=== PATIENT | female | born 1940 | race Caucasian/White ===

== ENCOUNTER 2016-07-02 18:45 | Emergency (ER) | payer MEDICARE, MEDICAID ==
[~2016-07-02] VITALS: Ht 149.9 cm; Wt 61.0 kg
[2016-07-02 19:24] VITALS: BP 165/72; PULSE 82; RESP 18; TEMP 97.5; O2SAT 97
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
[2016-07-02] MEDS ORDERED: SYNT88TA PO (19:46)
[2016-07-02] MEDS ORDERED: LEVE250 PO (19:46)
[2016-07-02 21:55] LABS: AUTOMATED NEUTROPHIL # 9.4 TH/MM3 (1.8-7.7); BASOPHIL # 0.1 TH/MM3 (0-0.2); BASOPHIL % 0.9 % (0.0-2.0); EOSINOPHIL # 0.3 TH/MM3 (0-0.4); EOSINOPHIL % 2.1 % (0.0-4.0); HEMATOCRIT 35.3 % (35.0-46.0); HEMO FLAGS DIFF FINAL; LYMPH % 16.4 % (9.0-44.0); LYMPHOCYTE # 2.1 TH/MM3 (1.0-4.8); MEAN CELL VOLUME 78.1 FL (80.0-100.0); MEAN CORPUSCULAR HEMOGLOBIN 25.6 PG (27.0-34.0); MEAN CORPUSCULAR HGB CONC 32.7 % (32.0-36.0); NEUT % 74.6 % (16.0-70.0); PLATELET COUNT 219 TH/MM3 (150-450); RED BLOOD COUNT 4.52 MIL/MM3 (4.00-5.30); RED CELL DISTRIBUTION WIDTH 17.9 % (11.6-17.2); WHITE BLOOD COUNT 12.6 TH/MM3 (4.0-11.0)
[2016-07-02 22:18] LABS: ANION GAP 27 MEQ/L (5-15)
[2016-07-02 22:21] LABS: ALKALINE PHOSPHATASE 126 U/L (45-117); ALT (GPT) 25 U/L (10-53); AST (GOT) 18 U/L (15-37); BICARBONATE LESS THAN 5.0 MEQ/L (21.0-32.0); BLOOD UREA NITROGEN LESS THAN 1 MG/DL (7-18); CHLORIDE 109 MEQ/L (98-107); GLOMERULAR FILTRATION RATE 70 ML/MIN (>89); POTASSIUM 3.4 MEQ/L (3.5-5.1); SODIUM (NA) 141 MEQ/L (136-145); TOTAL BILIRUBIN ADULT 0.4 MG/DL (0.2-1.0)
[2016-07-02] MEDS ORDERED: LOSA50TA PO (22:28)
[2016-07-02] MEDS ORDERED: ISOS10TA3 PO (22:28)
[2016-07-02] MEDS ORDERED: DIAZ10 PO (22:28)
[2016-07-02] MEDS ORDERED: ZOLO25TA PO (22:28)
[2016-07-02] MEDS ORDERED: PREV30CA11 PO (22:28)
[2016-07-02] MEDS ORDERED: LIPI20TA PO ×2 (22:28→23:09)
[2016-07-02] MEDS ORDERED: LEVEMIR SQ (22:28)
[2016-07-02] MEDS ORDERED: DIGO0.12 PO (22:28)
[2016-07-02] MEDS ORDERED: PLAV75TA29 PO (22:28)
[2016-07-02] MEDS ORDERED: ASPI81CH37 CHEW (22:53)
[2016-07-02 23:29] LABS: AMPHETAMINE, URINE NEG (NEG); BARBITURATES, URINE NEG (NEG); COCAINE, URINE NEG (NEG)
[2016-07-02] MEDS ORDERED: SERTRALINE HCL 50 MG TAB PO ONE (23:30)
[2016-07-02] MEDS ORDERED: ATORVASTATIN 20 MG TAB PO ONE (23:30)
[2016-07-02] MEDS ORDERED: levETIRAcetam 250 MG TAB PO ONE (23:30)
[2016-07-02 23:47] LABS: BACTERIA, URINE FEW /hpf; BLOOD, URINE NEG (NEG); GLUCOSE,URINE 300 mg/dL (NEG); HYALINE CAST, URINE 2 /lpf (RARE); KETONE, URINE 40 mg/dL (NEG); MUCUS URINE FEW /lpf (OCC); NITRITE,URINE NEG (NEG); SQUAMOUS EPITHELIAL CELL URINE 8 /hpf (0-5); URINE COLOR YELLOW (YELLW/STRAW)
[2016-07-02 23:49] LABS: COMMENT (UR) CULTURE INDICATED; CULTURE IF INDICATED CULTURE INDICATED
[2016-07-03 02:26] VITALS: BP 160/78; PULSE 72; RESP 18; O2SAT 96
[2016-07-03 08:39] VITALS: BP 138/64; PULSE 76; RESP 18; O2SAT 98
--- NOTE | 2016-07-03 13:19 | EKG ---
Date Performed: 07/02/2016 Time Performed: 19:58:32 PTAGE: 75 years EKG: Sinus rhythm LOW QRS VOLTAGE IN PRECORDIAL LEADS NONSPECIFIC ST & T-WAVE ABNORMALITY BORDERLINE ECG NO PREVIOUS TRACING DOCTOR: Robin Francisco Interpretating Date/Time 07/03/2016 13:16:48
[2016-07-03 14:15] VITALS: BP 149/65; PULSE 72; RESP 18; O2SAT 99
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
== END 2016-07-03 22:02 | disposition home or self-care (01) ==
LOC: NEPC 18:45 → NEPD 07-03 22:02
DX: T76.91XA Unspecified adult maltreatment, suspected, initial encounter (principal); F43.21 Adjustment disorder with depressed mood; Z79.899 Other long term (current) drug therapy
CPT/HCPCS: 80053; 80307; 81001; 85025; 87086; 93005

== ENCOUNTER 2016-09-03 18:27 | Inpatient (IN) | payer MEDICARE, MEDICAID, OTHER ==
[~2016-09-03] VITALS: Ht 149.9 cm; Wt 55.2 kg
[~2016-09-03 18:27] MED LIST: ASPI81CH37 CHEW; DIAZ10 PO; DIGO0.12 PO; ISOS10TA3 PO; LEVE250 PO; LEVEMIR SQ; LIPI20TA PO; LOSA50TA PO; PLAV75TA29 PO; PREV30CA11 PO; SYNT88TA PO; ZOLO25TA PO
[2016-09-03 18:30] VITALS: BP 134/70; PULSE 110; RESP 16; TEMP 98.3
[2016-09-03 22:37] VITALS: BP 141/79; PULSE 72; RESP 12; O2SAT 100
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
[2016-09-04 00:09] LABS: AUTOMATED NEUTROPHIL # 6.8 TH/MM3 (1.8-7.7); BASOPHIL % 0.4 % (0.0-2.0); EOSINOPHIL # 0.2 TH/MM3 (0-0.4); EOSINOPHIL % 2.3 % (0.0-4.0); HEMATOCRIT 35.7 % (35.0-46.0); HEMO FLAGS DIFF FINAL; LYMPH % 20.7 % (9.0-44.0); MEAN CORPUSCULAR HEMOGLOBIN 25.9 PG (27.0-34.0); MEAN CORPUSCULAR HGB CONC 32.8 % (32.0-36.0); MONO % 5.8 % (0.0-8.0); NEUT % 70.8 % (16.0-70.0); PLATELET COUNT 277 TH/MM3 (150-450); RED BLOOD COUNT 4.51 MIL/MM3 (4.00-5.30); RED CELL DISTRIBUTION WIDTH 17.8 % (11.6-17.2); WHITE BLOOD COUNT 9.6 TH/MM3 (4.0-11.0)
[2016-09-04 00:24] LABS: ALT (GPT) 31 U/L (10-53); ANION GAP 11 MEQ/L (5-15); AST (GOT) 32 U/L (15-37); BICARBONATE 23.8 MEQ/L (21.0-32.0); BLOOD UREA NITROGEN 9 MG/DL (7-18); CHLORIDE 108 MEQ/L (98-107); GLOMERULAR FILTRATION RATE 90 ML/MIN (>89); POTASSIUM 3.5 MEQ/L (3.5-5.1); SODIUM (NA) 143 MEQ/L (136-145)
[2016-09-04 00:26] LABS: ACETAMINOPHEN LESS THAN 2.0 MCG/ML (10.0-30.0); ALKALINE PHOSPHATASE 104 U/L (45-117); TOTAL BILIRUBIN ADULT 0.5 MG/DL (0.2-1.0)
[2016-09-04 01:00] VITALS: BP 134/81; PULSE 77; RESP 16; O2SAT 100
[2016-09-04 03:43] LABS: BACTERIA, URINE RARE /hpf; BLOOD, URINE NEG (NEG); COMMENT (UR) CULT NOT INDICATED; CULTURE IF INDICATED CULT NOT INDICATED; GLUCOSE,URINE 70 mg/dL (NEG); KETONE, URINE 40 mg/dL (NEG); MUCUS URINE FEW /lpf (OCC); NITRITE,URINE NEG (NEG); PH, URINE 6.5 (5.0-8.5); SQUAMOUS EPITHELIAL CELL URINE <1 /hpf (0-5); URINE COLOR YELLOW (YELLW/STRAW)
[2016-09-04 03:48] LABS: AMPHETAMINE, URINE NEG (NEG); BARBITURATES, URINE NEG (NEG); COCAINE, URINE NEG (NEG)
[2016-09-04 05:29] VITALS: BP 137/83; PULSE 72; RESP 16; O2SAT 100
[2016-09-04] MEDS ORDERED: DIPHENOXYLATE/ATROPINE 2.5 MG/0.025 MG TAB PO ONE (06:15)
[2016-09-04 11:00] VITALS: BP 148/67; PULSE 65; RESP 19; TEMP 97.2; O2SAT 96
[2016-09-04] MEDS ORDERED: ACETAMINOPHEN 325 MG TAB PO PRN (11:15)
[2016-09-04] MEDS ORDERED: MAGNESIUM HYDROXIDE SUSP 30 ML CUP PO PRN (11:15)
[2016-09-04] MEDS ORDERED: ALUMINUM/MAGNESIUM/SIMETH 30 ML CUP PO PRN (11:15)
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
[2016-09-04 12:33] LABS: C. DIFF EPI 027 PRESUMPTIVE NEGATIVE (NEGATIVE)
[2016-09-04 13:58] LABS: C. DIFF TOXIN PCR POSITIVE (NEGATIVE)
[2016-09-04 18:00] VITALS: BP 158/66; PULSE 74; TEMP 97.2; O2SAT 96
[2016-09-04] MEDS: levETIRAcetam 500 MG TAB PO SCH (23:31)
[2016-09-05 00:25] VITALS: BP 143/78; PULSE 111; RESP 20
[2016-09-05] MEDS ORDERED: OLANZapine IM 10 MG VIAL IM SCH (00:30)
[2016-09-05] MEDS: levETIRAcetam 500 MG TAB PO SCH ×2 (09:00→21:17)
[2016-09-05 10:40] LABS: ANION GAP 9 MEQ/L (5-15); BICARBONATE 22.4 MEQ/L (21.0-32.0); BLOOD UREA NITROGEN 8 MG/DL (7-18); CHLORIDE 110 MEQ/L (98-107); GLOMERULAR FILTRATION RATE 90 ML/MIN (>89); HDL CHOLESTEROL 43.7 MG/DL (40.0-60.0); LDL CHOLESTEROL 61 MG/DL (0-99); POTASSIUM 3.9 MEQ/L (3.5-5.1); SODIUM (NA) 141 MEQ/L (136-145)
[2016-09-05] MEDS: ASPIRIN 81 MG CHEW TAB CHEW SCH (10:45)
[2016-09-05] MEDS: LOSARTAN 50 MG TAB PO SCH (10:45)
[2016-09-05] MEDS: INSULIN DETEMIR 100 UNITS/ML VIAL SQ SCH ×2 (10:45→21:22)
[2016-09-05] MEDS: SERTRALINE HCL 50 MG TAB PO SCH (10:45)
[2016-09-05] MEDS: CLOPIDOGREL 75 MG TAB PO SCH (10:45)
[2016-09-05] MEDS: ISOSORBIDE MONONITRATE 30 MG TAB PO SCH ×2 (11:00→21:17)
[2016-09-05 13:52] LABS: HEMOGLOBIN A1a 1.6 %; HEMOGLOBIN A1b 2.3 %; HEMOGLOBIN Ao 80.6 %; HEMOGLOBIN LA1C 2.8 %; HEMOGLOBIN P3 4.6 %
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
[2016-09-05] MEDS ORDERED: DEXTROSE 50% IN WATER 50 ML VIAL(D50) IV PUSH PRN (15:45)
[2016-09-05] MEDS ORDERED: GLUCAGON 1 MG/ML VIAL OTHER PRN (15:45)
[2016-09-05] MEDS: INSULIN ASPART SUPPLEMENTAL SCALE SQ SCH ×2 (16:00→21:20)
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
[2016-09-05] MEDS ORDERED: cloNIDine HCL 0.1 MG TAB PO PRN (16:45)
[2016-09-05] MEDS: metroNIDAZOLE 500 MG TAB PO SCH (17:00)
[2016-09-05] MEDS: PANTOPRAZOLE SOD 40 MG DELAYED RELEASE TAB PO SCH (21:16)
[2016-09-05] MEDS: QUEtiapine FUMARATE 25 MG TAB PO SCH (21:16)
[2016-09-05] MEDS: ATORVASTATIN 20 MG TAB PO SCH (21:16)
--- NOTE | 2016-09-05 23:04 | RADRPT ---
EXAM DATE/TIME: 09/05/2016 22:28 [place] COMPARISON: No previous studies available for comparison. INDICATIONS : Shortness of breath. MEDICAL HISTORY : None. SURGICAL HISTORY : Pacemaker. ENCOUNTER: Initial ACUITY: 1 day PAIN SCORE: 0/10 LOCATION: Bilateral chest FINDINGS: There are nodular densities overlying the left lung. These are nonspecific. Differential includes r ib lesions or possibly true pulmonary nodules. Outpatient CT of the chest may be helpful for further evaluation of these findings. There is no pulmonary infiltrate or pulmonary vascular congestion. M edian sternotomy wires are noted status post cardiac surgery. A left subclavian single lead pacemake r has its tip in the right ventricle. No pneumothorax is noted. Degenerative changes and scoliosis of the thoracic spine are noted. CONCLUSION: 1. Nodular densities overlying the left lung which either represent rib lesions or possibly true pul monary nodules. Outpatient CT of the chest may be helpful for further evaluation of these nodules, i f clinically indicated. 2. No acute focal pulmonary infiltrate or pulmonary vascular congestion. 3. Degenerative changes and scoliosis of the thoracic spine. Margarito Howe MD on September 05, 2016 at 22:52 Board Certified Radiologist. This report was verified electronically.
[2016-09-06] MEDS: metroNIDAZOLE 500 MG TAB PO SCH ×3 (01:23→17:00)
[2016-09-06 05:36] VITALS: BP 109/56; PULSE 67; RESP 16; TEMP 98; O2SAT 95
[2016-09-06] MEDS: INSULIN ASPART SUPPLEMENTAL SCALE SQ SCH ×4 (06:14→21:45)
[2016-09-06] MEDS: LEVOTHYROXINE SODIUM 88 MCG TAB PO SCH (06:15)
[2016-09-06] MEDS: ASPIRIN 81 MG CHEW TAB CHEW SCH (09:55)
[2016-09-06] MEDS: CLOPIDOGREL 75 MG TAB PO SCH (09:55)
[2016-09-06] MEDS: SERTRALINE HCL 50 MG TAB PO SCH (09:55)
[2016-09-06] MEDS: ISOSORBIDE MONONITRATE 30 MG TAB PO SCH ×2 (09:55→21:42)
[2016-09-06] MEDS: LOSARTAN 50 MG TAB PO SCH (09:55)
[2016-09-06] MEDS: levETIRAcetam 500 MG TAB PO SCH ×2 (09:55→21:42)
[2016-09-06] MEDS: INSULIN DETEMIR 100 UNITS/ML VIAL SQ SCH (09:56)
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
--- NOTE | 2016-09-06 16:06 | HHI.PR ---
Subjective Remarks Follow up on patient with CVA, CAD and DM. She was seen and examined today. Patient denies any acute medical complaints. No pain or discomfort. Denies any fever, chills, nausea/vomiting, shortness of breath, chest pain or abdominal pain. Objective Vitals Vital Signs Date Time Temp Pulse Resp B/P Pulse Ox O2 Delivery O2 Flow Rate FiO2 09/06/16 05:36 98.0 67 16 109/56 95 I/O 09/05/16 09/05/16 09/05/16 09/06/16 09/06/16 09/06/16 06:59 14:59 22:59 06:59 14:59 22:59 Intake Total 1080 ml 0 ml 960 ml Balance 1080 ml 0 ml 960 ml Intake Oral 1080 ml 0 ml 960 ml # Voids 1 5 1 # Bowel Movements 0 0 Result Diagram: 09/03/16 2349 09/05/16 0803 Imaging Last Impressions Chest X-Ray 09/05/16 0000 Signed Impressions: Service Date/Time: Monday, September 05, 2016 22:28 - CONCLUSION: 1. Nodular densities overlying the left lung which either represent rib lesions or possibly true pulmonary nodules. Outpatient CT of the chest may be helpful for further evaluation of these nodules, if clinically indicated. 2. No acute focal pulmonary infiltrate or pulmonary vascular congestion. 3. Degenerative changes and scoliosis of the thoracic spine. Margarito Howe MD Objective Remarks GENERAL: Well-developed, well-nourished, INAD. Awake and alert. Sitting up in day room. SKIN: Focused skin assessment warm/dry. HEENT: Atraumatic. Normocephalic. EOMI. MMM. CARDIOVASCULAR: Regular rate and rhythm. No murmur appreciated. RESPIRATORY: Poor respiratory effort. Clear to auscultation. GASTROINTESTINAL: Abdomen soft, non-tender, nondistended. MUSCULOSKELETAL: No obvious deformities. No clubbing. No cyanosis. No edema. NEUROLOGICAL: Awake and alert. Able to move all extremities. Motor grossly within normal limits. Normal speech. Medications and IVs Current Medications Medications (Trade) Dose Ordered Sig/Alpa Route Start Time Stop Time Status Last Admin (Tylenol) 650 mg Q4H PRN PO 09/04/16 11:15 (Milk Of Magnesia Liq) 30 ml DAILY PRN PO 09/04/16 11:15 (Mag-Al Plus Susp Liq) 30 ml Q6H PRN PO 09/04/16 11:15 (Keppra) 1,000 mg BID PO 09/04/16 21:30 09/06/16 09:55 (SEROquel) 25 mg HS PO 09/05/16 21:00 09/05/16 21:16 (Aspirin Chew) 81 mg DAILY CHEW 09/05/16 10:45 09/06/16 09:55 (Lipitor) 20 mg HS PO 09/05/16 21:00 09/05/16 21:16 (Plavix) 75 mg DAILY PO 09/05/16 10:45 09/06/16 09:55 (Imdur) 30 mg BID PO 09/05/16 11:00 09/06/16 09:55 (Synthroid) 88 mcg DAILY@06 PO 09/06/16 06:00 09/06/16 06:15 (Cozaar) 50 mg DAILY PO 09/05/16 10:45 09/06/16 09:55 (Zoloft) 25 mg DAILY PO 09/05/16 10:45 09/06/16 09:55 (Protonix) 40 mg HS PO 09/05/16 21:00 09/05/16 21:16 (D50w (Vial) Inj) 25 ml UNSCH PRN IV PUSH 09/05/16 15:45 (Glucagon Inj) 1 mg UNSCH PRN OTHER 09/05/16 15:45 (Flagyl) 500 mg Q8H PO 09/05/16 17:00 09/06/16 09:55 (Catapres) 0.1 mg Q6H PRN PO 09/05/16 16:45 (Levemir Inj) 14 units DAILY SQ 09/07/16 09:00 A/P Assessment and Plan 76yo female with a past medical history of CVA, CAD and DM who is presenting to the hospital under a Gonzalez Act for aggressive behavior. Hospitalist services consulted for medical management. Psychosis The pt was brought to the hospital under a Gonzalez Act. May have delirium. UA negative. C diff positive. - care per psychiatry. - CXR shows nodular densities overlying the left lung which could possibly represent rib lesion or possible true pulmonary nodules. Patient will need a follow-up with her primary care physician for outpatient CT of the chest for further evaluation. - continue to treat C diff. C diff PCR positive but toxin study negative. Pt without diarrhea at this time. May be underlying reason for aggressive behavior. Daughter says she was recently treated for a severe stomach infection but is not sure of the details. She has had some loose stools at home. - repeat C diff cancelled by lab. - continue Flagyl. PITO Apparently the pt is on CPAP but has not been using it since May because it was broken. - continue to use CPAP from home DM On insulin as an outpt. - HgbA1c 7.8 - resume insulin but decrease Levemir to 14u daily. - continue insulin sliding scale. - BS 96 this am. Continue accuchecks. HTN - continue home meds. - clonidine as needed. PPx: SCDs Discussed with patient, nursing staff and Dr. Jg Tamayo,Tiffany PAN Sep 06, 2016 16:06
[2016-09-06 18:00] VITALS: BP 144/86; PULSE 107; RESP 16; TEMP 97.9; O2SAT 98
[2016-09-06] MEDS: QUEtiapine FUMARATE 25 MG TAB PO SCH (21:42)
[2016-09-06] MEDS: ATORVASTATIN 20 MG TAB PO SCH (21:42)
[2016-09-06] MEDS: PANTOPRAZOLE SOD 40 MG DELAYED RELEASE TAB PO SCH (21:42)
[2016-09-07] MEDS: metroNIDAZOLE 500 MG TAB PO SCH ×3 (00:20→17:00)
[2016-09-07 06:00] VITALS: BP 97/50; PULSE 71; RESP 16; O2SAT 100
[2016-09-07] MEDS: INSULIN ASPART SUPPLEMENTAL SCALE SQ SCH ×4 (06:15→21:32)
[2016-09-07] MEDS: LEVOTHYROXINE SODIUM 88 MCG TAB PO SCH (06:20)
[2016-09-07] MEDS: ASPIRIN 81 MG CHEW TAB CHEW SCH (09:00)
[2016-09-07] MEDS: CLOPIDOGREL 75 MG TAB PO SCH (09:00)
[2016-09-07] MEDS: INSULIN DETEMIR 100 UNITS/ML VIAL SQ SCH (09:00)
[2016-09-07] MEDS: ISOSORBIDE MONONITRATE 30 MG TAB PO SCH ×2 (09:00→21:30)
[2016-09-07] MEDS: levETIRAcetam 500 MG TAB PO SCH ×2 (09:00→21:30)
[2016-09-07] MEDS: SERTRALINE HCL 50 MG TAB PO SCH (09:00)
[2016-09-07] MEDS: LOSARTAN 50 MG TAB PO SCH (09:00)
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
[2016-09-07 17:44] VITALS: BP 123/63; PULSE 88; RESP 18; TEMP 97.5; O2SAT 97
[2016-09-07] MEDS: QUEtiapine FUMARATE 25 MG TAB PO SCH (21:30)
[2016-09-07] MEDS: PANTOPRAZOLE SOD 40 MG DELAYED RELEASE TAB PO SCH (21:30)
[2016-09-07] MEDS: ATORVASTATIN 20 MG TAB PO SCH (21:30)
[2016-09-08] MEDS: metroNIDAZOLE 500 MG TAB PO SCH ×2 (00:04→09:08)
[2016-09-08 06:27] VITALS: BP 141/80; PULSE 95; RESP 17; TEMP 96.8; O2SAT 95
[2016-09-08] MEDS: LEVOTHYROXINE SODIUM 88 MCG TAB PO SCH (06:28)
[2016-09-08] MEDS: INSULIN ASPART SUPPLEMENTAL SCALE SQ SCH ×2 (06:30→11:00)
[2016-09-08] MEDS: INSULIN DETEMIR 100 UNITS/ML VIAL SQ SCH (09:00)
[2016-09-08] MEDS: CLOPIDOGREL 75 MG TAB PO SCH (09:09)
[2016-09-08] MEDS: LOSARTAN 50 MG TAB PO SCH (09:09)
[2016-09-08] MEDS: levETIRAcetam 500 MG TAB PO SCH (09:09)
[2016-09-08] MEDS: ISOSORBIDE MONONITRATE 30 MG TAB PO SCH (09:09)
[2016-09-08] MEDS: SERTRALINE HCL 50 MG TAB PO SCH (09:09)
[2016-09-08] MEDS: ASPIRIN 81 MG CHEW TAB CHEW SCH (09:09)
[2016-09-08] MEDS ORDERED: QUET1TAB7 PO (11:00)
[2016-09-08] MEDS ORDERED: KEPP10002 PO (11:00)
[2016-09-08] MEDS ORDERED: ATOR20TA15 PO (11:00)
[2016-09-08] MEDS ORDERED: SYNT88TA PO (11:00)
[2016-09-08] MEDS ORDERED: PANT40TA3 PO (11:00)
[2016-09-08] MEDS ORDERED: LEVEMIR SQ (11:00)
[2016-09-08] MEDS ORDERED: COZA50TA PO (11:00)
[2016-09-08] MEDS ORDERED: ISOS30TA3 PO (11:00)
[2016-09-08] MEDS ORDERED: METR-1 PO (11:00)
[2016-09-08] MEDS ORDERED: ASPI81CH25 CHEW (11:00)
[2016-09-08] MEDS ORDERED: PLAV75TA29 PO (11:00)
[2016-09-08] MEDS ORDERED: ZOLO25TA PO (11:00)
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
--- NOTE | 2016-09-08 13:01 | HHI.PR ---
Subjective Remarks Follow up on patient with CVA, CAD and DM. She is seen and examined today. Reports she is doing well. Denies any abdominal cramping, diarrhea. Denies pain and discomfort. Denies SOB/ dyspnea. Denies chest pain, palpitations, headaches, dizziness. Denies fevers, chills, n/v. Denies hematuria, dysuria. Objective Vitals Vital Signs Date Time Temp Pulse Resp B/P Pulse Ox O2 Delivery O2 Flow Rate FiO2 09/08/16 06:27 96.8 95 17 141/80 95 09/07/16 17:44 97.5 88 18 123/63 97 I/O 09/07/16 09/07/16 09/07/16 09/08/16 09/08/16 09/08/16 07:00 15:00 23:00 07:00 15:00 23:00 Intake Total 720 ml 1680 ml 0 ml 240 ml Balance 720 ml 1680 ml 0 ml 240 ml Intake Oral 720 ml 1680 ml 0 ml 240 ml # Voids 1 5 1 Result Diagram: 09/03/16 2349 09/05/16 0803 Imaging Last Impressions Chest X-Ray 09/05/16 0000 Signed Impressions: Service Date/Time: Monday, September 05, 2016 22:28 - CONCLUSION: 1. Nodular densities overlying the left lung which either represent rib lesions or possibly true pulmonary nodules. Outpatient CT of the chest may be helpful for further evaluation of these nodules, if clinically indicated. 2. No acute focal pulmonary infiltrate or pulmonary vascular congestion. 3. Degenerative changes and scoliosis of the thoracic spine. Margarito Howe MD Objective Remarks GENERAL: This is a well-nourished, well-developed patient, in no apparent distress. SKIN: Warm and dry HEENT: Normocephalic. Pupils equal round and reactive. Nose without bleeding. Airway patent. NECK: Trachea midline. No JVD. Supple. CARDIOVASCULAR: Regular rate and rhythm without murmurs, gallops, or rubs. RESPIRATORY: Clear to auscultation. Breath sounds equal bilaterally. No wheezes , rales, or rhonchi. GASTROINTESTINAL: Abdomen soft, non-tender, nondistended. Bowel Sounds normoactive x4. MUSCULOSKELETAL: Extremities without clubbing, cyanosis, or edema. NEUROLOGICAL: Awake and alert. Oriented to place, person. No focal neuro deficit. Moves all extremities. Normal speech. A/P Problem List: (1) Adjustment disorder ICD Code: F43.20 Status: Acute Assessment and Plan 76yo female with a past medical history of CVA, CAD and DM who is presenting to the hospital under a Gonzalez Act for aggressive behavior. Hospitalist services consulted for medical management. Psychosis The pt was brought to the hospital under a Gonzalez Act. - Aged by psychiatry team - CXR shows nodular densities overlying the left lung which could possibly represent rib lesion or possible true pulmonary nodules. - Patient will need a follow-up with her primary care physician for outpatient CT of the chest for further evaluation. C diff - PCR positive but toxin study negative - Continue Flagyl use - Denies any diarrhea on exam PITO - continue to use CPAP from home DM - On insulin as an outpt. - HgbA1c 7.8 - resume insulin but decrease Levemir to 14u daily. - continue insulin sliding scale. HTN CAD HLD - continue home meds, atorvastatin 20 mg daily at bedtime, Plavix, isosorbide 30 mg twice a day, aspirin 81 mg daily, losartan 50 mg daily - clonidine as needed - Monitor BP trend Hypothyroidism - Continue levothyroxine 88 g daily DVT prop ambulatory with walker use Discussed with patient, nursing staff and Dr. Jg Pemberton from Hospitalist standpoint. We will sign off. Reconsult as needed. 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
[2016-09-08] MEDS ORDERED: METR500T10 PO (15:58)
== END 2016-09-08 16:15 | disposition home or self-care (01) | DRG 882 ==
LOC: NEDAMB 18:27 → NEDA 09-04 10:40 → H250 09-04 12:05
PROVIDERS: ADMIT Psychiatry & Neurology Psychiatry; ATTEND Psychiatry & Neurology Psychiatry
DX: F43.20 Adjustment disorder, unspecified (principal); A04.7 Enterocolitis due to Clostridium difficile; R56.9 Unspecified convulsions; E11.9 Type 2 diabetes mellitus without complications; Z79.4 Long term (current) use of insulin; I10 Essential (primary) hypertension; Z79.82 Long term (current) use of aspirin; H91.90 Unspecified hearing loss, unspecified ear; Z86.73 Personal history of transient ischemic attack (TIA), and cerebral infarction without residual deficits; I25.10 Atherosclerotic heart disease of native coronary artery without angina pectoris; Z95.0 Presence of cardiac pacemaker; G47.33 Obstructive sleep apnea (adult) (pediatric); E78.5 Hyperlipidemia, unspecified; E03.9 Hypothyroidism, unspecified; Z96.652 Presence of left artificial knee joint
CPT/HCPCS: 71010; 80048; 80053; 80061; 80162; 80307; 81001; 82306; 82607; 82948; 83036; 85025; 87329; 87493; 87506; 99285; J1815

== ENCOUNTER 2016-09-10 14:25 | Emergency (ER) | payer MEDICARE, MEDICAID, OTHER ==
[~2016-09-10] VITALS: Ht 157.5 cm; Wt 60.0 kg
[~2016-09-10 14:25] MED LIST changes: +ASPI81CH25 CHEW; -ASPI81CH37 CHEW; +ATOR20TA15 PO; +COZA50TA PO; -ISOS10TA3 PO; +ISOS30TA3 PO; +KEPP10002 PO; -LIPI20TA PO; -LOSA50TA PO; +METR500T10 PO; +PANT40TA3 PO; -PREV30CA11 PO; +QUET1TAB7 PO
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
[2016-09-10 15:50] VITALS: BP 152/78; PULSE 107; RESP 16; TEMP 97.8; O2SAT 100
[2016-09-10 16:54] VITALS: BP 155/71; PULSE 98; RESP 16; TEMP 97.8; O2SAT 98
[2016-09-10 19:24] LABS: AMPHETAMINE, URINE NEG (NEG); BARBITURATES, URINE NEG (NEG); COCAINE, URINE NEG (NEG)
[2016-09-10] MEDS ORDERED: GLUCAGON 1 MG/ML VIAL OTHER PRN (20:15)
[2016-09-10] MEDS ORDERED: QUEtiapine FUMARATE 25 MG TAB PO ONE (20:15)
[2016-09-10] MEDS ORDERED: DEXTROSE 50% IN WATER 50 ML VIAL(D50) IV PRN (20:15)
[2016-09-10] MEDS ORDERED: levETIRAcetam 500 MG TAB PO ONE (20:15)
[2016-09-10] MEDS: INSULIN NovoLIN REGULAR SUPPLEMENTAL SCALE SQ SCH (22:10)
[2016-09-10 22:17] VITALS: BP 161/74; PULSE 103; RESP 16; TEMP 96.6; O2SAT 98
[2016-09-11] MEDS: INSULIN NovoLIN REGULAR SUPPLEMENTAL SCALE SQ SCH (07:00)
[2016-09-11 07:08] VITALS: BP 139/73; PULSE 94; RESP 18; O2SAT 100
== END 2016-09-11 07:42 ==
LOC: NEPD 14:25 → NEPJ 09-11 07:42
DX: Z00.8 Encounter for other general examination (principal); G40.909 Epilepsy, unspecified, not intractable, without status epilepticus; F03.90 Unspecified dementia, unspecified severity, without behavioral disturbance, psychotic disturbance, mood disturbance, and anxiety; F41.9 Anxiety disorder, unspecified; E78.00 Pure hypercholesterolemia, unspecified; I10 Essential (primary) hypertension; E11.9 Type 2 diabetes mellitus without complications; E07.9 Disorder of thyroid, unspecified; Z79.02 Long term (current) use of antithrombotics/antiplatelets
CPT/HCPCS: 80307; 99283

== ENCOUNTER 2016-10-21 15:16 | Inpatient (IN) | payer MEDICARE, OTHER, MEDICAID ==
[~2016-10-21] VITALS: Ht 149.9 cm; Wt 52.2 kg
[~2016-10-21 15:16] MED LIST changes: -LEVE250 PO
[2016-10-21 15:55] VITALS: BP 126/57; PULSE 99; RESP 18; TEMP 98.7; O2SAT 97
[2016-10-21] MEDS ORDERED: DILA100C PO (16:06)
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
[2016-10-21 17:05] LABS: BACTERIA, URINE RARE /hpf; BLOOD, URINE NEG (NEG); COMMENT (UR) CULTURE INDICATED; CULTURE IF INDICATED CULTURE INDICATED; GLUCOSE,URINE 1000 mg/dL (NEG); HYALINE CAST, URINE 2 /lpf (RARE); KETONE, URINE NEG (NEG); MUCUS URINE FEW /lpf (OCC); NITRITE,URINE NEG (NEG); SQUAMOUS EPITHELIAL CELL URINE 6 /hpf (0-5); URINE COLOR YELLOW (YELLW/STRAW)
[2016-10-21 17:07] LABS: BASOPHIL % 0.3 % (0.0-2.0); EOSINOPHIL # 0.2 TH/MM3 (0-0.4); EOSINOPHIL % 3.5 % (0.0-4.0); HEMATOCRIT 36.6 % (35.0-46.0); HEMO FLAGS DIFF FINAL; LYMPHOCYTE # 1.4 TH/MM3 (1.0-4.8); MEAN CELL VOLUME 82.4 FL (80.0-100.0); MEAN CORPUSCULAR HEMOGLOBIN 26.8 PG (27.0-34.0); MEAN CORPUSCULAR HGB CONC 32.5 % (32.0-36.0); NEUT % 66.2 % (16.0-70.0); PLATELET COUNT 224 TH/MM3 (150-450); RED BLOOD COUNT 4.44 MIL/MM3 (4.00-5.30); RED CELL DISTRIBUTION WIDTH 17.3 % (11.6-17.2); WHITE BLOOD COUNT 6.1 TH/MM3 (4.0-11.0)
[2016-10-21 17:10] LABS: AMPHETAMINE, URINE NEG (NEG); BARBITURATES, URINE NEG (NEG); COCAINE, URINE NEG (NEG)
[2016-10-21 17:22] LABS: ALT (GPT) 23 U/L (10-53); ANION GAP 10 MEQ/L (5-15); AST (GOT) 16 U/L (15-37); BICARBONATE 21.2 MEQ/L (21.0-32.0); BLOOD UREA NITROGEN 11 MG/DL (7-18); CHLORIDE 109 MEQ/L (98-107); GLOMERULAR FILTRATION RATE 79 ML/MIN (>89); POTASSIUM 4.1 MEQ/L (3.5-5.1); SODIUM (NA) 140 MEQ/L (136-145)
[2016-10-21] MEDS ORDERED: NITROFURANTOIN MONOHYD MACROCR 100 MG CAP PO ONE (17:30)
[2016-10-21 17:35] LABS: ALKALINE PHOSPHATASE 91 U/L (45-117); DIGOXIN 0.6 NG/ML (0.8-2.0); TOTAL BILIRUBIN ADULT 0.3 MG/DL (0.2-1.0)
[2016-10-21 18:03] VITALS: BP 128/68; PULSE 86; RESP 18; O2SAT 98
[2016-10-21] MEDS ORDERED: levETIRAcetam 500 MG TAB PO ONE (20:15)
[2016-10-21] MEDS ORDERED: INSULIN DETEMIR 100 UNITS/ML VIAL SQ SCH (21:00)
[2016-10-22] MEDS ORDERED: GLUCAGON 1 MG/ML VIAL OTHER PRN (00:15)
[2016-10-22] MEDS ORDERED: ALUMINUM/MAGNESIUM/SIMETH 30 ML CUP PO PRN ×2 (00:15→13:45)
[2016-10-22] MEDS ORDERED: DEXTROSE 50% IN WATER 50 ML VIAL(D50) IV PRN (00:15)
[2016-10-22] MEDS ORDERED: LORazepam 0.5 MG TAB PO PRN (00:15)
[2016-10-22] MEDS ORDERED: MAGNESIUM HYDROXIDE SUSP 30 ML CUP PO PRN ×2 (00:15→13:45)
[2016-10-22] MEDS ORDERED: diphenhydrAMINE HCL 50 MG CAP PO PRN (00:15)
[2016-10-22] MEDS ORDERED: LORazepam 2 MG/ML VIAL IM PRN (00:15)
[2016-10-22] MEDS ORDERED: ACETAMINOPHEN 325 MG TAB PO PRN ×2 (00:15→13:45)
[2016-10-22] MEDS ORDERED: diphenhydrAMINE HCL 50 MG/ML VIAL IM PRN (00:15)
[2016-10-22 03:32] VITALS: BP 170/78; PULSE 87; RESP 19; TEMP 96.8; O2SAT 97
[2016-10-22 06:03] VITALS: BP 151/67; PULSE 86; RESP 17; TEMP 97.6; O2SAT 95
[2016-10-22] MEDS: INSULIN ASPART SUPPLEMENTAL SCALE SQ SCH ×5 (06:25→21:14)
[2016-10-22] MEDS: LEVOTHYROXINE SODIUM 88 MCG TAB PO SCH (06:25)
[2016-10-22] MEDS: PHENYTOIN SODIUM 100 MG CAP PO SCH ×3 (09:00→18:00)
[2016-10-22] MEDS ORDERED: REMOVE OLD PATCH T-DERMAL SCH (09:00)
[2016-10-22] MEDS: SERTRALINE HCL 50 MG TAB PO SCH (09:00)
[2016-10-22] MEDS: INSULIN DETEMIR 100 UNITS/ML VIAL SQ SCH ×2 (09:00→21:15)
[2016-10-22] MEDS ORDERED: NICOTINE 21 MG/24 HR PATCH T-DERMAL SCH (09:00)
[2016-10-22] MEDS: ISOSORBIDE MONONITRATE 30 MG TAB PO SCH ×2 (09:48→21:25)
[2016-10-22] MEDS: metroNIDAZOLE 500 MG TAB PO SCH ×3 (09:49→18:00)
[2016-10-22] MEDS: NITROFURANTOIN MONOHYD MACROCR 100 MG CAP PO SCH ×2 (09:49→18:00)
[2016-10-22] MEDS: DIGOXIN 0.125 MG TAB PO SCH (09:49)
[2016-10-22] MEDS: CLOPIDOGREL 75 MG TAB PO SCH (09:49)
[2016-10-22] MEDS: levETIRAcetam 500 MG TAB PO SCH ×2 (09:49→21:24)
[2016-10-22] MEDS: ASPIRIN 81 MG CHEW TAB CHEW SCH (09:50)
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
--- NOTE | 2016-10-22 15:29 | EKG ---
Date Performed: 10/21/2016 Time Performed: 16:13:34 PTAGE: 76 years EKG: Sinus rhythm NONSPECIFIC T-WAVE ABNORMALITY Compared to previous tracing, there is slight improvement in the T wa ve changes ABNORMAL ECG PREVIOUS TRACING : 07/02/2016 19.58 DOCTOR: Aurelio Mcadams Interpretating Date/Time 10/22/2016 15:27:25
[2016-10-22 16:21] VITALS: BP 113/55; PULSE 70; RESP 18; TEMP 97.7; O2SAT 97
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
[2016-10-22] MEDS: QUEtiapine FUMARATE 25 MG TAB PO SCH (21:24)
[2016-10-22] MEDS: PANTOPRAZOLE SOD 40 MG DELAYED RELEASE TAB PO SCH (21:24)
[2016-10-22] MEDS: ATORVASTATIN 20 MG TAB PO SCH (21:25)
[2016-10-23] MEDS: LEVOTHYROXINE SODIUM 88 MCG TAB PO SCH (05:48)
[2016-10-23 06:00] VITALS: BP 94/53; PULSE 65; RESP 16; TEMP 97.8; O2SAT 100
[2016-10-23] MEDS: INSULIN ASPART SUPPLEMENTAL SCALE SQ SCH ×4 (06:23→20:41)
[2016-10-23] MEDS: INSULIN DETEMIR 100 UNITS/ML VIAL SQ SCH (08:40)
[2016-10-23] MEDS ORDERED: GLUCAGON 1 MG/ML VIAL OTHER PRN (09:00)
[2016-10-23] MEDS: LACTOBACILLUS ACIDOPHILUS TAB PO SCH ×2 (09:00→20:38)
[2016-10-23] MEDS ORDERED: DEXTROSE 50% IN WATER 50 ML VIAL(D50) IV PRN (09:00)
[2016-10-23 09:06] VITALS: BP 104/53; PULSE 66
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
[2016-10-23] MEDS: PHENYTOIN SODIUM 100 MG CAP PO SCH ×3 (09:38→18:11)
[2016-10-23] MEDS: DIGOXIN 0.125 MG TAB PO SCH (09:39)
[2016-10-23] MEDS: NITROFURANTOIN MONOHYD MACROCR 100 MG CAP PO SCH ×2 (09:39→18:11)
[2016-10-23] MEDS: SERTRALINE HCL 50 MG TAB PO SCH (09:39)
[2016-10-23] MEDS: ISOSORBIDE MONONITRATE 30 MG TAB PO SCH ×2 (09:39→20:38)
[2016-10-23] MEDS: ASPIRIN 81 MG CHEW TAB CHEW SCH (09:39)
[2016-10-23] MEDS: CLOPIDOGREL 75 MG TAB PO SCH (09:39)
[2016-10-23] MEDS: levETIRAcetam 500 MG TAB PO SCH ×2 (09:39→20:38)
[2016-10-23 09:44] LABS: ANION GAP 7 MEQ/L (5-15); BICARBONATE 24.1 MEQ/L (21.0-32.0); BLOOD UREA NITROGEN 12 MG/DL (7-18); CHLORIDE 109 MEQ/L (98-107); GLOMERULAR FILTRATION RATE 82 ML/MIN (>89); POTASSIUM 3.8 MEQ/L (3.5-5.1); SODIUM (NA) 140 MEQ/L (136-145)
[2016-10-23 09:55] LABS: FREE T4 1.24 NG/DL (0.76-1.46); HDL CHOLESTEROL 52.2 MG/DL (40.0-60.0); LDL CHOLESTEROL 69 MG/DL (0-99)
[2016-10-23] MEDS ORDERED: INSULIN ASPART SUPPLEMENTAL SCALE SQ SCH (11:00)
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
[2016-10-23] MEDS: QUEtiapine FUMARATE 25 MG TAB PO SCH (20:38)
[2016-10-23] MEDS: ATORVASTATIN 20 MG TAB PO SCH (20:38)
[2016-10-23] MEDS: PANTOPRAZOLE SOD 40 MG DELAYED RELEASE TAB PO SCH (20:38)
[2016-10-24 06:00] VITALS: BP 114/51; PULSE 66; RESP 15; TEMP 98.4; O2SAT 99
[2016-10-24] MEDS: SYNTHROID 88 MCG PO SCH (06:00)
[2016-10-24] MEDS ORDERED: SYNTHROID 88 MCG PO SCH (06:00)
[2016-10-24] MEDS: INSULIN ASPART SUPPLEMENTAL SCALE SQ SCH ×4 (06:44→20:59)
[2016-10-24] MEDS: LACTOBACILLUS ACIDOPHILUS TAB PO SCH ×2 (08:46→21:02)
[2016-10-24] MEDS: ISOSORBIDE MONONITRATE 30 MG TAB PO SCH ×2 (08:46→21:02)
[2016-10-24] MEDS: SERTRALINE HCL 50 MG TAB PO SCH (08:46)
[2016-10-24] MEDS: levETIRAcetam 500 MG TAB PO SCH ×2 (08:46→21:02)
[2016-10-24] MEDS: DIGOXIN 0.125 MG TAB PO SCH (08:46)
[2016-10-24] MEDS: NITROFURANTOIN MONOHYD MACROCR 100 MG CAP PO SCH ×2 (08:47→18:00)
[2016-10-24] MEDS: PHENYTOIN SODIUM 100 MG CAP PO SCH ×4 (08:47→18:00)
[2016-10-24] MEDS: CLOPIDOGREL 75 MG TAB PO SCH (08:47)
[2016-10-24] MEDS: ASPIRIN 81 MG CHEW TAB CHEW SCH (08:47)
[2016-10-24 09:55] LABS: HEMOGLOBIN A1a 1.4 %; HEMOGLOBIN Ao 82.7 %; HEMOGLOBIN LA1C 1.8 %; HEMOGLOBIN P3 3.8 %
--- NOTE | 2016-10-24 16:55 | HHI.PYPN ---
Subjective Remarks Pt seen and discussed with staff. She has been refusing afternoon dose of dilantin and has been cursing at RN during medication pass. She has been intrusive with other patients and has had to be redirected from attempting to provide nursing care. She has been irritable and cursing on unit, but has calmed as day has proceeded. No SI/HI. No medication side effects. Objective Alert: Yes [place]: Person, Place Mood: Other (irritable) Affect: Restricted Memory Intact: Comment (fair) Hallucinations: Other (none) Delusions: Yes Delusion Type: Paranoid (decreased) Suicidal: Ideation (denies) Homicidal: Ideation (denies) Insight/Judgment poor Labs Date/Time Procedure Status Source Growth 10/21/16 16:51 Urine Culture - Final Complete Urine Clean Catch Enterococcus Faecalis Vitals/IOs Vital Signs Date Time Temp Pulse Resp B/P Pulse Ox O2 Delivery O2 Flow Rate FiO2 10/24/16 06:00 98.4 66 15 114/51 99 10/21/16 18:03 Room Air Intake and Output 10/23/16 10/23/16 10/24/16 08:00 16:00 00:00 Intake Total 960 ml Balance 960 ml Assessment & Plan Problem List: (1) Major depressive disorder, recurrent episode, moderate with mixed features ICD Code: F33.1 (2) Mild cognitive impairment ICD Code: G31.84 Assessment & Plan Continue current tx plan.Estimated LOS: days Justification for Cont. Inpt. impairments in safety Request HC Surrog/Guard Advoc?: Jazmine Rivas MD Oct 24, 2016 16:55
[2016-10-24 18:51] VITALS: BP 113/56; PULSE 91; RESP 18; TEMP 98.4
[2016-10-24] MEDS: QUEtiapine FUMARATE 25 MG TAB PO SCH (21:02)
[2016-10-24] MEDS: PANTOPRAZOLE SOD 40 MG DELAYED RELEASE TAB PO SCH (21:02)
[2016-10-24] MEDS: ATORVASTATIN 20 MG TAB PO SCH (21:02)
[2016-10-25 05:43] VITALS: BP 110/53; PULSE 75; RESP 16; TEMP 98.1
[2016-10-25] MEDS: INSULIN ASPART SUPPLEMENTAL SCALE SQ SCH ×4 (05:57→20:16)
[2016-10-25] MEDS: SYNTHROID 88 MCG PO SCH (06:00)
[2016-10-25] MEDS: ISOSORBIDE MONONITRATE 30 MG TAB PO SCH ×2 (08:43→20:12)
[2016-10-25] MEDS: LACTOBACILLUS ACIDOPHILUS TAB PO SCH ×2 (08:43→20:12)
[2016-10-25] MEDS: ASPIRIN 81 MG CHEW TAB CHEW SCH (08:43)
[2016-10-25] MEDS: NITROFURANTOIN MONOHYD MACROCR 100 MG CAP PO SCH (08:43)
[2016-10-25] MEDS: levETIRAcetam 500 MG TAB PO SCH ×2 (08:43→20:13)
[2016-10-25] MEDS: CLOPIDOGREL 75 MG TAB PO SCH (08:43)
[2016-10-25] MEDS: DIGOXIN 0.125 MG TAB PO SCH (08:43)
[2016-10-25] MEDS: PHENYTOIN SODIUM 100 MG CAP PO SCH ×3 (08:43→18:00)
--- NOTE | 2016-10-25 12:24 | HHI.PYPN ---
Subjective Remarks Patient discussed with treatment team, patient seen on unit, chart review, patient compliant medications. Patient much calmer focused less mood lability or tearfulness. States she had a conversation with her daughter with the weekend. Appears some of much more appropriate response to her daughter today. Patient denies suicidality homicidality at this time. At this time and feel patient has capacity to sign voluntary. I will lift Gonzalez act allow the patient to sign voluntary Review of Systems Except as stated in HPI: all other systems reviewed are Neg Objective Alert: Yes [place]: Person, Place Mood: Other (irritable) Affect: Restricted Memory Intact: Comment (fair) Hallucinations: Other (none) Delusions: Yes Delusion Type: Paranoid (decreased) Suicidal: Ideation (denies) Homicidal: Ideation (denies) Insight/Judgment Poor Labs Date/Time Procedure Status Source Growth 10/21/16 16:51 Urine Culture - Final Complete Urine Clean Catch Enterococcus Faecalis Vitals/IOs Vital Signs Date Time Temp Pulse Resp B/P Pulse Ox O2 Delivery O2 Flow Rate FiO2 10/25/16 05:43 98.1 75 16 110/53 10/24/16 06:00 99 10/21/16 18:03 Room Air Intake and Output 10/24/16 10/24/16 10/25/16 08:00 16:00 00:00 Intake Total 1560 ml Balance 1560 ml Assessment & Plan Problem List: (1) Major depressive disorder, recurrent episode, moderate with mixed features ICD Code: F33.1 (2) Mild cognitive impairment ICD Code: G31.84 Assessment & Plan Estimated LOS: days patient mood is improving, should more focused and appropriate. We'll attempt to meet with patient's daughter tomorrow to consider discharge soon Justification for Cont. Inpt. At this time patient will decompensate if placed on the lower level of care Discharge Planning To be determined Request HC Surrog/Guard Advoc?: No Joaquim Cruz MD Oct 25, 2016 12:24
--- NOTE | 2016-10-25 15:28 | PD.TTN ---
Present for Treatment Team Treatment Team Staff: Provider (Dr Cruz), Nurse (Starr), Psych Therapist ( Ronel ), Occupational Therapist (Susanne) Patient Problems 1. Discharge planning 2. Medication compliance 3. Knowledge deficit 4. Lack of coping skills Progress Toward Goals Provider Input: pt wants update from weekend Pt has been calm and compliant and is very oriented asked for family meeting Nurse Input: pt is doing well DCF was called Psych Therapist Input: Pt is presenting aler and oriented times 4 family meeting set up for tomorrow afternoon pt is denying any issues however has been BA several times Occupational Therapist Input: she is attending some groups Ronel Pretty [employer] Oct 25, 2016 15:28
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
[2016-10-25 18:02] VITALS: BP 133/60; PULSE 78; RESP 18; TEMP 97.1; O2SAT 97
[2016-10-25] MEDS: QUEtiapine FUMARATE 25 MG TAB PO SCH (20:13)
[2016-10-25] MEDS: ATORVASTATIN 20 MG TAB PO SCH (20:13)
[2016-10-25] MEDS: INSULIN DETEMIR 100 UNITS/ML VIAL SQ SCH (20:16)
[2016-10-25] MEDS: PANTOPRAZOLE SOD 40 MG DELAYED RELEASE TAB PO SCH (20:39)
[2016-10-25] MEDS: CIPROFLOXACIN 250 MG TAB PO SCH (20:53)
[2016-10-26 05:34] VITALS: BP 113/54; PULSE 65; RESP 14; TEMP 97.6; O2SAT 100
[2016-10-26] MEDS: SYNTHROID 88 MCG PO SCH (05:58)
[2016-10-26] MEDS: INSULIN ASPART SUPPLEMENTAL SCALE SQ SCH ×4 (05:58→21:00)
[2016-10-26] MEDS: CLOPIDOGREL 75 MG TAB PO SCH (08:37)
[2016-10-26] MEDS: PHENYTOIN SODIUM 100 MG CAP PO SCH ×3 (08:37→17:03)
[2016-10-26] MEDS: ASPIRIN 81 MG CHEW TAB CHEW SCH (08:37)
[2016-10-26] MEDS: DIGOXIN 0.125 MG TAB PO SCH (08:38)
[2016-10-26] MEDS: INSULIN DETEMIR 100 UNITS/ML VIAL SQ SCH ×2 (08:38→21:00)
[2016-10-26] MEDS: levETIRAcetam 500 MG TAB PO SCH ×2 (08:38→21:00)
[2016-10-26] MEDS: LACTOBACILLUS ACIDOPHILUS TAB PO SCH ×2 (08:38→21:00)
[2016-10-26] MEDS: CIPROFLOXACIN 250 MG TAB PO SCH ×2 (08:38→21:00)
[2016-10-26] MEDS: ISOSORBIDE MONONITRATE 30 MG TAB PO SCH ×2 (08:38→21:00)
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
[2016-10-26] MEDS: QUEtiapine FUMARATE 25 MG TAB PO SCH (17:09)
[2016-10-26 18:19] VITALS: BP 123/60; PULSE 84; RESP 18; TEMP 97.7; O2SAT 100
[2016-10-26] MEDS: PANTOPRAZOLE SOD 40 MG DELAYED RELEASE TAB PO SCH (21:00)
[2016-10-26] MEDS: ATORVASTATIN 20 MG TAB PO SCH (21:00)
[2016-10-27 05:45] VITALS: BP 127/57; PULSE 73; RESP 17; TEMP 97.9
[2016-10-27] MEDS: SYNTHROID 88 MCG PO SCH (06:00)
[2016-10-27 06:28] VITALS: BP 127/57; PULSE 73; RESP 16; TEMP 97.9; O2SAT 98
[2016-10-27] MEDS: INSULIN ASPART SUPPLEMENTAL SCALE SQ SCH (07:00)
[2016-10-27] MEDS: QUEtiapine FUMARATE 25 MG TAB PO SCH (08:18)
[2016-10-27] MEDS: CLOPIDOGREL 75 MG TAB PO SCH (08:18)
[2016-10-27] MEDS: LACTOBACILLUS ACIDOPHILUS TAB PO SCH (08:18)
[2016-10-27] MEDS: CIPROFLOXACIN 250 MG TAB PO SCH (08:19)
[2016-10-27] MEDS: levETIRAcetam 500 MG TAB PO SCH (08:19)
[2016-10-27] MEDS: ASPIRIN 81 MG CHEW TAB CHEW SCH (08:20)
[2016-10-27] MEDS: ISOSORBIDE MONONITRATE 30 MG TAB PO SCH (08:20)
[2016-10-27] MEDS: PHENYTOIN SODIUM 100 MG CAP PO SCH (08:20)
[2016-10-27] MEDS: DIGOXIN 0.125 MG TAB PO SCH (08:32)
[2016-10-27] MEDS: INSULIN DETEMIR 100 UNITS/ML VIAL SQ SCH (09:00)
[2016-10-27] MEDS ORDERED: LEVEMIR SQ (09:15)
[2016-10-27] MEDS ORDERED: ISOS30TA3 PO (09:15)
[2016-10-27] MEDS ORDERED: LEVE500 PO (09:15)
[2016-10-27] MEDS ORDERED: QUET1TAB7 PO (09:15)
[2016-10-27] MEDS ORDERED: DILA100C PO (09:15)
[2016-10-27] MEDS ORDERED: ASPI81CH25 CHEW (09:15)
[2016-10-27] MEDS ORDERED: PANT40TA3 PO (09:15)
[2016-10-27] MEDS ORDERED: PLAV75TA29 PO (09:15)
[2016-10-27] MEDS ORDERED: ATOR20TA15 PO (09:15)
[2016-10-27] MEDS ORDERED: ZOLO25TA PO (09:15)
[2016-10-27] MEDS ORDERED: CIPR250T52 PO (09:15)
[2016-10-27] MEDS ORDERED: DIGO0.12 PO (09:15)
[2016-10-27] MEDS ORDERED: LACT PO (09:15)
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
== END 2016-10-27 13:00 | disposition home or self-care (01) | DRG 885 ==
LOC: NEPD 15:16 → NEDA 10-22 00:16 → H250 10-22 01:12
PROVIDERS: ADMIT Psychiatry & Neurology Psychiatry; ATTEND Psychiatry & Neurology Psychiatry
DX: F33.1 Major depressive disorder, recurrent, moderate (principal); E11.65 Type 2 diabetes mellitus with hyperglycemia; Z79.4 Long term (current) use of insulin; I48.91 Unspecified atrial fibrillation; N39.0 Urinary tract infection, site not specified; B95.2 Enterococcus as the cause of diseases classified elsewhere; G31.84 Mild cognitive impairment of uncertain or unknown etiology; I10 Essential (primary) hypertension; E03.9 Hypothyroidism, unspecified; E78.5 Hyperlipidemia, unspecified; G40.909 Epilepsy, unspecified, not intractable, without status epilepticus; Z86.73 Personal history of transient ischemic attack (TIA), and cerebral infarction without residual deficits; H91.90 Unspecified hearing loss, unspecified ear; Z95.810 Presence of automatic (implantable) cardiac defibrillator; Z79.82 Long term (current) use of aspirin; Z79.02 Long term (current) use of antithrombotics/antiplatelets
CPT/HCPCS: 80048; 80053; 80061; 80162; 80185; 80307; 81001; 82948; 83036; 84439; 84443; 85025; 87077; 87086; 87186; 93005; 96372; J1815

== ENCOUNTER 2016-12-27 13:24 | Inpatient (IN) | payer MEDICARE, OTHER ==
[~2016-12-27] VITALS: Ht 149.9 cm; Wt 50.5 kg
[~2016-12-27 13:24] MED LIST changes: +CIPR250T52 PO; -COZA50TA PO; +DILA100C PO; +LACT PO; +LEVE500 PO
[2016-12-27] MEDS ORDERED: SODIUM CHLORIDE 0.9% FLUSH 10 ML FLUSH IV FLUSH PRN (13:30)
[2016-12-27 13:31] VITALS: BP 136/63; PULSE 95; RESP 17; TEMP 98.1; O2SAT 98
[2016-12-27 13:51] LABS: AUTOMATED NEUTROPHIL # 5.9 TH/MM3 (1.8-7.7); BASOPHIL % 0.6 % (0.0-2.0); EOSINOPHIL # 0.1 TH/MM3 (0-0.4); EOSINOPHIL % 1.5 % (0.0-4.0); HEMO FLAGS DIFF FINAL; LYMPH % 20.6 % (9.0-44.0); LYMPHOCYTE # 1.7 TH/MM3 (1.0-4.8); MEAN CELL VOLUME 84.6 FL (80.0-100.0); MEAN CORPUSCULAR HEMOGLOBIN 27.8 PG (27.0-34.0); MEAN CORPUSCULAR HGB CONC 32.9 % (32.0-36.0); MONO % 5.1 % (0.0-8.0); NEUT % 72.2 % (16.0-70.0); PLATELET COUNT 200 TH/MM3 (150-450); RED BLOOD COUNT 4.72 MIL/MM3 (4.00-5.30); RED CELL DISTRIBUTION WIDTH 16.5 % (11.6-17.2); WHITE BLOOD COUNT 8.1 TH/MM3 (4.0-11.0)
--- NOTE | 2016-12-27 13:52 | PD ---
Physical Exam Date Seen by Provider: Dec 27, 2016 Time Seen by Provider: 13:48 Narrative 76-year-old female brought in under the Gonzalez act from the [facility] clinic, as she reportedly has a seizure disorder treated with Keppra. Patient did not have an active seizure. She is sent here as [facility] feels she is not medically appropriate for their facility. Patient was Gonzalez acted due to increased anger issues and dementia. She states no medical problems currently. Patient has no complaints of pain. Patient is allergic to penicillin. Data Data Last Documented VS Vital Signs Date Time Temp Pulse Resp B/P (MAP) Pulse Ox O2 Delivery O2 Flow Rate FiO2 12/27/16 13:31 98.1 95 17 136/63 (87) 98 Orders Orders Complete Blood Count With Diff (12/27/16 13:30) Comprehensive Metabolic Panel (12/27/16 13:30) Prothrombin Time / Inr (Pt) (12/27/16 13:30) Act Partial Throm Time (Ptt) (12/27/16 13:30) Urinalysis - C+S If Indicated (12/27/16 13:30) Iv Access Insert/Monitor (12/27/16 13:30) Ecg Monitoring (12/27/16 13:30) Oximetry (12/27/16 13:30) Sodium Chloride 0.9% Flush (Ns Flush) (12/27/16 13:30) Electrocardiogram (12/27/16 13:30) Chest, Single Ap (12/27/16 13:30) Psych Screen (12/27/16 13:47) Labs Laboratory Tests Test 12/27/16 13:35 12/27/16 14:33 White Blood Count 8.1 TH/MM3 Red Blood Count 4.72 MIL/MM3 Hemoglobin 13.1 GM/DL Hematocrit 40.0 % Mean Corpuscular Volume 84.6 FL Mean Corpuscular Hemoglobin 27.8 PG Mean Corpuscular Hemoglobin Concent 32.9 % Red Cell Distribution Width 16.5 % Platelet Count 200 TH/MM3 Mean Platelet Volume 9.2 FL Neutrophils (%) (Auto) 72.2 % Lymphocytes (%) (Auto) 20.6 % Monocytes (%) (Auto) 5.1 % Eosinophils (%) (Auto) 1.5 % Basophils (%) (Auto) 0.6 % Neutrophils # (Auto) 5.9 TH/MM3 Lymphocytes # (Auto) 1.7 TH/MM3 Monocytes # (Auto) 0.4 TH/MM3 Eosinophils # (Auto) 0.1 TH/MM3 Basophils # (Auto) 0.0 TH/MM3 CBC Comment DIFF FINAL Differential Comment Prothrombin Time 10.6 SEC Prothromb Time International Ratio 1.0 RATIO Activated Partial Thromboplast Time 23.4 SEC Blood Urea Nitrogen 10 MG/DL Creatinine 0.70 MG/DL Random Glucose 261 MG/DL Total Protein 6.6 GM/DL Albumin 3.7 GM/DL Calcium Level 9.1 MG/DL Alkaline Phosphatase 89 U/L Aspartate Amino Transf (AST/SGOT) 17 U/L Alanine Aminotransferase (ALT/SGPT) 20 U/L Total Bilirubin 0.5 MG/DL Sodium Level 139 MEQ/L Potassium Level 3.8 MEQ/L Chloride Level 108 MEQ/L Carbon Dioxide Level 22.3 MEQ/L Anion Gap 9 MEQ/L Estimat Glomerular Filtration Rate 82 ML/MIN Urine Color YELLOW Urine Turbidity CLEAR Urine pH 6.0 Urine Specific [place] 1.027 Urine Protein TRACE mg/dL Urine Glucose (UA) 1000 mg/dL Urine Ketones TRACE mg/dL Urine Occult Blood NEG Urine Nitrite NEG Urine Bilirubin NEG Urine Urobilinogen LESS THAN 2.0 MG/DL Urine Leukocyte Esterase TRACE Urine RBC 1 /hpf Urine WBC 7 /hpf Urine Squamous Epithelial Cells 1 /hpf Urine Mucus FEW /lpf Microscopic Urinalysis Comment CULT NOT INDICATED MDM Medical Record Reviewed: Yes Supervised Visit with DEE DEE: Yes Differential Diagnosis Gonzalez act. Dementia. Mood disorder. Narrative Course Patient appears medically stable at time of exam. Labs ordered including CBC, CMP, x-ray, urinalysis, EKG. CBC is unremarkable. CMP and urinalysis are unremarkable. X-ray is normal. EKG is unremarkable. Patient is medically clear for psychiatric evaluation. Psych evaluation is ordered. Condition: Stable Mauri Tate Dec 27, 2016 13:52
[2016-12-27 14:06] LABS: ALT (GPT) 20 U/L (10-53); ANION GAP 9 MEQ/L (5-15); AST (GOT) 17 U/L (15-37); BICARBONATE 22.3 MEQ/L (21.0-32.0); BLOOD UREA NITROGEN 10 MG/DL (7-18); CHLORIDE 108 MEQ/L (98-107); GLOMERULAR FILTRATION RATE 82 ML/MIN (>89); POTASSIUM 3.8 MEQ/L (3.5-5.1); SODIUM (NA) 139 MEQ/L (136-145)
[2016-12-27 14:09] LABS: ALKALINE PHOSPHATASE 89 U/L (45-117); TOTAL BILIRUBIN ADULT 0.5 MG/DL (0.2-1.0)
[2016-12-27 14:20] LABS: APTT (PATIENT) 23.4 SEC (24.3-30.1); PROTHROMBIN TIME - PATIENT 10.6 SEC (9.8-11.6)
--- NOTE | 2016-12-27 14:38 | RADRPT ---
EXAM DATE/TIME: 12/27/2016 14:10 [facility] COMPARISON: CHEST SINGLE AP, September 05, 2016, 22:28. INDICATIONS : Cough. MEDICAL HISTORY : Dementia. SURGICAL HISTORY : Pacemaker. ENCOUNTER: Initial ACUITY: 1 day PAIN SCORE: Non-responsive. LOCATION: Bilateral chest FINDINGS: A single view of the chest demonstrates the lungs to be symmetrically aerated without evidence of mas s, infiltrate or effusion. Status post CABG. Left-sided defibrillator unchanged. The cardiomediastin al contours are unremarkable. Osseous structures are intact. CONCLUSION: No acute disease. Ramana Ballard MD on December 27, 2016 at 14:36 Board Certified Radiologist. This report was verified electronically.
[2016-12-27 14:46] LABS: BLOOD, URINE NEG (NEG); COMMENT (UR) CULT NOT INDICATED; CULTURE IF INDICATED CULT NOT INDICATED; GLUCOSE,URINE 1000 mg/dL (NEG); KETONE, URINE TRACE mg/dL (NEG); MUCUS URINE FEW /lpf (OCC); NITRITE,URINE NEG (NEG); SQUAMOUS EPITHELIAL CELL URINE 1 /hpf (0-5); URINE COLOR YELLOW (YELLW/STRAW)
--- NOTE | 2016-12-27 14:54 | PD ---
HPI Chief Complaint: Psychiatric Symptoms Time Seen by Provider: 14:51 Travel History International Travel<30 days: No Contact w/Intl Traveler<30days: No Traveled to known affect area: No History of Present Illness HPI 76-year-old female brought in under the Gonzalez act from the [facility] clinic, as she reportedly has a seizure disorder treated with Keppra. Patient did not have an active seizure. She is sent here as [facility] feels she is not medically appropriate for their facility. Patient was Gonzalez acted due to increased anger issues and dementia. She states no medical problems currently. Patient has no complaints of pain. Patient is allergic to penicillin. PFSH Past Medical History Arthritis: No Autoimmune Disease: No Bipolar Disorder: Yes Anxiety: Yes Depression: Yes Heart Rhythm Problems: Yes Cancer: No Cardiovascular Problems: Yes High Cholesterol: Yes Chest Pain: Yes (HX OF HEART ATTACK) Congestive Heart Failure: Yes Cerebrovascular Accident: Yes (2017 ) Dementia: Yes Diabetes: Yes Patient Takes Glucophage: No Diminished Hearing: Yes (NISQUALLY) Endocrine: Yes GERD: Yes Genitourinary: Yes Headaches: No Hypertension: Yes Immune Disorder: No Kidney Stones: Yes Musculoskeletal: Yes Psychiatric: Yes (Adjustment disorder with behavioral disturbances) Reproductive: No Respiratory: No Migraines: No Seizures: Yes (EPILEPSY) Thyroid Disease: Yes (THYROID REMOVED) Tetanus Vaccination: < 5 Years Influenza Vaccination: Yes ?: Not Menopausal: Yes : 5 Para: 4 Miscarriage: 1 Past Surgical History Abdominal Surgery: Yes (UNABLE TO OBTAIN, R LOWER ABDOMEN SCAR) Body Medical Devices: DEFIBRILLATOR Cardiac Surgery: Yes (DEFIBRILLATOR, TRIPLE BYPASS) Cholecystectomy: Yes Hysterectomy: Yes Joint Replacement: Yes (LEFT KNEE) Other Surgery: Yes (TRIPLE BYPASS, DEFIBRILLATOR) Social History Alcohol Use: No Tobacco Use: No Substance Use: No Allergies-Medications (Allergen,Severity, Reaction): Coded Allergies: penicillin G (Unverified Allergy, Severe, Seizures, 12/27/16) Reported Meds & Prescriptions Reported Meds & Active Scripts Active Acidophilus/l-Sporogenes (Lactobacillus Acidophilus) 1 Tab Tab 1 Tab PO Q12HR Digoxin 0.125 Mg Tab 0.125 Mg PO DAILY Metronidazole 500 Mg Tab 500 Mg PO TID 33 Days Quetiapine (Quetiapine Fumarate) 25 Mg Tab 25 Mg PO HS Pantoprazole (Pantoprazole Sodium) 40 Mg Tab 40 Mg PO HS Synthroid (Levothyroxine Sodium) 88 Mcg Tab 88 Mcg PO DAILY@06 Keppra (Levetiracetam) 1,000 Mg Tab 1,000 Mg PO BID Isosorbide Mononitrate ER (Isosorbide Mononitrate) 30 Mg Marisela 30 Mg PO BID Plavix (Clopidogrel Bisulfate) 75 Mg Tab 75 Mg PO DAILY Atorvastatin (Atorvastatin Calcium) 20 Mg Tab 20 Mg PO HS Aspirin Low Strength (Aspirin) 81 Mg Chew 81 Mg CHEW DAILY Reported Valium (Diazepam) 10 Mg Tab 10 Mg PO BID PRN Levemir Inj (Insulin Detemir) 1,000 unit/ 10 ML Vial 14 Units SQ BID Do not mix with any other Insulin. Zoloft (Sertraline HCl) 25 Mg Tab 25 Mg PO DAILY Review of Systems Except as stated in HPI: all other systems reviewed are Neg General / Constitutional: No: Fever Eyes: No: Visual changes HENT: No: Headaches Cardiovascular: No: Chest Pain or Discomfort Respiratory: No: Shortness of Breath Gastrointestinal: No: Abdominal Pain Genitourinary: No: Dysuria Musculoskeletal: No: Pain Skin: No Rash Neurologic: No: Weakness Psychiatric: No: Depression Endocrine: No: Polydipsia Hematologic/Lymphatic: No: Easy Bruising Physical Exam Narrative GENERAL: Patient appears no acute distress. SKIN: Warm and dry. Normal color. Normal turgor. HEAD: Atraumatic. Normocephalic. EYES: Pupils equal and round. No scleral icterus. No injection or drainage. ENT: No nasal bleeding or discharge. Mucous membranes pink and moist. NECK: Trachea midline. Pharynx is clear. Airway is patent. CARDIOVASCULAR: Regular rate and rhythm. RESPIRATORY: No accessory muscle use. Clear to auscultation. Breath sounds equal bilaterally. GASTROINTESTINAL: Abdomen soft, non-tender, nondistended. Hepatic and splenic margins not palpable. Supple nontender. MUSCULOSKELETAL: Extremities without clubbing, cyanosis, or edema. No obvious deformities. NEUROLOGICAL: Awake and alert. No obvious cranial nerve deficits. Motor grossly within normal limits. Five out of 5 muscle strength in the arms and legs. Normal speech. PSYCHIATRIC: Appropriate mood and affect; insight and judgment normal. Data Data Last Documented VS Vital Signs Date Time Temp Pulse Resp B/P (MAP) Pulse Ox O2 Delivery O2 Flow Rate FiO2 12/27/16 13:31 98.1 95 17 136/63 (87) 98 Orders Orders Complete Blood Count With Diff (12/27/16 13:30) Comprehensive Metabolic Panel (12/27/16 13:30) Prothrombin Time / Inr (Pt) (12/27/16 13:30) Act Partial Throm Time (Ptt) (12/27/16 13:30) Urinalysis - C+S If Indicated (12/27/16 13:30) Iv Access Insert/Monitor (12/27/16 13:30) Ecg Monitoring (12/27/16 13:30) Oximetry (12/27/16 13:30) Sodium Chloride 0.9% Flush (Ns Flush) (12/27/16 13:30) Electrocardiogram (12/27/16 13:30) Chest, Single Ap (12/27/16 13:30) Psych Screen (12/27/16 13:47) Labs Laboratory Tests Test 12/27/16 13:35 12/27/16 14:33 White Blood Count 8.1 TH/MM3 Red Blood Count 4.72 MIL/MM3 Hemoglobin 13.1 GM/DL Hematocrit 40.0 % Mean Corpuscular Volume 84.6 FL Mean Corpuscular Hemoglobin 27.8 PG Mean Corpuscular Hemoglobin Concent 32.9 % Red Cell Distribution Width 16.5 % Platelet Count 200 TH/MM3 Mean Platelet Volume 9.2 FL Neutrophils (%) (Auto) 72.2 % Lymphocytes (%) (Auto) 20.6 % Monocytes (%) (Auto) 5.1 % Eosinophils (%) (Auto) 1.5 % Basophils (%) (Auto) 0.6 % Neutrophils # (Auto) 5.9 TH/MM3 Lymphocytes # (Auto) 1.7 TH/MM3 Monocytes # (Auto) 0.4 TH/MM3 Eosinophils # (Auto) 0.1 TH/MM3 Basophils # (Auto) 0.0 TH/MM3 CBC Comment DIFF FINAL Differential Comment Prothrombin Time 10.6 SEC Prothromb Time International Ratio 1.0 RATIO Activated Partial Thromboplast Time 23.4 SEC Blood Urea Nitrogen 10 MG/DL Creatinine 0.70 MG/DL Random Glucose 261 MG/DL Total Protein 6.6 GM/DL Albumin 3.7 GM/DL Calcium Level 9.1 MG/DL Alkaline Phosphatase 89 U/L Aspartate Amino Transf (AST/SGOT) 17 U/L Alanine Aminotransferase (ALT/SGPT) 20 U/L Total Bilirubin 0.5 MG/DL Sodium Level 139 MEQ/L Potassium Level 3.8 MEQ/L Chloride Level 108 MEQ/L Carbon Dioxide Level 22.3 MEQ/L Anion Gap 9 MEQ/L Estimat Glomerular Filtration Rate 82 ML/MIN Urine Color YELLOW Urine Turbidity CLEAR Urine pH 6.0 Urine Specific [place] 1.027 Urine Protein TRACE mg/dL Urine Glucose (UA) 1000 mg/dL Urine Ketones TRACE mg/dL Urine Occult Blood NEG Urine Nitrite NEG Urine Bilirubin NEG Urine Urobilinogen LESS THAN 2.0 MG/DL Urine Leukocyte Esterase TRACE Urine RBC 1 /hpf Urine WBC 7 /hpf Urine Squamous Epithelial Cells 1 /hpf Urine Mucus FEW /lpf Microscopic Urinalysis Comment CULT NOT INDICATED MDM Medical Decision Making Medical Screen Exam Complete: Yes Emergency Medical Condition: Yes Medical Record Reviewed: Yes Differential Diagnosis Gonzalez act. Anger issues. Mood disorder. Dementia. Narrative Course Patient appears medically stable at time of exam. Labs ordered including CBC, CMP, x-ray, urinalysis, EKG. CBC is unremarkable. CMP and urinalysis are unremarkable. X-ray is normal. EKG is unremarkable. Patient is medically clear for psychiatric evaluation. Psych evaluation is ordered. Diagnosis Primary Impression: Medical clearance for psychiatric admission Additional Impression: Aggressive behavior Condition: Stable Mauri Tate Dec 27, 2016 14:54
[2016-12-27 19:45] VITALS: O2SAT 97
[2016-12-27 21:00] VITALS: BP 130/72; PULSE 90; RESP 18; O2SAT 97
[2016-12-28 00:07] VITALS: BP 136/74; PULSE 88; RESP 18; O2SAT 96
[2016-12-28] MEDS ORDERED: ALUMINUM/MAGNESIUM/SIMETH 30 ML CUP PO PRN (03:00)
[2016-12-28] MEDS ORDERED: GLUCAGON 1 MG/ML VIAL OTHER PRN (03:00)
[2016-12-28] MEDS ORDERED: DEXTROSE 50% IN WATER 50 ML VIAL(D50) IV PUSH PRN (03:00)
[2016-12-28] MEDS ORDERED: MAGNESIUM HYDROXIDE SUSP 30 ML CUP PO PRN (03:00)
[2016-12-28] MEDS ORDERED: diphenhydrAMINE HCL 50 MG/ML VIAL IM PRN (03:00)
[2016-12-28] MEDS ORDERED: ACETAMINOPHEN 325 MG TAB PO PRN (03:00)
[2016-12-28 04:25] VITALS: BP 152/70; PULSE 72; RESP 18; TEMP 97.4; O2SAT 100
[2016-12-28] MEDS: LEVOTHYROXINE SODIUM 88 MCG TAB PO SCH (06:00)
[2016-12-28] MEDS: ISOSORBIDE MONONITRATE 30 MG TAB PO SCH ×2 (06:00→17:43)
[2016-12-28] MEDS: INSULIN ASPART SUPPLEMENTAL SCALE SQ SCH ×4 (08:00→21:11)
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
[2016-12-28] MEDS: levETIRAcetam 500 MG TAB PO SCH ×2 (08:16→21:10)
[2016-12-28] MEDS: DIGOXIN 0.125 MG TAB PO SCH (08:16)
[2016-12-28] MEDS: LACTOBACILLUS ACIDOPHILUS TAB PO SCH ×2 (08:17→21:09)
[2016-12-28] MEDS: ASPIRIN 81 MG CHEW TAB CHEW SCH (08:18)
[2016-12-28] MEDS: CLOPIDOGREL 75 MG TAB PO SCH (08:18)
[2016-12-28] MEDS: INSULIN DETEMIR 100 UNITS/ML VIAL SQ SCH ×2 (09:00→21:10)
[2016-12-28] MEDS: NICOTINE 21 MG/24 HR PATCH T-DERMAL SCH (09:00)
[2016-12-28] MEDS ORDERED: SERTRALINE HCL 50 MG TAB PO SCH (09:00)
[2016-12-28] MEDS: metroNIDAZOLE 500 MG TAB PO SCH ×3 (09:00→17:43)
[2016-12-28] MEDS: REMOVE OLD PATCH T-DERMAL SCH (09:00)
[2016-12-28] MEDS: QUEtiapine FUMARATE 25 MG TAB PO SCH ×2 (09:00→21:12)
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
[2016-12-28 18:00] VITALS: BP 144/68; PULSE 71; RESP 18; TEMP 97.3; O2SAT 100
[2016-12-28] MEDS: PANTOPRAZOLE SOD 40 MG DELAYED RELEASE TAB PO SCH (21:09)
[2016-12-28] MEDS: ATORVASTATIN 20 MG TAB PO SCH (21:12)
--- NOTE | 2016-12-28 21:46 | EKG ---
Date Performed: 12/27/2016 Time Performed: 16:45:01 PTAGE: 76 years EKG: Sinus rhythm NONSPECIFIC T-WAVE ABNORMALITY ABNORMAL ECG PREVIOUS TRACING : 10/21/2016 16.13 Compared to prior tracing no significant change DOCTOR: Aurelio Mcadams Interpretating Date/Time 12/28/2016 21:45:34
[2016-12-29 05:49] VITALS: BP 92/54; PULSE 71; RESP 16; TEMP 97.4; O2SAT 95
[2016-12-29] MEDS: LEVOTHYROXINE SODIUM 88 MCG TAB PO SCH (06:05)
[2016-12-29] MEDS: ISOSORBIDE MONONITRATE 30 MG TAB PO SCH ×2 (06:06→08:22)
[2016-12-29 06:51] VITALS: BP 112/56; PULSE 67; O2SAT 100
[2016-12-29] MEDS: INSULIN ASPART SUPPLEMENTAL SCALE SQ SCH ×4 (07:00→21:55)
--- NOTE | 2016-12-29 08:19 | HHI.PYPN ---
Subjective Remarks Patient seen and examined. Chart reviewed. Case discussed with nursing staff. On my examination today, the patient is considerably calmer and in better behavioral control than when I saw her yesterday. I am able to engage the patient in formal mental status testing as detailed below. She remains fairly confused. She does show some mild irritability, but this is transient. Discharge focused but has poor insight and judgement. Denies side effects from medications. No physical complaints. MOCA v7.1 original version: Visuospatial/Executive: 05/16 Namin/3 Attention 04/19 Language: 04/16 Abstraction: 02 Delayed recall: 03/18 Orientation: 08/17 Total: Chief Complaint: Behavioral disturbance Review of Systems ROS Limitations: Poor Historian Except as stated in HPI: all other systems reviewed are Neg Mental Status Examination Appearance: Appropriate Consciousness: Alert Orientation: Person, Place, Date/Time Motor Activity: Other (no abnormal motor movements noted) Speech: Unremarkable, Other (loud, angry) Language: Adequate Attention and Concentration: Easily Distracted Memory: Impaired Mood: Appropriate Affect: Irritable (mild, transient. Generally appropriate.) Thought Process & Associations: Other (Some paucity of thought) Hallucination Type: None Delusion Type: None Suicidal Ideation: No Homicidal Ideation: No Insight: Poor Judgment: Poor Results Labs Labs reviewed. TSH within normal limits. BMP reveals mildly decreased GFR. Hemoglobin A1c pending. Lipid panel reviewed. Awaiting EEG results. Vitals/IOs Vital Signs Date Time Temp Pulse Resp B/P (MAP) Pulse Ox O2 Delivery O2 Flow Rate FiO2 12/29/16 06:51 67 112/56 (74) 100 12/29/16 05:49 97.4 16 12/27/16 19:45 Room Air Intake and Output 12/29/16 12/29/16 12/30/16 08:00 16:00 00:00 Intake Total 240 ml Balance 240 ml Assessment & Plan Problem List: (1) Dementia ICD Codes: F03.90 - Unspecified dementia without behavioral disturbance Status: Acute Assessment & Plan Mental status testing supports diagnosis of dementia, currently with behavioral disturbance. Continue Seroquel as ordered with further adjustments as needed to manage behaviors should they recur or worsen. Hospitalist service delivery consultant input noted and appreciated. Encourage fluids and recheck BMP on Tuesday to trend GFR. Continue to monitor on the geropsychiatric unit. Continue other medications and care as ordered. Justification for Cont. Inpt. High risk for decompensation in less restrictive environment. Impairment in social function. Discharge Planning Placement. Case discussed with counselor. Request HC Surrog/Guard Advoc?: Yes Problem Qualifiers (1) Dementia: Qualified Codes: G30.8 - Other Alzheimer's disease; F02.81 - Dementia in other diseases classified elsewhere with behavioral disturbance Braulio Rooney MD Dec 29, 2016 08:19
[2016-12-29] MEDS: INSULIN DETEMIR 100 UNITS/ML VIAL SQ SCH ×2 (08:21→21:54)
[2016-12-29] MEDS: levETIRAcetam 500 MG TAB PO SCH ×2 (08:22→20:38)
[2016-12-29] MEDS: metroNIDAZOLE 500 MG TAB PO SCH ×2 (08:22→13:05)
[2016-12-29] MEDS: DIGOXIN 0.125 MG TAB PO SCH (08:22)
[2016-12-29] MEDS: CLOPIDOGREL 75 MG TAB PO SCH (08:23)
[2016-12-29] MEDS: ASPIRIN 81 MG CHEW TAB CHEW SCH (08:23)
[2016-12-29] MEDS: QUEtiapine FUMARATE 25 MG TAB PO SCH ×2 (08:24→20:40)
[2016-12-29] MEDS: NICOTINE 21 MG/24 HR PATCH T-DERMAL SCH (08:26)
[2016-12-29] MEDS: LACTOBACILLUS ACIDOPHILUS TAB PO SCH ×2 (08:26→20:39)
[2016-12-29] MEDS: REMOVE OLD PATCH T-DERMAL SCH (08:27)
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
[2016-12-29 12:53] LABS: ANION GAP 7 MEQ/L (5-15); BICARBONATE 26.3 MEQ/L (21.0-32.0); BLOOD UREA NITROGEN 15 MG/DL (7-18); CHLORIDE 105 MEQ/L (98-107); GLOMERULAR FILTRATION RATE 63 ML/MIN (>89); SODIUM (NA) 138 MEQ/L (136-145)
[2016-12-29 12:55] LABS: HDL CHOLESTEROL 55.5 MG/DL (40.0-60.0); LDL CHOLESTEROL 52 MG/DL (0-99)
[2016-12-29 16:18] LABS: HEMOGLOBIN A1a 1.2 %; HEMOGLOBIN A1b 0.9 %; HEMOGLOBIN Ao 80.2 %; HEMOGLOBIN F 1.3 %; HEMOGLOBIN LA1C 2.6 %; HEMOGLOBIN P3 4.2 %
[2016-12-29 18:43] VITALS: BP 89/54; PULSE 69; RESP 16; TEMP 98.6; O2SAT 98
[2016-12-29] MEDS: PANTOPRAZOLE SOD 40 MG DELAYED RELEASE TAB PO SCH (20:39)
[2016-12-29] MEDS: ATORVASTATIN 20 MG TAB PO SCH (20:39)
[2016-12-30] MEDS: ISOSORBIDE MONONITRATE 30 MG TAB PO SCH ×3 (06:21→20:39)
[2016-12-30] MEDS: LEVOTHYROXINE SODIUM 88 MCG TAB PO SCH (06:26)
[2016-12-30 06:44] VITALS: BP 101/53; PULSE 69; RESP 16; TEMP 97.9; O2SAT 99
--- NOTE | 2016-12-30 07:53 | MG ---
cc: SHERRI JUSTICE MD Lab No: Date: 12/28/2016 Age: Sex: F Race: DATE OF [address] Rooney PAST MEDICAL HISTORY 1. Increased anger issues and dementia. 2. Thyroidectomy. 3. Actb-bj-nayrtao. 4. Stroke. 5. Seizures. 6. Pacemaker. 7. Triple bypass. 8. Hypercholesteremia. 9. Heart attack. 10. Irregular heart rate. MEDICATIONS 1. Aspirin. 2. Plavix. 3. Lanoxin. 4. Keppra 5. Imdur. DESCRIPTION The background activity is 9-10 Hz alpha, located posteriorly bilateral and symmetrical superimposed by excess beta activity. Hyperventilation was not performed. Photic stimulation did not elicit a driving response. There were no electrographic seizures or epileptiform discharges noted. The EEG recording is contaminated with excessive movement artifact. INTERPRETATION This is a normal awake EEG. Excess beta activity is a nonspecific finding that may indicate medication adverse effect such as benzos or barbiturates. Absence of electrographic seizures or epileptiform discharges does not exclude a diagnosis of epilepsy, clinical correlation is recommended. Sherri Justice MD RGO/KK /6:28 PM /7:30 AM MTDD
[2016-12-30] MEDS ORDERED: PILL SPLITTER OTHER PRN (08:00)
[2016-12-30] MEDS: INSULIN ASPART SUPPLEMENTAL SCALE SQ SCH ×4 (08:00→20:40)
[2016-12-30] MEDS: QUEtiapine FUMARATE 25 MG TAB PO SCH ×2 (08:37→20:39)
[2016-12-30] MEDS: ASPIRIN 81 MG CHEW TAB CHEW SCH (08:38)
[2016-12-30] MEDS: levETIRAcetam 500 MG TAB PO SCH ×2 (08:39→20:39)
[2016-12-30] MEDS: DIGOXIN 0.125 MG TAB PO SCH (08:39)
[2016-12-30] MEDS: CLOPIDOGREL 75 MG TAB PO SCH (08:39)
[2016-12-30] MEDS: INSULIN DETEMIR 100 UNITS/ML VIAL SQ SCH (08:39)
[2016-12-30] MEDS ORDERED: LACTOBACILLUS ACIDOPHILUS TAB PO SCH (09:00)
--- NOTE | 2016-12-30 10:58 | HHI.PYPN ---
Subjective Chief Complaint: Behavioral disturbance Remarks Patient seen and examined with nurse. Chart reviewed. Case discussed with nursing staff. No behavioral issues noted overnight. On my examination today, the patient reports "I feel better today. Whatever meds are working." We discussed the results of her mental status testing. We discuss her stressors over the last year with her own medical issues and those of her . Patient reports that she slept well last night for the first time in a long time. We perhaps note a little bit of the patient's baseline irascible personality, as reported by her daughter, when patient notes "I don't put up with bullshit. My mother always told me if someone says something nasty to you , say something back." Remains a little confused and repeats material she has shared earlier in the interview and during previous encounters. Denies side effects from medications. No physical complaints. Review of Systems ROS Limitations: Poor Historian Except as stated in HPI: all other systems reviewed are Neg Mental Status Examination Appearance: Appropriate Consciousness: Alert Orientation: Person, Place (at least) Motor Activity: Other (no abnormal motor movements noted) Speech: Unremarkable Language: Adequate Attention and Concentration: Easily Distracted (mild) Memory: Impaired Mood: Appropriate Affect: Appropriate Thought Process & Associations: Other (Some paucity of thought) Hallucination Type: None Delusion Type: None Suicidal Ideation: No (None voiced) Homicidal Ideation: No (None voiced) Insight: Poor Judgment: Poor Results Labs Test 12/29/16 11:14 Blood Urea Nitrogen 15 MG/DL Creatinine 0.87 MG/DL Random Glucose 161 MG/DL Calcium Level 8.5 MG/DL Sodium Level 138 MEQ/L Potassium Level 4.0 MEQ/L Chloride Level 105 MEQ/L Carbon Dioxide Level 26.3 MEQ/L Anion Gap 7 MEQ/L Estimat Glomerular Filtration Rate 63 ML/MIN Hemoglobin A1c 9.2 % Triglycerides Level 68 MG/DL Cholesterol Level 121 MG/DL LDL Cholesterol 52 MG/DL HDL Cholesterol 55.5 MG/DL Cholesterol/HDL Ratio 2.18 RATIO Labs reviewed. EEG read as normal. Vitals/IOs Vital Signs Date Time Temp Pulse Resp B/P (MAP) Pulse Ox O2 Delivery O2 Flow Rate FiO2 12/30/16 06:44 97.9 69 16 101/53 (69) 99 12/27/16 19:45 Room Air Intake and Output 1012/30/16 12/31/16 08:00 16:00 00:00 Intake Total 0 ml Balance 0 ml Assessment & Plan Problem List: (1) Dementia ICD Codes: F03.90 - Unspecified dementia without behavioral disturbance Status: Acute Assessment & Plan Continue Seroquel as ordered. Continue to monitor on the inpatient unit. Hospitalist input noted and appreciated. Follow-up BMP ordered for tomorrow. D /c 1:1. Continue other medications and care as ordered. Justification for Cont. Inpt. Risk for decompensation in less restrictive environment. Discharge Planning Placement. I have left a voicemail for the counselor to discuss her progress in this discharge plan. Request HC Surrog/Guard Advoc?: Yes Problem Qualifiers (1) Dementia: Qualified Codes: G30.8 - Other Alzheimer's disease; F02.81 - Dementia in other diseases classified elsewhere with behavioral disturbance Braulio Rooney MD Dec 30, 2016 10:58
--- NOTE | 2016-12-30 15:34 | HHI.PR ---
Subjective Remarks Follow-up visit HTN, DM 2, seizure disorder. Patient seen and examined today sitting in a chair. Reports she is doing well. Discussed with patient medication adjustment specifically insulin. States that her blood glucose at home has been very well controlled where in she is at 100 220 in the morning. Noted that she has been below 70s for the past 2 days. Denies pain and discomfort. Denies SOB/ dyspnea. Denies chest pain, palpitations, headaches, dizziness. Denies fevers, chills, n/v/d. Denies dysuria. Objective Vitals Vital Signs Date Time Temp Pulse Resp B/P (MAP) Pulse Ox O2 Delivery O2 Flow Rate FiO2 12/30/16 06:44 97.9 69 16 101/53 (69) 99 12/29/16 18:43 98.6 69 16 89/54 (66) 98 I/O 12/29/16 12/29/16 12/29/16 12/30/16 12/30/16 12/30/16 07:00 15:00 23:00 07:00 15:00 23:00 Intake Total 960 ml 960 ml 0 ml Balance 960 ml 960 ml 0 ml Intake Oral 960 ml 960 ml 0 ml # Voids 1 2 1 1 Result Diagram: 12/27/16 1335 12/29/16 1114 Imaging Last Impressions Chest X-Ray 12/27/16 1330 Signed Impressions: Service Date/Time: Tuesday, December 27, 2016 14:10 - CONCLUSION: No acute disease. Ramana Ballard MD Objective Remarks GENERAL: This is a well-nourished, well-developed patient, in no apparent distress. SKIN: Warm and dry. HEAD: Atraumatic. Normocephalic. No temporal or scalp tenderness. EYES: Pupils equal round and reactive. Extraocular motions intact. No scleral icterus. No injection or drainage. ENT: Nose without bleeding. Throat without erythema. Uvula midline. Airway patent. NECK: Trachea midline. CARDIOVASCULAR: Regular rate and rhythm without murmurs, gallops, or rubs. RESPIRATORY: Clear to auscultation. Breath sounds equal bilaterally. No wheezes , rales, or rhonchi. GASTROINTESTINAL: Abdomen soft, non-tender, nondistended. Bowel sounds active 4. MUSCULOSKELETAL: Extremities without clubbing, cyanosis, or edema. NEUROLOGICAL: Awake and alert. Oriented to person, place. Motor and sensory grossly within normal limits. Normal speech. A/P Problem List: (1) Adjustment disorder ICD Code: F43.20 - Adjustment disorder, unspecified Status: Acute (2) HTN (hypertension) ICD Code: I10 - Essential (primary) hypertension Status: Chronic (3) Hypothyroidism ICD Code: E03.9 - Hypothyroidism, unspecified Status: Chronic (4) Seizure disorder ICD Code: G40.909 - Epilepsy, unspecified, not intractable, without status epilepticus Status: Chronic (5) DM type 2 (diabetes mellitus, type 2) ICD Code: E11.9 - Type 2 diabetes mellitus without complications Status: Chronic Assessment and Plan Patient is a 76-year-old female with primary medical history of HTN, SD, seizure disorder, bipolar disorder, anxiety who came into the hospital under Gonzalez act from [facility]. She is now admitted to inpatient psychiatry unit for further evaluation. Consulted for medical management. Adjustment disorder, psychosis Dementia - Managed by psychiatry team HTN, chronic CAD, history of CABG/AICD placement HLD, chronic - Continue home medications atorvastatin 20 mg daily at bedtime, Plavix, isosorbide 30 mg twice a day, aspirin 81 mg daily, digoxin - Monitor BP trend DM 2, with hyperglycemia - Hemoglobin A1c 9.2 - Noted-hypoglycemia in the morning - Continue Levemir 14 units daily, decrease Levemir 10 units daily at bedtime , insulin sliding scale - Monitor Accu-Cheks Seizure disorder, chronic - Continue Keppra - Seizure precaution - EEG within normal Hypothyroidism - Continue levothyroxin - TSH within normal Patient has history of C. difficile but has completed Flagyl antibiotic prior - DC restarting Flagyl if patient does not have any diarrhea - Decrease acidophilus daily, DC tomorrow DVT prop patient is ambulatory Discussed with patient, nursing, Dr. Cueto Problem Qualifiers (1) Adjustment disorder: Qualified Codes: F43.25 - Adjustment disorder with mixed disturbance of emotions and conduct Diana Melgar Dec 30, 2016 15:34
--- NOTE | 2016-12-30 15:36 | PD.TTN ---
Patient Problems 1. Discharge planning 2. Medication compliance 3. Knowledge deficit 4. Lack of coping skills Progress Toward Goals Provider Present: Dr. Fidelina Rooney Provider Input: 12/28/16 pt is in need of placement Psychiatric Counselors Present: Ronel Pretty LCSW Psych Therapist Input: 12/28/16 pt has limited income and cannot go to [facility] will work on NH placement Occupational Therapist Input: 12/28/16needs to assess just got here Ronel Pretty LCSW Dec 30, 2016 15:36
[2016-12-30 18:11] VITALS: BP 110/54; PULSE 75; RESP 18; TEMP 97.6; O2SAT 98
[2016-12-30] MEDS: PANTOPRAZOLE SOD 40 MG DELAYED RELEASE TAB PO SCH (20:39)
[2016-12-30] MEDS: ATORVASTATIN 20 MG TAB PO SCH (20:39)
[2016-12-30] MEDS: diphenhydrAMINE HCL 25 MG CAP PO PRN (20:39)
[2016-12-30] MEDS ORDERED: INSULIN DETEMIR 100 UNITS/ML VIAL SQ SCH ×2 (21:00)
[2016-12-31] MEDS: LEVOTHYROXINE SODIUM 88 MCG TAB PO SCH (05:28)
[2016-12-31 06:58] VITALS: BP 102/49; PULSE 58; RESP 17; TEMP 97.2; O2SAT 96
[2016-12-31] MEDS: INSULIN ASPART SUPPLEMENTAL SCALE SQ SCH ×4 (08:00→20:52)
[2016-12-31] MEDS: INSULIN DETEMIR 100 UNITS/ML VIAL SQ SCH ×2 (09:00→15:05)
[2016-12-31] MEDS: ISOSORBIDE MONONITRATE 30 MG TAB PO SCH ×2 (10:10→20:49)
[2016-12-31] MEDS: DIGOXIN 0.125 MG TAB PO SCH (10:11)
[2016-12-31] MEDS: ASPIRIN 81 MG CHEW TAB CHEW SCH (10:11)
[2016-12-31] MEDS: QUEtiapine FUMARATE 25 MG TAB PO SCH ×3 (10:13→20:49)
[2016-12-31] MEDS: CLOPIDOGREL 75 MG TAB PO SCH (10:14)
[2016-12-31] MEDS: levETIRAcetam 500 MG TAB PO SCH ×2 (10:14→20:49)
[2016-12-31 10:45] LABS: BICARBONATE 25.7 MEQ/L (21.0-32.0); POTASSIUM 4.1 MEQ/L (3.5-5.1)
--- NOTE | 2016-12-31 13:35 | HHI.PYPN ---
Subjective Chief Complaint: Behavioral disturbance Remarks Patient seen and examined in day room. Chart reviewed. Case discussed with nursing staff. Hospitalist has added insulin and per nursing staff, blood glucose was low this morning and so insulin was held. I have asked nurse to inform hospitalist of this in case insulin dose needs to be adjusted. On my examination today, the patient is somewhat irritable. She is discharge focused and says that she has to get home to her , who is ill. She has poor insight into the disruptiveness of the alleged behavioral disturbance that led to her admission here. She becomes increasingly agitated when I discuss the need for placement and uses some profanity but is able to calm herself after a time. She reports that she is sleeping and eating well. Remains somewhat confused. She denies side effects from medications. No physical complaints. Review of Systems ROS Limitations: Poor Historian Except as stated in HPI: all other systems reviewed are Neg Mental Status Examination Appearance: Appropriate Consciousness: Alert Orientation: Person, Place Motor Activity: Other (no motor abnormalities noted) Speech: Other (somewhat terse and angry) Language: Adequate Attention and Concentration: Easily Distracted (mild) Memory: Impaired Mood: Irritable Affect: Other (consistent with stated mood) Thought Process & Associations: Other (perseverative on discharge) Hallucination Type: None Delusion Type: None Suicidal Ideation: No Homicidal Ideation: No Insight: Poor Judgment: Poor Results Labs Test 12/31/16 07:57 Blood Urea Nitrogen 15 MG/DL Creatinine 0.70 MG/DL Random Glucose 51 MG/DL Calcium Level 9.5 MG/DL Sodium Level 140 MEQ/L Potassium Level 4.1 MEQ/L Chloride Level 107 MEQ/L Carbon Dioxide Level 25.7 MEQ/L Anion Gap 7 MEQ/L Estimat Glomerular Filtration Rate 82 ML/MIN Labs reviewed. GFR improved. Bedside glucoses reviewed. Glucose from this morning has not yet been recorded but nursing staff told me it was in the 40s. Vitals/IOs Vital Signs Date Time Temp Pulse Resp B/P (MAP) Pulse Ox O2 Delivery O2 Flow Rate FiO2 12/31/16 06:58 97.2 58 17 102/49 (66) 96 12/27/16 19:45 Room Air Intake and Output 12/31/16 12/31/16 01/01/17 08:00 16:00 00:00 Intake Total 720 ml Balance 720 ml Assessment & Plan Problem List: (1) Dementia ICD Codes: F03.90 - Unspecified dementia without behavioral disturbance Status: Acute Assessment & Plan Some ongoing irritability; I will titrate Seroquel to 12.5 mg morning and afternoon and 25 mg at bedtime. Hospitalist follow-up noted and appreciated. Nurse to reach out the hospitalist regarding glucose/insulin dosing. Continue to monitor on the inpatient unit. Continue other medications and care as ordered. Justification for Cont. Inpt. Med changes. High risk for decompensation in less restrictive environment. Discharge Planning Case discussed with counselor who reports that the patient will require a PASRR level II before she can be placed, and this will require through the weekend at least to complete Request HC Surrog/Guard Advoc?: Yes Problem Qualifiers (1) Dementia: Qualified Codes: G30.8 - Other Alzheimer's disease; F02.81 - Dementia in other diseases classified elsewhere with behavioral disturbance Braulio Rooney MD Dec 31, 2016 13:35
--- NOTE | 2016-12-31 15:09 | HHI.PR ---
Subjective Remarks Follow-up visit HTN, DM 2, seizure disorder. Patient seen and examined today. Patient is very upset. States that her daughter is trying to keep her in the unit. States that her is dying and she wants to see him before he does this. Discussed with patient results of blood glucose this morning. Discussed plan of holding her Levemir tonight. States that she usually takes Levemir in the morning and at night. Denies pain and discomfort. Denies SOB/ dyspnea. Denies chest pain, palpitations, headaches, dizziness. Denies fevers, chills, n/ v/d. Denies dysuria. As per RN, Levemir was not given this morning but patient was covered using the sliding scale. Objective Vitals Vital Signs Date Time Temp Pulse Resp B/P (MAP) Pulse Ox O2 Delivery O2 Flow Rate FiO2 12/31/16 06:58 97.2 58 17 102/49 (66) 96 12/30/16 18:11 97.6 75 18 110/54 (72) 98 I/O 12/30/16 12/30/16 12/30/16 12/31/16 12/31/16 12/31/16 07:00 15:00 23:00 07:00 15:00 23:00 Intake Total 0 ml 1060 ml 720 ml Balance 0 ml 1060 ml 720 ml Intake Oral 0 ml 1060 ml 720 ml # Voids 1 1 Result Diagram: 12/27/16 1335 12/31/16 0757 Imaging Last Impressions Chest X-Ray 12/27/16 1330 Signed Impressions: Service Date/Time: Tuesday, December 27, 2016 14:10 - CONCLUSION: No acute disease. Ramana Ballard MD Objective Remarks GENERAL: This is a well-nourished, well-developed patient, in no apparent distress. SKIN: Warm and dry. HEAD: Atraumatic. Normocephalic. No temporal or scalp tenderness. EYES: Pupils equal round and reactive. Extraocular motions intact. No scleral icterus. No injection or drainage. ENT: Nose without bleeding. Throat without erythema. Uvula midline. Airway patent. NECK: Trachea midline. CARDIOVASCULAR: Regular rate and rhythm without murmurs, gallops, or rubs. RESPIRATORY: Clear to auscultation. Breath sounds equal bilaterally. No wheezes , rales, or rhonchi. GASTROINTESTINAL: Abdomen soft, non-tender, nondistended. Bowel sounds active 4. MUSCULOSKELETAL: Extremities without clubbing, cyanosis, or edema. NEUROLOGICAL: Awake and alert. Oriented to person, place. Motor and sensory grossly within normal limits. Normal speech. A/P Problem List: (1) Adjustment disorder ICD Code: F43.20 - Adjustment disorder, unspecified Status: Acute (2) HTN (hypertension) ICD Code: I10 - Essential (primary) hypertension Status: Chronic (3) Hypothyroidism ICD Code: E03.9 - Hypothyroidism, unspecified Status: Chronic (4) Seizure disorder ICD Code: G40.909 - Epilepsy, unspecified, not intractable, without status epilepticus Status: Chronic (5) DM type 2 (diabetes mellitus, type 2) ICD Code: E11.9 - Type 2 diabetes mellitus without complications Status: Chronic Assessment and Plan Patient is a 76-year-old female with primary medical history of HTN, OR, seizure disorder, bipolar disorder, anxiety who came into the hospital under Gonzalez act from [facility]. She is now admitted to inpatient psychiatry unit for further evaluation. Consulted for medical management. Adjustment disorder, psychosis Dementia - Managed by psychiatry team HTN, chronic CAD, history of CABG/AICD placement HLD, chronic - Continue home medications atorvastatin 20 mg daily at bedtime, Plavix, isosorbide 30 mg twice a day, aspirin 81 mg daily, digoxin - Monitor BP trend DM 2, with hyperglycemia - Hemoglobin A1c 9.2 - Noted-hypoglycemia in the morning 49 - Continue Levemir 14 units daily, hold Levemir tonight. - RN held Levemir in the morning.Discussed with RN to give the Levemir now and we will hold off on the Levemir tonight. - Monitor Accu-Cheks Seizure disorder, chronic - Continue Keppra - Seizure precaution - EEG within normal Hypothyroidism - Continue levothyroxin - TSH within normal Patient has history of C. difficile but has completed Flagyl antibiotic prior - DC restarting Flagyl if patient does not have any diarrhea - Decrease acidophilus daily, DC tomorrow DVT prop patient is ambulatory Discussed with patient, nursing, Dr. Cueto Problem Qualifiers (1) Adjustment disorder: Qualified Codes: F43.25 - Adjustment disorder with mixed disturbance of emotions and conduct Diana Melgar Dec 31, 2016 15:09
[2016-12-31 20:19] VITALS: BP 122/55; PULSE 84; RESP 17; TEMP 97.3; O2SAT 98
[2016-12-31] MEDS: ATORVASTATIN 20 MG TAB PO SCH (20:49)
[2016-12-31] MEDS: PANTOPRAZOLE SOD 40 MG DELAYED RELEASE TAB PO SCH (20:49)
[2016-12-31] MEDS ORDERED: INSULIN DETEMIR 100 UNITS/ML VIAL SQ SCH (21:00)
[2017-01-01] MEDS: LEVOTHYROXINE SODIUM 88 MCG TAB PO SCH (06:32)
[2017-01-01 06:42] VITALS: BP 116/62; PULSE 93; RESP 15; TEMP 97.9; O2SAT 96
[2017-01-01] MEDS: INSULIN ASPART SUPPLEMENTAL SCALE SQ SCH ×4 (08:00→20:36)
[2017-01-01] MEDS: INSULIN DETEMIR 100 UNITS/ML VIAL SQ SCH (09:09)
[2017-01-01] MEDS: CLOPIDOGREL 75 MG TAB PO SCH (09:18)
[2017-01-01] MEDS: ASPIRIN 81 MG CHEW TAB CHEW SCH (09:18)
[2017-01-01] MEDS: levETIRAcetam 500 MG TAB PO SCH ×2 (09:18→20:35)
[2017-01-01] MEDS: QUEtiapine FUMARATE 25 MG TAB PO SCH ×3 (09:20→20:35)
[2017-01-01] MEDS: DIGOXIN 0.125 MG TAB PO SCH (09:21)
--- NOTE | 2017-01-01 12:20 | HHI.PYPN ---
Subjective Chief Complaint: Behavioral disturbance Remarks Pt seen and discussed with staff. Chart reviewed. Pt has been compliant with treatment and care. No aggressive behaviors. She has been participating in milieu activities. She remains confused and depressed. She states that she is sleeping better since admission. Insight into illness is poor. Mental Status Examination Appearance: Appropriate Consciousness: Alert Orientation: Person, Place Motor Activity: Other (no motor abnormalities noted) Speech: Other (somewhat terse and angry) Language: Adequate Attention and Concentration: Easily Distracted (mild) Memory: Impaired Mood: Sad Affect: Sad Thought Process & Associations: Linear Thought Content: Appropriate Hallucination Type: None Delusion Type: None Suicidal Ideation: No Suicidal Plan: No Suicidal Intention: No Homicidal Ideation: No Homicidal Plan: No Homicidal Intention: No Insight: Poor Judgment: Poor Results Vitals/IOs Vital Signs Date Time Temp Pulse Resp B/P (MAP) Pulse Ox O2 Delivery O2 Flow Rate FiO2 01/01/17 06:42 97.9 93 15 116/62 (80) 96 Intake and Output 01/01/17 01/01/17 01/02/17 08:00 16:00 00:00 Intake Total 360 ml Balance 360 ml Assessment & Plan Problem List: (1) Dementia ICD Codes: F03.90 - Unspecified dementia without behavioral disturbance Status: Acute Assessment & Plan continue current tx plan. Estimated LOS: days Justification for Cont. Inpt. risk of decompensation Request HC Surrog/Guard Advoc?: Yes Problem Qualifiers (1) Dementia: Qualified Codes: G30.8 - Other Alzheimer's disease; F02.81 - Dementia in other diseases classified elsewhere with behavioral disturbance Jazmine Barnes MD Jan 01, 2017 12:20
[2017-01-01 16:00] VITALS: BP 125/59; PULSE 73; RESP 18; TEMP 97.5; O2SAT 99
[2017-01-01] MEDS: PANTOPRAZOLE SOD 40 MG DELAYED RELEASE TAB PO SCH (20:35)
[2017-01-01] MEDS: ATORVASTATIN 20 MG TAB PO SCH (20:35)
[2017-01-01] MEDS: ISOSORBIDE MONONITRATE 30 MG TAB PO SCH (20:35)
[2017-01-01] MEDS: diphenhydrAMINE HCL 25 MG CAP PO PRN (20:36)
[2017-01-02 06:00] VITALS: BP 103/51; PULSE 62; RESP 16; TEMP 97.7; O2SAT 98
[2017-01-02] MEDS: ISOSORBIDE MONONITRATE 30 MG TAB PO SCH ×2 (06:11→18:48)
[2017-01-02] MEDS: LEVOTHYROXINE SODIUM 88 MCG TAB PO SCH (06:11)
[2017-01-02] MEDS: INSULIN ASPART SUPPLEMENTAL SCALE SQ SCH ×4 (07:47→20:56)
--- NOTE | 2017-01-02 09:23 | HHI.PR ---
Subjective Remarks Follow-up visit HTN, DM 2, seizure disorder. Patient seen and examined today. Patient is very upset. States that her daughter is trying to keep her in the unit. States that her is dying and she wants to see him before he does this. Discussed with patient results of blood glucose this morning. Discussed plan of holding her Levemir tonight. States that she usually takes Levemir in the morning and at night. Denies pain and discomfort. Denies SOB/ dyspnea. Denies chest pain, palpitations, headaches, dizziness. Denies fevers, chills, n/ v/d. Denies dysuria. As per RN, Levemir was not given this morning but patient was covered using the sliding scale. 01-02 LEVEMIR REDUCE TO ONCE DAILY NO NEW COMPLAINTS AWAITS HER TRIAL FOR COURT We'll sign off Objective Vitals Vital Signs Date Time Temp Pulse Resp B/P (MAP) Pulse Ox O2 Delivery O2 Flow Rate FiO2 01/02/17 06:00 97.7 62 16 103/51 (68) 98 01/01/17 16:00 97.5 73 18 125/59 (81) 99 I/O 01/01/17 01/01/17 01/01/17 01/02/17 01/02/17 01/02/17 07:00 15:00 23:00 07:00 15:00 23:00 Intake Total 0 ml 480 ml 1205 ml Balance 0 ml 480 ml 1205 ml Intake Oral 0 ml 480 ml 1205 ml # Voids 2 1 1 # Bowel Movements 0 Result Diagram: 12/31/16 0757 Other Results Laboratory Tests Test 12/31/16 07:57 Blood Urea Nitrogen 15 MG/DL Creatinine 0.70 MG/DL Random Glucose 51 MG/DL Calcium Level 9.5 MG/DL Sodium Level 140 MEQ/L Potassium Level 4.1 MEQ/L Chloride Level 107 MEQ/L Carbon Dioxide Level 25.7 MEQ/L Anion Gap 7 MEQ/L Estimat Glomerular Filtration Rate 82 ML/MIN Imaging Last Impressions Chest X-Ray 12/27/16 1330 Signed Impressions: Service Date/Time: Tuesday, December 27, 2016 14:10 - CONCLUSION: No acute disease. Ramana Ballard MD Objective Remarks GENERAL: Awake and alert no complaints SKIN: Warm and dry. HEAD: Atraumatic. Normocephalic. EYES: Pupils equal and round. No scleral icterus. No injection or drainage. Extraocular muscles intact ENT: No nasal bleeding or discharge. Mucous membranes pink and moist. Tongue is midline NECK: Trachea midline. No JVD. Supple CARDIOVASCULAR: Regular rate and rhythm. S1-S2 no S3 or S4 RESPIRATORY: No accessory muscle use. Clear to auscultation. Breath sounds equal bilaterally. GASTROINTESTINAL: Abdomen soft, non-tender, nondistended. Hepatic and splenic margins not palpable. MUSCULOSKELETAL: Extremities without clubbing, cyanosis, or edema. No obvious deformities. NEUROLOGICAL: Awake and alert. No obvious cranial nerve deficits. Motor grossly within normal limits. 4 out of 5 muscle strength in the arms and legs. Normal speech. PSYCHIATRIC: INAppropriate mood and affect; insight and judgment ABnormal. Medications and IVs Current Medications Sodium Chloride (NS Flush) 2 ml UNSCH PRN IV FLUSH FLUSH AFTER USING IV ACCESS ; Start 12/27/16 at 13:30 Aspirin (Aspirin Chew) 81 mg DAILY CHEW Last administered on 01/01/17 09:18; Start 12/28/16 at 09:00 Atorvastatin Calcium (Lipitor) 20 mg HS PO Last administered on 01/01/17 20: 35; Start 12/28/16 at 21:00 Clopidogrel Bisulfate (Plavix) 75 mg DAILY PO Last administered on 01/01/17 09:18; Start 12/28/16 at 09:00 Digoxin (Lanoxin) 0.125 mg DAILY PO Last administered on 01/01/17 09:21; Start 12/28/16 at 09:00 Insulin Detemir (Levemir Inj) 14 units BID SQ Last administered on 12/30/16 08:39; Start 12/28/16 at 09:00; Stop 12/30/16 at 14:52; Status DC Isosorbide Mononitrate (Imdur) 30 mg Q12H PO Last administered on 01/02/17 06 :11; Start 12/28/16 at 07:00 Lactobacillus Acidophilus (Lactinex) 1 tab Q12HR PO Last administered on 20:39; Start 12/28/16 at 09:00; Stop 12/30/16 at 07:48; Status DC Levetriacetam (Keppra) 1,000 mg BID PO Last administered on 01/01/17 20:35; Start 12/28/16 at 09:00 Levothyroxine Sodium (Synthroid) 88 mcg DAILY@0700 PO Last administered on 06:11; Start 12/28/16 at 07:00; Status Future hold Metronidazole (Flagyl) 500 mg TID PO Last administered on 12/29/16 13:05; Start 12/28/16 at 09:00; Stop 12/29/16 at 13:16; Status DC Pantoprazole Sodium (Protonix) 40 mg HS PO Last administered on 01/01/17 20: 35; Start 12/28/16 at 21:00 Quetiapine Fumarate (SEROquel) 25 mg HS PO Last administered on 01/01/17 20: 35; Start 12/28/16 at 21:00 Sertraline HCl (Zoloft) 25 mg DAILY PO ; Start 12/28/16 at 09:00; Stop at 09:00; Status DC Dextrose (D50w (Vial) Inj) 50 ml UNSCH PRN IV PUSH HYPOGLYCEMIA-SEE COMMENTS; Start 12/28/16 at 03:00 Glucagon (Glucagon Inj) 1 mg UNSCH PRN OTHER HYPOGLYCEMIA-SEE COMMENTS; Start 12/28/16 at 03:00 Insulin Aspart (NovoLOG SUPPLEMENTAL SCALE) 1 ACHS SLIDING SCALE SQ Last administered on 01/01/17 20:36; Start 12/28/16 at 08:00 Diphenhydramine HCl (Benadryl) 25 mg Q6H PRN PO For mild anxiety and/or EPS Last administered on 01/01/17 20:36; Start 12/28/16 at 03:00 Diphenhydramine HCl (Benadryl Inj) 25 mg Q6H PRN IM For mild anxiety and/or EPS ; Start 12/28/16 at 03:00 Acetaminophen (Tylenol) 650 mg Q4H PRN PO Pain 1-5 or Temp >101F; Start at 03:00 Magnesium Hydroxide (Milk Of Magnesia Liq) 30 ml DAILY PRN PO CONSTIPATION; Start 12/28/16 at 03:00 Al Hydrox/Mg Hydrox/Simethicone (Mag-Al Plus Susp Liq) 30 ml Q6H PRN PO DYSPEPSIA; Start 12/28/16 at 03:00 Nicotine (Habitrol 21 Mg Patch.24 Hr) 1 patch DAILY T-DERMAL ; Start 12/28/16 at 09:00; Stop 12/29/16 at 16:24; Status DC Miscellaneous Information 1 DAILY T-DERMAL ; Start 12/28/16 at 09:00; Stop at 16:24; Status DC Quetiapine Fumarate (SEROquel) 12.5 mg DAILY PO Last administered on 10:13; Start 12/28/16 at 09:00; Stop 12/31/16 at 14:06; Status DC Lactobacillus Acidophilus (Lactinex) 1 tab DAILY PO Last administered on 08:39; Start 12/30/16 at 09:00; Stop 12/31/16 at 07:35; Status DC Miscellaneous (Pill Splitter) 1 ea UNSCH PRN OTHER SEE LABEL COMMENTS; Start 12/30/16 at 08:00 Insulin Detemir (Levemir Inj) 14 units DAILY SQ Last administered on 09:09; Start 12/31/16 at 09:00 Insulin Detemir (Levemir Inj) 8 units HS SQ ; Start 12/30/16 at 21:00; Stop at 21:00; Status DC Insulin Detemir (Levemir Inj) 10 units HS SQ Last administered on 12/30/16 20 :43; Start 12/30/16 at 21:00; Stop 12/31/16 at 10:07; Status DC Insulin Detemir (Levemir Inj) 5 units HS SQ ; Start 12/31/16 at 21:00; Stop at 21:00; Status DC Quetiapine Fumarate (SEROquel) 12.5 mg BID@0900,1500 PO Last administered on 15:37; Start 12/31/16 at 15:00 A/P Problem List: (1) Adjustment disorder ICD Code: F43.20 - Adjustment disorder, unspecified Status: Acute (2) HTN (hypertension) ICD Code: I10 - Essential (primary) hypertension Status: Chronic (3) Hypothyroidism ICD Code: E03.9 - Hypothyroidism, unspecified Status: Chronic (4) Seizure disorder ICD Code: G40.909 - Epilepsy, unspecified, not intractable, without status epilepticus Status: Chronic (5) DM type 2 (diabetes mellitus, type 2) ICD Code: E11.9 - Type 2 diabetes mellitus without complications Status: Chronic Assessment and Plan Patient is a 76-year-old female with primary medical history of HTN, [place], seizure disorder, bipolar disorder, anxiety who came into the hospital under Gonzalez act from [facility]. She is now admitted to inpatient psychiatry unit for further evaluation. Consulted for medical management. Adjustment disorder, psychosis Dementia - Managed by psychiatry team HTN, chronic CAD, history of CABG/AICD placement HLD, chronic - Continue home medications atorvastatin 20 mg daily at bedtime, Plavix 75MG , isosorbide 30 mg twice a day, aspirin 81 mg daily, digoxin - Monitor BP trend DM 2, with hyperglycemia - Hemoglobin A1c 9.2 - Noted-hypoglycemia in the morning 49 - Continue Levemir 14 units daily, hold Levemir tonight. - RN held Levemir in the morning.Discussed with RN to give the Levemir now and we will hold off on the Levemir tonight. - Monitor Accu-Cheks Seizure disorder, chronic - Continue Keppra - Seizure precaution - EEG within normal Hypothyroidism - Continue levothyroxine - TSH within normal Patient has history of C. difficile but has completed Flagyl antibiotic prior - DC restarting Flagyl if patient does not have any diarrhea - Decrease acidophilus daily, DC tomorrow DVT prop patient is ambulatory Discharge Planning We'll sign off Reconsult if needed Problem Qualifiers (1) Adjustment disorder: Qualified Codes: F43.25 - Adjustment disorder with mixed disturbance of emotions and conduct Mitesh Echevarria DO Jan 02, 2017 09:23
[2017-01-02] MEDS: ASPIRIN 81 MG CHEW TAB CHEW SCH (09:40)
[2017-01-02] MEDS: INSULIN DETEMIR 100 UNITS/ML VIAL SQ SCH (09:40)
[2017-01-02] MEDS: DIGOXIN 0.125 MG TAB PO SCH (09:40)
[2017-01-02] MEDS: QUEtiapine FUMARATE 25 MG TAB PO SCH ×3 (09:44→20:55)
[2017-01-02] MEDS: levETIRAcetam 500 MG TAB PO SCH ×2 (09:44→20:54)
[2017-01-02] MEDS: CLOPIDOGREL 75 MG TAB PO SCH (09:44)
--- NOTE | 2017-01-02 12:43 | HHI.PYPN ---
Subjective Chief Complaint: Behavioral disturbance Remarks Pt seen and discussed with staff. No behavioral problems on unit. She has been out in milieu but has been withdrawn. She continues to express anger at family for hospitalization. No SI/HI Mental Status Examination Appearance: Appropriate Consciousness: Alert Orientation: Person, Place Motor Activity: Other (no motor abnormalities noted) Speech: Other (somewhat terse and angry) Language: Adequate Attention and Concentration: Easily Distracted (mild) Memory: Impaired Mood: Sad Affect: Sad Thought Process & Associations: Linear Thought Content: Appropriate Hallucination Type: None Delusion Type: None Suicidal Ideation: No Suicidal Plan: No Suicidal Intention: No Homicidal Ideation: No Homicidal Plan: No Homicidal Intention: No Insight: Poor Judgment: Poor Results Vitals/IOs Vital Signs Date Time Temp Pulse Resp B/P (MAP) Pulse Ox O2 Delivery O2 Flow Rate FiO2 01/02/17 06:00 97.7 62 16 103/51 (68) 98 Intake and Output 01/02/17 01/02/17 01/02/17 07:59 15:59 23:59 Intake Total 240 ml 240 ml Balance 240 ml 240 ml Assessment & Plan Problem List: (1) Dementia ICD Codes: F03.90 - Unspecified dementia without behavioral disturbance Status: Acute Assessment & Plan Continue current tx plan. Estimated LOS: days Justification for Cont. Inpt. risk of decompensation Request HC Surrog/Guard Advoc?: Yes Problem Qualifiers (1) Dementia: Qualified Codes: G30.8 - Other Alzheimer's disease; F02.81 - Dementia in other diseases classified elsewhere with behavioral disturbance Jazmine Barnes MD Jan 02, 2017 12:43
[2017-01-02 17:30] VITALS: BP 122/59; PULSE 67; RESP 16; TEMP 97.2
[2017-01-02] MEDS: ATORVASTATIN 20 MG TAB PO SCH (20:54)
[2017-01-02] MEDS: PANTOPRAZOLE SOD 40 MG DELAYED RELEASE TAB PO SCH (20:55)
[2017-01-02 21:00] VITALS: BP 156/67; PULSE 81; RESP 18; TEMP 97.8; O2SAT 100
[2017-01-03 06:01] VITALS: BP 119/56; PULSE 63; RESP 15; TEMP 98.2; O2SAT 96
[2017-01-03] MEDS: ISOSORBIDE MONONITRATE 30 MG TAB PO SCH ×2 (06:08→17:53)
[2017-01-03] MEDS: LEVOTHYROXINE SODIUM 88 MCG TAB PO SCH (06:08)
[2017-01-03] MEDS: INSULIN ASPART SUPPLEMENTAL SCALE SQ SCH ×4 (08:00→21:58)
[2017-01-03] MEDS: INSULIN DETEMIR 100 UNITS/ML VIAL SQ SCH (09:00)
[2017-01-03] MEDS: levETIRAcetam 500 MG TAB PO SCH ×2 (09:13→20:49)
[2017-01-03] MEDS: DIGOXIN 0.125 MG TAB PO SCH (09:13)
[2017-01-03] MEDS: QUEtiapine FUMARATE 25 MG TAB PO SCH ×3 (09:14→20:50)
[2017-01-03] MEDS: CLOPIDOGREL 75 MG TAB PO SCH (09:14)
[2017-01-03] MEDS: ASPIRIN 81 MG CHEW TAB CHEW SCH (09:14)
--- NOTE | 2017-01-03 10:48 | HHI.PYPN ---
Subjective Chief Complaint: Behavioral disturbance Remarks Patient seen and examined. Chart reviewed. Case discussed with nursing staff reports the patient has been somewhat somatic and dramatic but otherwise no real behavioral problem. On my examination today, the patient is calm. She remains a little discharge focused and remains perseverative on returning home to . She remains angry at her daughter and says, "I don't think she likes me. It's been like that for years." Feels like Seroquel is helping to lift her mood. Denies side effects from medications. Has just remembered that she uses CPAP at home and is requesting that this be resumed in the hospital. I have placed in order to have PAP device brought in from home. Review of Systems ROS Limitations: Poor Historian Except as stated in HPI: all other systems reviewed are Neg Mental Status Examination Appearance: Appropriate Consciousness: Alert Orientation: Person, Place Motor Activity: Other (no hand tremor, no dystonia, no dyskinesia noted) Speech: Unremarkable Language: Adequate Attention and Concentration: Easily Distracted (mild) Memory: Impaired Mood: Appropriate Affect: Appropriate Thought Process & Associations: Linear, Other (somewhat perseverative) Thought Content: Appropriate Hallucination Type: None Delusion Type: None Suicidal Ideation: No Suicidal Plan: No Suicidal Intention: No Homicidal Ideation: No Homicidal Plan: No Homicidal Intention: No Insight: Poor Judgment: Poor Results Labs Labs reviewed. No new labs. Vitals/IOs Vital Signs Date Time Temp Pulse Resp B/P (MAP) Pulse Ox O2 Delivery O2 Flow Rate FiO2 01/03/17 06:01 98.2 63 15 119/56 (77) 96 Intake and Output 01/03/17 01/03/17 01/04/17 08:00 16:00 00:00 Intake Total 240 ml Balance 240 ml Assessment & Plan Problem List: (1) Dementia ICD Codes: F03.90 - Unspecified dementia without behavioral disturbance Status: Acute Assessment & Plan Continue Seroquel 12.5/12.5/25 mg for management of behaviors in the setting of her dementia. Continue to monitor on the geropsychiatric unit. Continue other medications and care as ordered. Justification for Cont. Inpt. Risk for decompensation in less restrictive environment. Discharge Planning Placement. Case discussed with counselor who reports that we are still waiting on the [facility] level II to allow for SNF placement. Request HC Surrog/Guard Advoc?: Yes Problem Qualifiers (1) Dementia: Qualified Codes: G30.8 - Other Alzheimer's disease; F02.81 - Dementia in other diseases classified elsewhere with behavioral disturbance Braulio Rooney MD Jan 03, 2017 10:48
[2017-01-03 18:34] VITALS: BP 117/57; PULSE 91; RESP 17; TEMP 97.4
[2017-01-03] MEDS: ATORVASTATIN 20 MG TAB PO SCH (20:50)
[2017-01-03] MEDS: PANTOPRAZOLE SOD 40 MG DELAYED RELEASE TAB PO SCH (20:50)
[2017-01-04] MEDS: ISOSORBIDE MONONITRATE 30 MG TAB PO SCH ×2 (06:25→18:12)
[2017-01-04] MEDS: LEVOTHYROXINE SODIUM 88 MCG TAB PO SCH (06:25)
[2017-01-04 06:41] VITALS: BP 124/59; PULSE 62; RESP 16; TEMP 97.7; O2SAT 98
[2017-01-04] MEDS: INSULIN ASPART SUPPLEMENTAL SCALE SQ SCH ×4 (07:30→21:14)
[2017-01-04] MEDS: ASPIRIN 81 MG CHEW TAB CHEW SCH (08:37)
[2017-01-04] MEDS: levETIRAcetam 500 MG TAB PO SCH ×2 (08:38→21:12)
[2017-01-04] MEDS: CLOPIDOGREL 75 MG TAB PO SCH (08:38)
[2017-01-04] MEDS: DIGOXIN 0.125 MG TAB PO SCH (08:39)
[2017-01-04] MEDS: INSULIN DETEMIR 100 UNITS/ML VIAL SQ SCH (08:41)
--- NOTE | 2017-01-04 09:08 | HHI.PYPN ---
Subjective Chief Complaint: Behavioral disturbance Remarks Patient seen and examined. Chart reviewed. Case discussed in treatment team. Per nursing staff, patient is somewhat calmer. She did get her CPAP device overnight and slept well. On my examination today, she is less irritable. She continues to insist that she needs to be home with her but is more receptive to the idea of placement. Cognition unchanged. No side effects from medications. No physical complaints. Review of Systems ROS Limitations: Poor Historian Except as stated in HPI: all other systems reviewed are Neg Mental Status Examination Appearance: Appropriate Consciousness: Alert Orientation: Person, Place Motor Activity: Other (no motor abnormalities) Speech: Unremarkable Language: Adequate Attention and Concentration: Easily Distracted Memory: Impaired Mood: Appropriate Affect: Appropriate Thought Process & Associations: Linear, Other (some paucity of thought) Thought Content: Appropriate Hallucination Type: None Delusion Type: None Suicidal Ideation: No Suicidal Plan: No Suicidal Intention: No Homicidal Ideation: No Homicidal Plan: No Homicidal Intention: No Insight: Poor Judgment: Poor Results Labs Labs reviewed. Vitals/IOs Vital Signs Date Time Temp Pulse Resp B/P (MAP) Pulse Ox O2 Delivery O2 Flow Rate FiO2 01/04/17 06:41 97.7 62 16 124/59 (80) 98 Intake and Output 01/04/17 01/04/17 01/05/17 08:00 16:00 00:00 Intake Total 240 ml Balance 240 ml Assessment & Plan Problem List: (1) Dementia ICD Codes: F03.90 - Unspecified dementia without behavioral disturbance Status: Acute Assessment & Plan Continue current psychotropics as ordered. Continue to monitor on the inpatient unit. Continue other medications and care as ordered. Justification for Cont. Inpt. Risk for decompensation in less restrictive environment. Discharge Planning Counselor informs me that receiving facility is in place, we are just waiting for completion of PASRR II. Request HC Surrog/Guard Advoc?: Yes Problem Qualifiers (1) Dementia: Qualified Codes: G30.8 - Other Alzheimer's disease; F02.81 - Dementia in other diseases classified elsewhere with behavioral disturbance Braulio Rooney MD Jan 04, 2017 09:08
[2017-01-04] MEDS: QUEtiapine FUMARATE 25 MG TAB PO SCH ×3 (09:48→21:12)
--- NOTE | 2017-01-04 13:03 | PD.TTN ---
Patient Problems 1. Discharge planning 2. Medication compliance 3. Knowledge deficit 4. Lack of coping skills Progress Toward Goals Provider Present: Dr. Fidelina Rooney Provider Input: 12/28/16 pt is in need of placement 01/04/17 appears calmer today and is still in need for placement Nurse(s) Input: 01/04/17 Patient is very upset that she has been here for 11 days, she does not want to go to rehab . Able to verbally be de-escalated. Sleeping better, Daughter visited her last night and visit went well, but she is still labile Psychiatric Counselors Present: Ronel Pretty LCSW Psych Therapist Input: 12/28/16 pt has limited income and cannot go to [facility] will work on [facility] placement 01/04/17 discussed that she is going to rehab but she does not want to, no insight and very upset about this wanting to go home with Occupational Therapist Input: 12/28/16needs to assess just got here Ronel Pretty LCSW Jan 04, 2017 13:03
--- NOTE | 2017-01-04 13:04 | PD.TTN ---
Patient Problems 1. Discharge planning 2. Medication compliance 3. Knowledge deficit 4. Lack of coping skills Progress Toward Goals Provider Present: Dr. Fidelina Rooney Provider Input: 12/28/16 pt is in need of placement 01/04/17 appears calmer today and is still in need for placement Nurse(s) Input: 01/04/17 Patient is very upset that she has been here for 11 days, she does not want to go to rehab . Able to verbally be de-escalated. Sleeping better, Daughter visited her last night and visit went well, but she is still labile Psychiatric Counselors Present: Ronel Pretty LCSW Psych Therapist Input: 12/28/16 pt has limited income and cannot go to [facility] will work on NH placement 01/04/17 discussed that she is going to rehab but she does not want to, no insight and very upset about this wanting to go home with Occupational Therapist Input: 12/28/16needs to assess just got here Ronel Pretty LCSW Jan 04, 2017 13:03
[2017-01-04 18:00] VITALS: BP 146/66; PULSE 74; RESP 18; TEMP 97.5; O2SAT 100
[2017-01-04] MEDS: ATORVASTATIN 20 MG TAB PO SCH (21:12)
[2017-01-04] MEDS: PANTOPRAZOLE SOD 40 MG DELAYED RELEASE TAB PO SCH (21:12)
[2017-01-05] MEDS: ISOSORBIDE MONONITRATE 30 MG TAB PO SCH ×2 (06:16→17:41)
[2017-01-05] MEDS: LEVOTHYROXINE SODIUM 88 MCG TAB PO SCH (06:17)
[2017-01-05 06:35] VITALS: BP 103/55; PULSE 67; RESP 16; TEMP 97.7; O2SAT 98
[2017-01-05] MEDS: INSULIN ASPART SUPPLEMENTAL SCALE SQ SCH ×4 (07:25→20:48)
[2017-01-05] MEDS: INSULIN DETEMIR 100 UNITS/ML VIAL SQ SCH (08:17)
[2017-01-05] MEDS: ASPIRIN 81 MG CHEW TAB CHEW SCH (08:56)
[2017-01-05] MEDS: DIGOXIN 0.125 MG TAB PO SCH (08:57)
[2017-01-05] MEDS: levETIRAcetam 500 MG TAB PO SCH ×2 (08:58→20:47)
[2017-01-05] MEDS: CLOPIDOGREL 75 MG TAB PO SCH (08:58)
[2017-01-05] MEDS: QUEtiapine FUMARATE 25 MG TAB PO SCH ×3 (09:00→20:47)
--- NOTE | 2017-01-05 11:35 | HHI.PYPN ---
Subjective Chief Complaint: Behavioral disturbance Remarks Patient seen and examined. Chart reviewed. Case discussed with RN who reports patient has been no significant behavioral problem. On my exam, patient is sitting in the day area, calm. She offers no particular complaints. Remains at confused baseline. No side effects from medications. No physical complaints. Review of Systems ROS Limitations: Poor Historian Except as stated in HPI: all other systems reviewed are Neg Mental Status Examination Appearance: Appropriate Consciousness: Alert Orientation: Person, Place Motor Activity: Other (No abnormal motor movements noted) Speech: Unremarkable Language: Adequate Attention and Concentration: Easily Distracted Memory: Impaired Mood: Appropriate Affect: Appropriate Thought Process & Associations: Other (some paucity of thought) Thought Content: Appropriate Hallucination Type: None Delusion Type: None Suicidal Ideation: No Suicidal Plan: No Suicidal Intention: No Homicidal Ideation: No Homicidal Plan: No Homicidal Intention: No Insight: Poor Judgment: Poor Results Labs Labs reviewed. No new labs. Vitals/IOs Vital Signs Date Time Temp Pulse Resp B/P (MAP) Pulse Ox O2 Delivery O2 Flow Rate FiO2 01/05/17 06:35 97.7 67 16 103/55 (71) 98 Intake and Output 01/05/17 01/05/17 01/06/17 08:00 16:00 00:00 Intake Total 240 ml Balance 240 ml Assessment & Plan Problem List: (1) Dementia ICD Codes: F03.90 - Unspecified dementia without behavioral disturbance Status: Acute Assessment & Plan Continue current psychotropics as ordered. Continue to monitor on the inpatient unit. Continue other medications and care as ordered. Justification for Cont. Inpt. Risk for decompensation in less restrictive environment Discharge Planning Awaiting completion of PASRR II for placement. Case discussed with counselor. Request HC Surrog/Guard Advoc?: Yes Problem Qualifiers (1) Dementia: Qualified Codes: G30.8 - Other Alzheimer's disease; F02.81 - Dementia in other diseases classified elsewhere with behavioral disturbance Braulio Rooney MD Jan 05, 2017 11:35
[2017-01-05 17:51] VITALS: BP 91/61; PULSE 82; RESP 16; TEMP 97.4; O2SAT 93
[2017-01-05] MEDS: PANTOPRAZOLE SOD 40 MG DELAYED RELEASE TAB PO SCH (20:47)
[2017-01-05] MEDS: ATORVASTATIN 20 MG TAB PO SCH (20:47)
[2017-01-06 05:43] VITALS: BP 142/63; PULSE 16; RESP 16; TEMP 98; O2SAT 94
[2017-01-06] MEDS: ISOSORBIDE MONONITRATE 30 MG TAB PO SCH ×2 (06:20→18:14)
[2017-01-06] MEDS: LEVOTHYROXINE SODIUM 88 MCG TAB PO SCH (06:20)
[2017-01-06] MEDS: INSULIN ASPART SUPPLEMENTAL SCALE SQ SCH ×4 (07:30→23:09)
[2017-01-06] MEDS: ASPIRIN 81 MG CHEW TAB CHEW SCH (08:24)
[2017-01-06] MEDS: DIGOXIN 0.125 MG TAB PO SCH (08:24)
[2017-01-06] MEDS: levETIRAcetam 500 MG TAB PO SCH ×2 (08:24→22:30)
[2017-01-06] MEDS: CLOPIDOGREL 75 MG TAB PO SCH (08:24)
[2017-01-06] MEDS: INSULIN DETEMIR 100 UNITS/ML VIAL SQ SCH (08:25)
[2017-01-06] MEDS: QUEtiapine FUMARATE 25 MG TAB PO SCH ×3 (08:25→22:30)
--- NOTE | 2017-01-06 11:22 | HHI.PYPN ---
Subjective Chief Complaint: Behavioral disturbance Remarks Patient seen and examined. Chart reviewed. Case discussed with nursing staff. No behavioral issues overnight. On my examination today, the patient remains at her confused baseline. She continues to insist that it is her daughter who is "starting the problem, not me." Mood fair, no psychotic symptoms. No side effects from medications. No physical complaints. Review of Systems ROS Limitations: Poor Historian Except as stated in HPI: all other systems reviewed are Neg Mental Status Examination Appearance: Appropriate Consciousness: Alert Orientation: Person, Place Motor Activity: Other (no motor abnormalities) Speech: Unremarkable Language: Adequate Attention and Concentration: Easily Distracted Memory: Impaired Mood: Appropriate (fair) Affect: Appropriate Thought Process & Associations: Other (some paucity of thought) Thought Content: Appropriate Hallucination Type: None Delusion Type: None Suicidal Ideation: No Suicidal Plan: No Suicidal Intention: No Homicidal Ideation: No Homicidal Plan: No Homicidal Intention: No Insight: Poor Judgment: Poor Results Labs Labs reviewed Vitals/IOs Vital Signs Date Time Temp Pulse Resp B/P (MAP) Pulse Ox O2 Delivery O2 Flow Rate FiO2 01/06/17 05:43 98.0 16 16 142/63 (89) 94 Intake and Output 01/06/17 01/06/17 01/07/17 08:00 16:00 00:00 Intake Total 240 ml Balance 240 ml Assessment & Plan Problem List: (1) Dementia ICD Codes: F03.90 - Unspecified dementia without behavioral disturbance Status: Acute Assessment & Plan Continue Seroquel as ordered. Continue to monitor on the inpatient unit. Continue other medications and care as ordered. Patient's case was presented to the Gonzalez act court and she was retained on the unit by the passenger screener. Justification for Cont. Inpt. Risk for decompensation in less restrictive environment. Discharge Planning Still awaiting PASRR II. Case d/w counselor. Request HC Surrog/Guard Advoc?: Yes Problem Qualifiers (1) Dementia: Qualified Codes: G30.8 - Other Alzheimer's disease; F02.81 - Dementia in other diseases classified elsewhere with behavioral disturbance Braulio Rooney MD Jan 06, 2017 11:22
[2017-01-06 18:25] VITALS: BP 115/56; PULSE 68; RESP 16; TEMP 98.1; O2SAT 94
[2017-01-06] MEDS: ATORVASTATIN 20 MG TAB PO SCH (22:30)
[2017-01-06] MEDS: PANTOPRAZOLE SOD 40 MG DELAYED RELEASE TAB PO SCH (22:30)
[2017-01-07] MEDS: LEVOTHYROXINE SODIUM 88 MCG TAB PO SCH (06:14)
[2017-01-07] MEDS: ISOSORBIDE MONONITRATE 30 MG TAB PO SCH ×2 (06:14→18:45)
[2017-01-07 06:36] VITALS: BP 126/59; PULSE 68; RESP 16; TEMP 98.4; O2SAT 99
[2017-01-07] MEDS: INSULIN ASPART SUPPLEMENTAL SCALE SQ SCH ×4 (08:00→21:27)
[2017-01-07] MEDS: INSULIN DETEMIR 100 UNITS/ML VIAL SQ SCH (08:51)
[2017-01-07] MEDS: ASPIRIN 81 MG CHEW TAB CHEW SCH (08:59)
[2017-01-07] MEDS: levETIRAcetam 500 MG TAB PO SCH ×2 (09:00→21:27)
[2017-01-07] MEDS: DIGOXIN 0.125 MG TAB PO SCH (09:00)
[2017-01-07] MEDS: CLOPIDOGREL 75 MG TAB PO SCH (09:00)
[2017-01-07] MEDS: QUEtiapine FUMARATE 25 MG TAB PO SCH ×3 (10:37→21:27)
--- NOTE | 2017-01-07 13:08 | HHI.PYPN ---
Subjective Chief Complaint: Behavioral disturbance Remarks Patient seen and examined. Chart reviewed. Case discussed with nursing staff. No behavioral issues noted. On my examination today, the patient is calm on the unit. She remains insistent that she has to return home to care for her , blames her daughter for her current predicament. Remains at confused baseline. No side effects from meds. No physical complaints. Review of Systems ROS Limitations: Poor Historian Except as stated in HPI: all other systems reviewed are Neg Mental Status Examination Appearance: Appropriate Consciousness: Alert Orientation: Person, Place (at least) Motor Activity: Other (no motor abnormalities) Speech: Unremarkable Language: Adequate Attention and Concentration: Easily Distracted Memory: Impaired Mood: Appropriate Affect: Appropriate Thought Process & Associations: Linear, Other (some paucity of thought) Thought Content: Appropriate Hallucination Type: None Delusion Type: None Suicidal Ideation: No Suicidal Plan: No Suicidal Intention: No Homicidal Ideation: No Homicidal Plan: No Homicidal Intention: No Insight: Poor Judgment: Poor Results Labs Labs reviewed. Vitals/IOs Vital Signs Date Time Temp Pulse Resp B/P (MAP) Pulse Ox O2 Delivery O2 Flow Rate FiO2 01/07/17 06:36 98.4 68 16 126/59 (81) 99 Intake and Output 01/07/17 01/07/17 01/08/17 08:00 16:00 00:00 Intake Total 0 ml 360 ml Balance 0 ml 360 ml Assessment & Plan Problem List: (1) Dementia ICD Codes: F03.90 - Unspecified dementia without behavioral disturbance Status: Acute Assessment & Plan Continue Seroquel as ordered. Continue to monitor on the inpatient unit. I will check a digoxin level for therapeutic drug level monitoring. Continue other medications and care as ordered. Justification for Cont. Inpt. High risk for decompensation in less restrictive environment. Discharge Planning Case discussed with counselor. Request HC Surrog/Guard Advoc?: Yes Problem Qualifiers (1) Dementia: Qualified Codes: G30.8 - Other Alzheimer's disease; F02.81 - Dementia in other diseases classified elsewhere with behavioral disturbance Braulio Rooney MD Jan 07, 2017 13:08
[2017-01-07 18:29] VITALS: BP 167/86; PULSE 73; RESP 16; TEMP 97.5; O2SAT 100
[2017-01-07] MEDS: PANTOPRAZOLE SOD 40 MG DELAYED RELEASE TAB PO SCH (21:26)
[2017-01-07] MEDS: ATORVASTATIN 20 MG TAB PO SCH (21:27)
[2017-01-08 06:00] VITALS: BP 129/61; PULSE 62; RESP 16; TEMP 97.5; O2SAT 97
[2017-01-08] MEDS: ISOSORBIDE MONONITRATE 30 MG TAB PO SCH ×2 (06:33→18:15)
[2017-01-08] MEDS: LEVOTHYROXINE SODIUM 88 MCG TAB PO SCH (06:33)
[2017-01-08] MEDS: INSULIN ASPART SUPPLEMENTAL SCALE SQ SCH ×4 (08:00→20:24)
[2017-01-08] MEDS: QUEtiapine FUMARATE 25 MG TAB PO SCH ×3 (09:07→20:23)
[2017-01-08] MEDS: levETIRAcetam 500 MG TAB PO SCH ×2 (09:07→20:22)
[2017-01-08] MEDS: ASPIRIN 81 MG CHEW TAB CHEW SCH (09:07)
[2017-01-08] MEDS: CLOPIDOGREL 75 MG TAB PO SCH (09:08)
[2017-01-08] MEDS: DIGOXIN 0.125 MG TAB PO SCH (09:08)
[2017-01-08] MEDS: INSULIN DETEMIR 100 UNITS/ML VIAL SQ SCH (09:21)
--- NOTE | 2017-01-08 13:42 | HHI.PYPN ---
Subjective Chief Complaint: Behavioral disturbance Remarks Patient was seen and case discussed with nursing. Patient is alert and oriented 3. She minimizes her behavior before admission. She is behaving well on the unit and has not had any physical or verbal outbursts. She is very perseverative on being discharged home and not to a group home. Continues to speak daily with her . Mental Status Examination Appearance: Appropriate Consciousness: Alert Orientation: Person, Place (at least) Motor Activity: Other (no motor abnormalities) Speech: Unremarkable Language: Adequate Attention and Concentration: Easily Distracted Memory: Impaired Mood: Appropriate Affect: Other (perseverant) Thought Process & Associations: Linear, Other (some paucity of thought) Thought Content: Appropriate Hallucination Type: None Delusion Type: None Suicidal Ideation: No Suicidal Plan: No Suicidal Intention: No Homicidal Ideation: No Homicidal Plan: No Homicidal Intention: No Insight: Poor Judgment: Poor Results Vitals/IOs Vital Signs Date Time Temp Pulse Resp B/P (MAP) Pulse Ox O2 Delivery O2 Flow Rate FiO2 01/08/17 06:00 97.5 62 16 129/61 (83) 97 Intake and Output 01/08/17 01/08/17 01/09/17 08:00 16:00 00:00 Intake Total 600 ml 360 ml Balance 600 ml 360 ml Assessment & Plan Problem List: (1) Dementia ICD Codes: F03.90 - Unspecified dementia without behavioral disturbance Status: Acute Assessment & Plan Continue current treatment plan Justification for Cont. Inpt. Patient would decompensate in a less restrictive setting Request HC Surrog/Guard Advoc?: Yes Problem Qualifiers (1) Dementia: Qualified Codes: G30.8 - Other Alzheimer's disease; F02.81 - Dementia in other diseases classified elsewhere with behavioral disturbance Sin Childers DO Jan 08, 2017 13:42
[2017-01-08] MEDS: PANTOPRAZOLE SOD 40 MG DELAYED RELEASE TAB PO SCH (20:22)
[2017-01-08] MEDS: ATORVASTATIN 20 MG TAB PO SCH (20:23)
[2017-01-08 20:56] VITALS: BP 166/74; PULSE 76; RESP 18; TEMP 97.9; O2SAT 100
[2017-01-09 06:07] VITALS: BP 133/65; PULSE 69; RESP 16; TEMP 97.7; O2SAT 100
[2017-01-09] MEDS: LEVOTHYROXINE SODIUM 88 MCG TAB PO SCH (06:38)
[2017-01-09] MEDS: ISOSORBIDE MONONITRATE 30 MG TAB PO SCH ×2 (06:38→18:34)
[2017-01-09] MEDS: INSULIN ASPART SUPPLEMENTAL SCALE SQ SCH ×4 (08:00→21:19)
[2017-01-09] MEDS: ASPIRIN 81 MG CHEW TAB CHEW SCH (08:27)
[2017-01-09] MEDS: CLOPIDOGREL 75 MG TAB PO SCH (08:28)
[2017-01-09] MEDS: QUEtiapine FUMARATE 25 MG TAB PO SCH ×3 (08:28→21:18)
[2017-01-09] MEDS: levETIRAcetam 500 MG TAB PO SCH ×2 (08:28→21:18)
[2017-01-09] MEDS: DIGOXIN 0.125 MG TAB PO SCH (08:28)
[2017-01-09] MEDS: INSULIN DETEMIR 100 UNITS/ML VIAL SQ SCH (09:05)
--- NOTE | 2017-01-09 11:29 | HHI.PYPN ---
Subjective Chief Complaint: Behavioral disturbance Remarks Patient was seen and case discussed with nursing. Patient is pleasant and cooperative with exam. Alert and oriented 3. Continues to communicate with her at home. Behaving well on the unit. Tolerating medications well Mental Status Examination Appearance: Appropriate Consciousness: Alert Orientation: Person, Place (at least) Motor Activity: Other (no motor abnormalities) Speech: Unremarkable Language: Adequate Attention and Concentration: Easily Distracted Memory: Impaired Mood: Appropriate Affect: Other (perseverant) Thought Process & Associations: Linear, Other (some paucity of thought) Thought Content: Appropriate Hallucination Type: None Delusion Type: None Suicidal Ideation: No Suicidal Plan: No Suicidal Intention: No Homicidal Ideation: No Homicidal Plan: No Homicidal Intention: No Insight: Poor Judgment: Poor Results Labs Test 01/08/17 16:45 Digoxin Level 0.7 NG/ML Vitals/IOs Vital Signs Date Time Temp Pulse Resp B/P (MAP) Pulse Ox O2 Delivery O2 Flow Rate FiO2 01/09/17 06:07 97.7 69 16 133/65 (87) 100 Intake and Output 01/09/17 01/09/17 01/10/17 08:00 16:00 00:00 Intake Total 0 ml Balance 0 ml Assessment & Plan Problem List: (1) Dementia ICD Codes: F03.90 - Unspecified dementia without behavioral disturbance Status: Acute Assessment & Plan Continue current treatment plan Justification for Cont. Inpt. Patient would decompensate in a less restrictive setting Request HC Surrog/Guard Advoc?: Yes Problem Qualifiers (1) Dementia: Qualified Codes: G30.8 - Other Alzheimer's disease; F02.81 - Dementia in other diseases classified elsewhere with behavioral disturbance Sin Childers DO Jan 09, 2017 11:29
[2017-01-09 18:27] VITALS: BP 163/78; PULSE 70; RESP 17; TEMP 97.7; O2SAT 99
[2017-01-09] MEDS: ATORVASTATIN 20 MG TAB PO SCH (21:18)
[2017-01-09] MEDS: PANTOPRAZOLE SOD 40 MG DELAYED RELEASE TAB PO SCH (21:18)
[2017-01-10 05:37] VITALS: BP 162/77; PULSE 97; RESP 18; TEMP 97.5
[2017-01-10] MEDS: LEVOTHYROXINE SODIUM 88 MCG TAB PO SCH (06:29)
[2017-01-10] MEDS: ISOSORBIDE MONONITRATE 30 MG TAB PO SCH ×2 (06:29→18:25)
[2017-01-10] MEDS: INSULIN ASPART SUPPLEMENTAL SCALE SQ SCH ×4 (08:19→20:25)
[2017-01-10] MEDS: QUEtiapine FUMARATE 25 MG TAB PO SCH ×4 (09:00→20:32)
[2017-01-10] MEDS: DIGOXIN 0.125 MG TAB PO SCH (09:27)
[2017-01-10] MEDS: CLOPIDOGREL 75 MG TAB PO SCH (09:27)
[2017-01-10] MEDS: levETIRAcetam 500 MG TAB PO SCH ×2 (09:27→20:25)
[2017-01-10] MEDS: ASPIRIN 81 MG CHEW TAB CHEW SCH (09:27)
[2017-01-10] MEDS: INSULIN DETEMIR 100 UNITS/ML VIAL SQ SCH (09:28)
[2017-01-10] MEDS ORDERED: LEVEMIR SQ (09:48)
[2017-01-10] MEDS ORDERED: NOVOLOGSS SQ (09:48)
[2017-01-10] MEDS ORDERED: QUET1TAB7 PO ×2 (09:48)
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
--- NOTE | 2017-01-10 10:55 | HHI.PYPN ---
Subjective Chief Complaint: Behavioral disturbance Remarks Patient seen and examined. Chart reviewed. Case discussed with nursing staff. Patient was for discharge today to facility but state certifying agency is requesting additional documentation per counselor, and so the patient cannot be discharged for this reason. On my examination today, the patient denies SI or HI. She is presently calm. She denies AVH. She says that she is sleeping better with the benefit of medications. She denies side effects from these medications. No physical complaints. Review of Systems ROS Limitations: Poor Historian Except as stated in HPI: all other systems reviewed are Neg Mental Status Examination Appearance: Appropriate Consciousness: Alert Orientation: Person, Place (at least) Motor Activity: Other (no motoric abnormalities noted) Speech: Unremarkable Language: Adequate Attention and Concentration: Easily Distracted Memory: Impaired Mood: Appropriate Affect: Appropriate Thought Process & Associations: Linear, Other (some paucity of thought) Thought Content: Appropriate Hallucination Type: None Delusion Type: None Suicidal Ideation: No Homicidal Ideation: No Insight: Poor Judgment: Poor Results Labs Labs reviewed. I note that digoxin level drawn over the weekend was somewhat low. Vitals/IOs Vital Signs Date Time Temp Pulse Resp B/P (MAP) Pulse Ox O2 Delivery O2 Flow Rate FiO2 01/10/17 05:37 97.5 97 18 162/77 (105) 01/09/17 18:27 99 Intake and Output 01/10/17 01/10/17 01/11/17 08:00 16:00 00:00 Intake Total 360 ml Balance 360 ml Assessment & Plan Problem List: (1) Dementia ICD Codes: F03.90 - Unspecified dementia without behavioral disturbance Status: Acute Assessment & Plan Continue Seroquel as ordered. I will ask the hospitalist to return to evaluate the patient for mildly subtherapeutic digoxin level and also because blood pressure readings have been running somewhat high. Continue to monitor on the inpatient unit. Continue other medications and care as ordered. Justification for Cont. Inpt. Risk for decompensation in less restrictive environment Discharge Planning Placement Request HC Surrog/Guard Advoc?: Yes Problem Qualifiers (1) Dementia: Qualified Codes: G30.8 - Other Alzheimer's disease; F02.81 - Dementia in other diseases classified elsewhere with behavioral disturbance Braulio Rooney MD Jan 10, 2017 10:55
[2017-01-10 13:52] VITALS: BP 118/74; PULSE 74
--- NOTE | 2017-01-10 14:08 | HHI.PR ---
Subjective Remarks Reconsulted for elevated BP and low levels of serum digoxin levels. Patient reports she is feeling well. She wants to go home so she can go take care of her with Alzheimer disease. She denies any chest pain or shortness of breath. No heart palpitations. Objective Vitals Vital Signs Date Time Temp Pulse Resp B/P (MAP) Pulse Ox O2 Delivery O2 Flow Rate FiO2 01/10/17 13:52 74 118/74 (89) 01/10/17 05:37 97.5 97 18 162/77 (105) 01/09/17 18:27 97.7 70 17 163/78 (106) 99 I/O 01/09/17 01/09/17 01/09/17 01/10/17 01/10/17 01/10/17 07:00 15:00 23:00 07:00 15:00 23:00 Intake Total 480 ml 240 ml 480 ml 120 ml 240 ml Balance 480 ml 240 ml 480 ml 120 ml 240 ml Intake Oral 480 ml 240 ml 480 ml 120 ml 240 ml # Voids 3 1 0 # Bowel Movements 0 0 0 Objective Remarks GENERAL: No distress CARDIOVASCULAR: Regular rate and rhythm. RESPIRATORY: No accessory muscle use. Clear to auscultation. Breath sounds equal bilaterally. NEUROLOGICAL: Awake and alert. Normal speech. PSYCHIATRIC: calm. A/P Problem List: (1) Adjustment disorder ICD Code: F43.20 - Adjustment disorder, unspecified Status: Acute (2) HTN (hypertension) ICD Code: I10 - Essential (primary) hypertension Status: Chronic (3) Hypothyroidism ICD Code: E03.9 - Hypothyroidism, unspecified Status: Chronic (4) Seizure disorder ICD Code: G40.909 - Epilepsy, unspecified, not intractable, without status epilepticus Status: Chronic (5) DM type 2 (diabetes mellitus, type 2) ICD Code: E11.9 - Type 2 diabetes mellitus without complications Status: Chronic Assessment and Plan 76-year-old female with primary medical history of HTN, OK, seizure disorder, bipolar disorder, anxiety who came into the hospital under Gonzalez act from [facility]. She is now admitted to inpatient psychiatry unit for further evaluation. Hospitalist consulted for medical management. Adjustment disorder, psychosis Dementia - Managed by psychiatry team HTN: BP intermittently elevated but overall controlled. Target around <160/90. No change in her medication regimen currently to avoid Hypotension. She is asymptomatic. CAD, history of CABG/AICD placement HLD, chronic - Continue home medications atorvastatin 20 mg daily at bedtime, Plavix 75MG , isosorbide 30 mg twice a day, aspirin 81 mg daily, digoxin - Digoxin levels subtherapeutic but HR is controlled. No change indicated. DM 2, with hyperglycemia - Hemoglobin A1c 9.2 - Continue Levemir 14 units daily - Monitor Accu-Cheks Seizure disorder, chronic - Continue Keppra - Seizure precaution - EEG within normal Hypothyroidism - Continue levothyroxine - TSH within normal range Discharge Planning Medically stable. Cleared from a Hospitalist standpoint for discharge. Will sign off. Please call or reconsult as needed. Problem Qualifiers (1) Adjustment disorder: Qualified Codes: F43.25 - Adjustment disorder with mixed disturbance of emotions and conduct Brad Cervantes MD Jan 10, 2017 14:08
[2017-01-10 18:49] VITALS: BP 161/80; PULSE 108; RESP 18; TEMP 97.4; O2SAT 97
[2017-01-10] MEDS: PANTOPRAZOLE SOD 40 MG DELAYED RELEASE TAB PO SCH (20:25)
[2017-01-10] MEDS: ATORVASTATIN 20 MG TAB PO SCH (20:25)
[2017-01-11 05:55] VITALS: BP 159/73; PULSE 88; RESP 16; TEMP 98; O2SAT 95
[2017-01-11] MEDS: ISOSORBIDE MONONITRATE 30 MG TAB PO SCH ×2 (06:17→18:50)
[2017-01-11] MEDS: LEVOTHYROXINE SODIUM 88 MCG TAB PO SCH (06:17)
--- NOTE | 2017-01-11 07:48 | HHI.PYPN ---
Subjective Chief Complaint: Behavioral disturbance Remarks Patient seen and examined. Chart reviewed. Case discussed in treatment team. Per nursing staff, patient pleasant and cooperative with no problematic behaviors. Counselor reports that patient's placement is awaiting second assessment by the state. Occupational therapist notes the patient participates in some activities and is no behavioral problem. On my examination today, the patient is in fairly good spirits. She says that the Seroquel "calmed me right down." No mood or psychotic symptoms. Denies side effects from medications. No physical complaints. Review of Systems ROS Limitations: Poor Historian Except as stated in HPI: all other systems reviewed are Neg Mental Status Examination Appearance: Appropriate Consciousness: Alert Orientation: Person, Place Motor Activity: Other (no abnormal motor movements noted) Speech: Unremarkable Language: Adequate Attention and Concentration: Easily Distracted Memory: Impaired Mood: Appropriate Affect: Appropriate Thought Process & Associations: Linear Thought Content: Appropriate Hallucination Type: None Delusion Type: None Suicidal Ideation: No Homicidal Ideation: No Insight: Poor Judgment: Poor Results Labs labs reviewed Vitals/IOs Vital Signs Date Time Temp Pulse Resp B/P (MAP) Pulse Ox O2 Delivery O2 Flow Rate FiO2 01/11/17 05:55 98.0 88 16 159/73 (101) 95 Intake and Output 01/11/17 01/11/17 01/12/17 08:00 16:00 00:00 Intake Total 120 ml Balance 120 ml Assessment & Plan Problem List: (1) Dementia ICD Codes: F03.90 - Unspecified dementia without behavioral disturbance Status: Acute Assessment & Plan Continue Seroquel as ordered. Continue to monitor on the inpatient unit. Hospitalist input noted and appreciated. Continue other medications and care as ordered. Justification for Cont. Inpt. Risk for decompensation Discharge Planning Per counselor, [facility] review might be completed as early as today to allow for discharge to facility tomorrow, Tuesday. Request HC Surrog/Guard Advoc?: Yes Problem Qualifiers (1) Dementia: Qualified Codes: G30.8 - Other Alzheimer's disease; F02.81 - Dementia in other diseases classified elsewhere with behavioral disturbance Braulio Rooney MD Jan 11, 2017 07:48
[2017-01-11] MEDS: QUEtiapine FUMARATE 25 MG TAB PO SCH ×3 (07:52→21:04)
[2017-01-11] MEDS: CLOPIDOGREL 75 MG TAB PO SCH (07:52)
[2017-01-11] MEDS: INSULIN ASPART SUPPLEMENTAL SCALE SQ SCH ×4 (07:53→21:00)
[2017-01-11] MEDS: ASPIRIN 81 MG CHEW TAB CHEW SCH (07:53)
[2017-01-11] MEDS: levETIRAcetam 500 MG TAB PO SCH ×2 (07:53→21:03)
[2017-01-11] MEDS: DIGOXIN 0.125 MG TAB PO SCH (07:53)
[2017-01-11] MEDS: INSULIN DETEMIR 100 UNITS/ML VIAL SQ SCH (07:53)
--- NOTE | 2017-01-11 13:44 | PD.TTN ---
Patient Problems 1. Discharge planning 2. Medication compliance 3. Knowledge deficit 4. Lack of coping skills Progress Toward Goals Provider Present: Dr. Fidelina Rooney Provider Input: 12/28/16 pt is in need of placement 01/04/17 appears calmer today and is still in need for placement 01/11/2017: per doctor patient is stable adn medication compliant could be discharged when placement is available Nurse(s) Input: Per Gage RN, patient is eating meals and taking her medication, very confused and disorganized, require assistance and prompting. 01/04/17 Patient is very upset that she has been here for 11 days, she does not want to go to rehab . Able to verbally be de-escalated. Sleeping better, Daughter visited her last night and visit went well, but she is still labile Psychiatric Counselors Present: Ronel Pretty LCSW, Jane Aguirre, [facility] Psych Therapist Input: Patient has been accepted at [facility] pending Level II completion 12/28/16 pt has limited income and cannot go to [facility] will work on NH placement 01/04/17 discussed that she is going to rehab but she does not want to, no insight and very upset about this wanting to go home with Group Spec/RT/OT/ANDERSON Present: Mauri Solorzano OT, Alverto Ko, MONICA Group Spec/RT/OT/ANDERSON Input: Patient attends [facility] Occupational Therapist Input: 12/28/16needs to assess just got here Documentation Scribe: Jane Aguirre [facility] Jane Aguirre PRESTON Jan 11, 2017 13:44
[2017-01-11 17:18] VITALS: BP 140/71; PULSE 84; RESP 18; TEMP 97.6; O2SAT 99
[2017-01-11] MEDS: PANTOPRAZOLE SOD 40 MG DELAYED RELEASE TAB PO SCH (21:03)
[2017-01-11] MEDS: ATORVASTATIN 20 MG TAB PO SCH (21:04)
[2017-01-12 05:46] VITALS: BP 167/79; PULSE 99; RESP 18; TEMP 97.5; O2SAT 99
[2017-01-12] MEDS: LEVOTHYROXINE SODIUM 88 MCG TAB PO SCH (07:34)
[2017-01-12] MEDS: ISOSORBIDE MONONITRATE 30 MG TAB PO SCH ×2 (07:34→18:13)
[2017-01-12] MEDS: ASPIRIN 81 MG CHEW TAB CHEW SCH (07:35)
[2017-01-12] MEDS: CLOPIDOGREL 75 MG TAB PO SCH (07:35)
[2017-01-12] MEDS: INSULIN ASPART SUPPLEMENTAL SCALE SQ SCH ×4 (08:00→20:47)
[2017-01-12] MEDS: INSULIN DETEMIR 100 UNITS/ML VIAL SQ SCH (08:07)
[2017-01-12] MEDS: levETIRAcetam 500 MG TAB PO SCH ×2 (08:07→20:46)
[2017-01-12] MEDS: DIGOXIN 0.125 MG TAB PO SCH (08:10)
[2017-01-12] MEDS: QUEtiapine FUMARATE 25 MG TAB PO SCH ×3 (08:42→20:47)
--- NOTE | 2017-01-12 09:38 | HHI.PYPN ---
Subjective Chief Complaint: Behavioral disturbance Remarks Patient seen and examined. Chart reviewed. Case discussed with RN. No behavioral issues noted overnight. On my exam, patient reports Seroquel continues to help stabilize mood. She is in good spirits presently. She denies any SI/HI or AVH. Sleeping well. A little forgetful. Denies side effects from medications. No physical complaints. Review of Systems ROS Limitations: Poor Historian Mental Status Examination Appearance: Appropriate Consciousness: Alert Orientation: Person, Place Motor Activity: Other (no motor abnormalities noted) Speech: Unremarkable Language: Adequate Attention and Concentration: Adequate Memory: Impaired Mood: Appropriate Affect: Appropriate Thought Process & Associations: Linear Thought Content: Appropriate Hallucination Type: None Delusion Type: None Suicidal Ideation: No Homicidal Ideation: No Insight: Poor Judgment: Poor Results Labs Labs reviewed Vitals/IOs Vital Signs Date Time Temp Pulse Resp B/P (MAP) Pulse Ox O2 Delivery O2 Flow Rate FiO2 01/12/17 05:46 97.5 99 18 167/79 (108) 99 Intake and Output 01/12/17 01/12/17 01/13/17 08:00 16:00 00:00 Intake Total 240 ml Balance 240 ml Assessment & Plan Problem List: (1) Dementia ICD Codes: F03.90 - Unspecified dementia without behavioral disturbance Status: Acute Assessment & Plan We are still awaiting completion of PASRR II. Continue Seroquel as ordered. Continue to monitor on the inpatient unit. Continue other care as ordered. Justification for Cont. Inpt. Risk for decompensation in less restrictive environment. Discharge Planning To [facility] once PASRR II is completed, if not later today then tomorrow. Request HC Surrog/Guard Advoc?: Yes Problem Qualifiers (1) Dementia: Qualified Codes: G30.8 - Other Alzheimer's disease; F02.81 - Dementia in other diseases classified elsewhere with behavioral disturbance Braulio Rooney MD Jan 12, 2017 09:38
[2017-01-12 18:45] VITALS: BP 161/78; PULSE 87; RESP 18; TEMP 97.9; O2SAT 98
[2017-01-12] MEDS: ATORVASTATIN 20 MG TAB PO SCH (20:46)
[2017-01-12] MEDS: PANTOPRAZOLE SOD 40 MG DELAYED RELEASE TAB PO SCH (20:47)
[2017-01-13] MEDS: LEVOTHYROXINE SODIUM 88 MCG TAB PO SCH (06:16)
[2017-01-13] MEDS: ISOSORBIDE MONONITRATE 30 MG TAB PO SCH (06:37)
[2017-01-13 06:46] VITALS: BP 155/69; PULSE 71; RESP 16; TEMP 98.1; O2SAT 98
[2017-01-13] MEDS: INSULIN ASPART SUPPLEMENTAL SCALE SQ SCH (08:33)
[2017-01-13] MEDS: DIGOXIN 0.125 MG TAB PO SCH (08:57)
[2017-01-13] MEDS: INSULIN DETEMIR 100 UNITS/ML VIAL SQ SCH (08:58)
[2017-01-13] MEDS: levETIRAcetam 500 MG TAB PO SCH (08:58)
[2017-01-13] MEDS: ASPIRIN 81 MG CHEW TAB CHEW SCH (08:58)
[2017-01-13] MEDS: CLOPIDOGREL 75 MG TAB PO SCH (08:58)
[2017-01-13] MEDS: QUEtiapine FUMARATE 25 MG TAB PO SCH (08:58)
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
[2017-01-13] MEDS ORDERED: NOVOLOGP2 SQ (09:19)
== END 2017-01-13 10:45 | DRG 882 ==
LOC: NEPD 13:24 → NEDA 12-28 02:59 → H250 12-28 04:20 → H4EA 01-10 12:30 → H260 01-12 19:18
PROVIDERS: ADMIT Psychiatry & Neurology Psychiatry; ATTEND Psychiatry & Neurology Psychiatry
DX: F43.25 Adjustment disorder with mixed disturbance of emotions and conduct (principal); F02.81 Dementia in other diseases classified elsewhere, unspecified severity, with behavioral disturbance; G30.9 Alzheimer's disease, unspecified; I50.9 Heart failure, unspecified; I11.0 Hypertensive heart disease with heart failure; E11.649 Type 2 diabetes mellitus with hypoglycemia without coma; E11.65 Type 2 diabetes mellitus with hyperglycemia; G40.909 Epilepsy, unspecified, not intractable, without status epilepticus; I25.2 Old myocardial infarction; K21.9 Gastro-esophageal reflux disease without esophagitis; E89.0 Postprocedural hypothyroidism; E78.5 Hyperlipidemia, unspecified; H91.90 Unspecified hearing loss, unspecified ear; F29 Unspecified psychosis not due to a substance or known physiological condition; F32.9 Major depressive disorder, single episode, unspecified; Z79.4 Long term (current) use of insulin; Z86.73 Personal history of transient ischemic attack (TIA), and cerebral infarction without residual deficits; Z88.0 Allergy status to penicillin; Z95.1 Presence of aortocoronary bypass graft; Z95.810 Presence of automatic (implantable) cardiac defibrillator; Z96.652 Presence of left artificial knee joint
CPT/HCPCS: 71010; 80048; 80053; 80061; 80162; 81001; 82948; 83036; 84443; 85025; 85610; 85730; 93005; 95819; J1815

== ENCOUNTER 2017-01-14 19:52 | Inpatient (IN) | payer MEDICARE, OTHER ==
[~2017-01-14 19:52] MED LIST changes: -CIPR250T52 PO; -DIAZ10 PO; -DILA100C PO; -LACT PO; -LEVE500 PO; -METR500T10 PO; +NOVOLOGP2 SQ; -ZOLO25TA PO
[2017-01-14 20:08] VITALS: BP 162/72; PULSE 87; RESP 18; TEMP 98.2; O2SAT 99
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
[2017-01-14] MEDS ORDERED: QUEtiapine FUMARATE 25 MG TAB PO ONE (21:00)
[2017-01-14] MEDS ORDERED: INSULIN DETEMIR 100 UNITS/ML VIAL SQ SCH (21:00)
[2017-01-14] MEDS ORDERED: levETIRAcetam 500 MG TAB PO ONE (21:00)
[2017-01-14] MEDS ORDERED: PANTOPRAZOLE SOD 40 MG DELAYED RELEASE TAB PO ONE (21:00)
[2017-01-14] MEDS ORDERED: ISOSORBIDE MONONITRATE 30 MG TAB PO ONE (21:00)
[2017-01-14] MEDS: ATORVASTATIN 20 MG TAB PO SCH (21:25)
[2017-01-14 21:27] LABS: AUTOMATED NEUTROPHIL # 4.8 TH/MM3 (1.8-7.7); BASOPHIL % 0.5 % (0.0-2.0); EOSINOPHIL # 0.1 TH/MM3 (0-0.4); EOSINOPHIL % 1.5 % (0.0-4.0); HEMATOCRIT 36.6 % (35.0-46.0); HEMO FLAGS DIFF FINAL; LYMPH % 31.8 % (9.0-44.0); LYMPHOCYTE # 2.6 TH/MM3 (1.0-4.8); MEAN CELL VOLUME 85.8 FL (80.0-100.0); MEAN CORPUSCULAR HEMOGLOBIN 28.4 PG (27.0-34.0); MEAN CORPUSCULAR HGB CONC 33.1 % (32.0-36.0); MONO % 7.5 % (0.0-8.0); NEUT % 58.7 % (16.0-70.0); PLATELET COUNT 227 TH/MM3 (150-450); RED BLOOD COUNT 4.27 MIL/MM3 (4.00-5.30); RED CELL DISTRIBUTION WIDTH 16.9 % (11.6-17.2); WHITE BLOOD COUNT 8.2 TH/MM3 (4.0-11.0)
[2017-01-14 21:54] LABS: ANION GAP 12 MEQ/L (5-15); AST (GOT) 16 U/L (15-37); BICARBONATE 23.7 MEQ/L (21.0-32.0); BLOOD UREA NITROGEN 13 MG/DL (7-18); CHLORIDE 105 MEQ/L (98-107); GLOMERULAR FILTRATION RATE 64 ML/MIN (>89); POTASSIUM 3.2 MEQ/L (3.5-5.1); SODIUM (NA) 141 MEQ/L (136-145)
[2017-01-14 21:58] LABS: ALKALINE PHOSPHATASE 95 U/L (45-117); ALT (GPT) 21 U/L (10-53); TOTAL BILIRUBIN ADULT 0.5 MG/DL (0.2-1.0)
[2017-01-14 21:59] LABS: BLOOD, URINE NEG (NEG); COMMENT (UR) CULT NOT INDICATED; CULTURE IF INDICATED CULT NOT INDICATED; GLUCOSE,URINE 1000 mg/dL (NEG); HYALINE CAST, URINE 1 /lpf (RARE); KETONE, URINE 10 mg/dL (NEG); NITRITE,URINE NEG (NEG); URINE COLOR YELLOW (YELLW/STRAW)
[2017-01-14 22:19] LABS: ALCOHOL LESS THAN 3 MG/DL (0-5)
[2017-01-14] MEDS ORDERED: POTASSIUM CHLORIDE 10 MEQ CONTROLLED RELEASE TAB PO ONE (22:45)
[2017-01-14] MEDS ORDERED: ACETAMINOPHEN 325 MG TAB PO PRN (23:15)
[2017-01-14] MEDS ORDERED: LORazepam 2 MG/ML VIAL - age > 65 yrs IM PRN (23:15)
[2017-01-14] MEDS ORDERED: MAGNESIUM HYDROXIDE SUSP 30 ML CUP PO PRN (23:15)
[2017-01-14] MEDS ORDERED: ALUMINUM/MAGNESIUM/SIMETH 30 ML CUP PO PRN (23:15)
[2017-01-14] MEDS ORDERED: diphenhydrAMINE HCL 50 MG/ML VIAL IM PRN (23:15)
[2017-01-14] MEDS ORDERED: diphenhydrAMINE HCL 50 MG CAP - HS PRN PO (23:15)
[2017-01-14] MEDS ORDERED: BENZTROPINE MESYLATE 2 MG/2 ML VIAL IM PRN (23:15)
[2017-01-14] MEDS ORDERED: diphenhydrAMINE HCL 50 MG CAP PO PRN (23:15)
[2017-01-14] MEDS ORDERED: BENZTROPINE MESYLATE 1 MG TAB PO PRN (23:15)
[2017-01-14] MEDS ORDERED: hydrOXYzine HCL 50 MG TAB PO PRN (23:15)
[2017-01-14] MEDS ORDERED: LORazepam 0.5 MG TAB age > 65 yrs PO PRN (23:15)
[2017-01-14] MEDS ORDERED: diphenhydrAMINE HCL 50 MG/ML VIAL - HS PRN IM (23:15)
[2017-01-14 23:50] VITALS: BP 106/54; PULSE 82; RESP 17; TEMP 98.3; O2SAT 98
[2017-01-15 05:53] VITALS: BP 108/55; PULSE 58; RESP 16; TEMP 97.8; O2SAT 100
[2017-01-15] MEDS: ISOSORBIDE MONONITRATE 30 MG TAB PO SCH ×2 (08:46→20:59)
[2017-01-15] MEDS: levETIRAcetam 500 MG TAB PO SCH ×2 (08:46→20:58)
[2017-01-15] MEDS: CLOPIDOGREL 75 MG TAB PO SCH (08:47)
[2017-01-15] MEDS: DIGOXIN 0.125 MG TAB PO SCH (08:47)
[2017-01-15] MEDS: ASPIRIN 81 MG CHEW TAB CHEW SCH (08:47)
[2017-01-15] MEDS: QUEtiapine FUMARATE 25 MG TAB PO SCH ×3 (08:54→20:59)
[2017-01-15] MEDS: NICOTINE 21 MG/24 HR PATCH T-DERMAL SCH (08:55)
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
[2017-01-15 12:52] LABS: ANION GAP 8 MEQ/L (5-15); BICARBONATE 24.5 MEQ/L (21.0-32.0); BLOOD UREA NITROGEN 16 MG/DL (7-18); CHLORIDE 105 MEQ/L (98-107); GLOMERULAR FILTRATION RATE 72 ML/MIN (>89); SODIUM (NA) 137 MEQ/L (136-145)
[2017-01-15 12:54] LABS: HDL CHOLESTEROL 66.7 MG/DL (40.0-60.0); LDL CHOLESTEROL 78 MG/DL (0-99)
[2017-01-15 13:45] LABS: HEMOGLOBIN A1a 1.6 %; HEMOGLOBIN A1b 0.9 %; HEMOGLOBIN Ao 81.9 %; HEMOGLOBIN F 1.2 %; HEMOGLOBIN LA1C 1.9 %; HEMOGLOBIN P3 3.9 %
--- NOTE | 2017-01-15 15:03 | HHI.PYPN ---
Subjective Remarks Pt seen and discussed with staff. She is complaint with medications. Insight remains poor. No behavioral problems. Results Labs Test 01/14/17 20:55 01/14/17 21:34 01/15/17 11:24 White Blood Count 8.2 TH/MM3 Red Blood Count 4.27 MIL/MM3 Hemoglobin 12.1 GM/DL Hematocrit 36.6 % Mean Corpuscular Volume 85.8 FL Mean Corpuscular Hemoglobin 28.4 PG Mean Corpuscular Hemoglobin Concent 33.1 % Red Cell Distribution Width 16.9 % Platelet Count 227 TH/MM3 Mean Platelet Volume 8.8 FL Neutrophils (%) (Auto) 58.7 % Lymphocytes (%) (Auto) 31.8 % Monocytes (%) (Auto) 7.5 % Eosinophils (%) (Auto) 1.5 % Basophils (%) (Auto) 0.5 % Neutrophils # (Auto) 4.8 TH/MM3 Lymphocytes # (Auto) 2.6 TH/MM3 Monocytes # (Auto) 0.6 TH/MM3 Eosinophils # (Auto) 0.1 TH/MM3 Basophils # (Auto) 0.0 TH/MM3 CBC Comment DIFF FINAL Differential Comment Blood Urea Nitrogen 13 MG/DL 16 MG/DL Creatinine 0.86 MG/DL 0.78 MG/DL Random Glucose 98 MG/DL 94 MG/DL Total Protein 6.7 GM/DL Albumin 3.5 GM/DL Calcium Level 8.5 MG/DL 8.8 MG/DL Alkaline Phosphatase 95 U/L Aspartate Amino Transf (AST/SGOT) 16 U/L Alanine Aminotransferase (ALT/SGPT) 21 U/L Total Bilirubin 0.5 MG/DL Sodium Level 141 MEQ/L 137 MEQ/L Potassium Level 3.2 MEQ/L 4.0 MEQ/L Chloride Level 105 MEQ/L 105 MEQ/L Carbon Dioxide Level 23.7 MEQ/L 24.5 MEQ/L Anion Gap 12 MEQ/L 8 MEQ/L Estimat Glomerular Filtration Rate 64 ML/MIN 72 ML/MIN Ethyl Alcohol Level LESS THAN 3 MG/DL Urine Color YELLOW Urine Turbidity CLEAR Urine pH 6.0 Urine Specific [place] 1.006 Urine Protein NEG mg/dL Urine Glucose (UA) 1000 mg/dL Urine Ketones 10 mg/dL Urine Occult Blood NEG Urine Nitrite NEG Urine Bilirubin NEG Urine Urobilinogen LESS THAN 2.0 MG/DL Urine Leukocyte Esterase MOD Urine WBC 4 /hpf Urine Hyaline Casts 1 /lpf Microscopic Urinalysis Comment CULT NOT INDICATED Urine Opiates Screen NEG Urine Barbiturates Screen NEG Urine Amphetamines Screen NEG Urine Benzodiazepines Screen NEG Urine Cocaine Screen NEG Urine Cannabinoids Screen NEG Hemoglobin A1c 8.5 % Triglycerides Level 90 MG/DL Cholesterol Level 163 MG/DL LDL Cholesterol 78 MG/DL HDL Cholesterol 66.7 MG/DL Cholesterol/HDL Ratio 2.44 RATIO Vitals/IOs Vital Signs Date Time Temp Pulse Resp B/P (MAP) Pulse Ox O2 Delivery O2 Flow Rate FiO2 01/15/17 05:53 97.8 58 16 108/55 (72) 100 Assessment & Plan Assessment & Plan Estimated LOS: Jazmine Barnes MD Jan 15, 2017 15:03
[2017-01-15 18:15] VITALS: BP 105/62; PULSE 77; RESP 18; TEMP 97.9; O2SAT 99
[2017-01-15] MEDS ORDERED: GLUCAGON 1 MG/ML VIAL OTHER PRN (19:00)
[2017-01-15] MEDS ORDERED: DEXTROSE 50% IN WATER 50 ML VIAL(D50) IV PUSH PRN (19:00)
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
[2017-01-15] MEDS: INSULIN ASPART SUPPLEMENTAL SCALE SQ SCH (20:46)
[2017-01-15] MEDS: PANTOPRAZOLE SOD 40 MG DELAYED RELEASE TAB PO SCH (20:59)
[2017-01-15] MEDS: ATORVASTATIN 20 MG TAB PO SCH (20:59)
[2017-01-15] MEDS ORDERED: ATORVASTATIN 20 MG TAB PO SCH (21:00)
[2017-01-15] MEDS: REMOVE OLD NICOTINE PATCH T-DERMAL SCH (21:00)
[2017-01-16 06:00] VITALS: BP 167/75; PULSE 107; RESP 18; TEMP 98.7; O2SAT 99
[2017-01-16] MEDS: LEVOTHYROXINE SODIUM 88 MCG TAB PO SCH (06:17)
[2017-01-16] MEDS: INSULIN ASPART SUPPLEMENTAL SCALE SQ SCH ×4 (07:30→20:40)
[2017-01-16] MEDS: ISOSORBIDE MONONITRATE 30 MG TAB PO SCH ×2 (08:32→21:13)
[2017-01-16] MEDS: CLOPIDOGREL 75 MG TAB PO SCH (08:32)
[2017-01-16] MEDS: DIGOXIN 0.125 MG TAB PO SCH (08:32)
[2017-01-16] MEDS: levETIRAcetam 500 MG TAB PO SCH ×2 (08:33→21:13)
[2017-01-16] MEDS: ASPIRIN 81 MG CHEW TAB CHEW SCH (08:33)
[2017-01-16] MEDS: NICOTINE 21 MG/24 HR PATCH T-DERMAL SCH (08:35)
[2017-01-16] MEDS: QUEtiapine FUMARATE 25 MG TAB PO SCH ×3 (08:38→21:13)
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
[2017-01-16 17:22] VITALS: BP 170/73; PULSE 98; RESP 18; TEMP 97.9; O2SAT 99
[2017-01-16 20:05] VITALS: BP 128/67; PULSE 74
[2017-01-16] MEDS: REMOVE OLD NICOTINE PATCH T-DERMAL SCH (21:00)
[2017-01-16] MEDS: PANTOPRAZOLE SOD 40 MG DELAYED RELEASE TAB PO SCH (21:13)
[2017-01-16] MEDS: ATORVASTATIN 20 MG TAB PO SCH (21:13)
[2017-01-17 06:07] VITALS: BP 113/56; PULSE 59; RESP 18; TEMP 97.6; O2SAT 99
[2017-01-17] MEDS: LEVOTHYROXINE SODIUM 88 MCG TAB PO SCH (06:16)
[2017-01-17] MEDS: INSULIN ASPART SUPPLEMENTAL SCALE SQ SCH ×4 (07:40→21:30)
[2017-01-17] MEDS: levETIRAcetam 500 MG TAB PO SCH ×2 (08:20→21:27)
[2017-01-17] MEDS: DIGOXIN 0.125 MG TAB PO SCH (08:20)
[2017-01-17] MEDS: CLOPIDOGREL 75 MG TAB PO SCH (08:21)
[2017-01-17] MEDS: NICOTINE 21 MG/24 HR PATCH T-DERMAL SCH (08:22)
[2017-01-17] MEDS: ASPIRIN 81 MG CHEW TAB CHEW SCH (08:22)
[2017-01-17] MEDS: ISOSORBIDE MONONITRATE 30 MG TAB PO SCH ×2 (08:22→21:27)
[2017-01-17] MEDS: QUEtiapine FUMARATE 25 MG TAB PO SCH ×3 (08:28→21:27)
[2017-01-17] MEDS ORDERED: hydrOXYzine HCL 50 MG TAB PO PRN (11:15)
[2017-01-17] MEDS ORDERED: LORazepam 0.5 MG TAB age > 65 yrs PO PRN ×2 (11:15→11:30)
[2017-01-17] MEDS ORDERED: LORazepam 2 MG/ML VIAL - age > 65 yrs IM PRN (11:15)
[2017-01-17] MEDS ORDERED: diphenhydrAMINE HCL 50 MG/ML VIAL IM PRN (11:30)
[2017-01-17] MEDS ORDERED: diphenhydrAMINE HCL 50 MG CAP - HS PRN PO (11:30)
[2017-01-17] MEDS ORDERED: diphenhydrAMINE HCL 50 MG/ML VIAL - HS PRN IM (11:30)
--- NOTE | 2017-01-17 13:49 | PD.TTN ---
Patient Problems 1. Discharge planning 2. Medication compliance 3. Knowledge deficit 4. Lack of coping skills Progress Toward Goals Provider Present: Dr. Karissa Castillo Provider Input: Patient has returned to [place] after recently being discharged to SNF. Patient will be on medication regiment and will continued to be monitored for progress. Nurse(s) Input: Patient is paranoid and somewhat isolative to the room. patient shows no behavioral issues on the unit. Patient is compliant with medications. Psychiatric Counselors Present: ENZO Bernard Psych Therapist Input: Patient is paranoid and endorses feelings of anger and depression. patient states that she wants to reside with her whom is ill. Counselor has spoken with daughter in regards to patients care. Will continue to look for placement for patient. Group Spec/RT/OT/ANDERSON Present: Mauri Solorzano OT Group Spec/RT/OT/ANDERSON Input: Patient is selective with groups. Michelle Barros [facility] Jan 17, 2017 13:49
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
[2017-01-17 17:41] VITALS: BP 149/73; PULSE 85; RESP 18; TEMP 97.9; O2SAT 100
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
[2017-01-17] MEDS: REMOVE OLD NICOTINE PATCH T-DERMAL SCH (21:00)
[2017-01-17 21:16] VITALS: BP 177/82; PULSE 72
[2017-01-17] MEDS: ATORVASTATIN 20 MG TAB PO SCH (21:28)
[2017-01-17] MEDS: PANTOPRAZOLE SOD 40 MG DELAYED RELEASE TAB PO SCH (21:28)
[2017-01-17] MEDS: INSULIN DETEMIR 100 UNITS/ML VIAL SQ SCH (21:30)
[2017-01-17 22:18] VITALS: BP 158/73; PULSE 99
[2017-01-18 05:58] VITALS: BP 156/78; PULSE 94; RESP 16; TEMP 97.5; O2SAT 99
[2017-01-18] MEDS: LEVOTHYROXINE SODIUM 88 MCG TAB PO SCH (06:18)
[2017-01-18] MEDS: INSULIN ASPART SUPPLEMENTAL SCALE SQ SCH ×4 (08:00→21:40)
[2017-01-18] MEDS: ASPIRIN 81 MG CHEW TAB CHEW SCH (09:00)
[2017-01-18] MEDS: NICOTINE 21 MG/24 HR PATCH T-DERMAL SCH (09:00)
[2017-01-18] MEDS: DIGOXIN 0.125 MG TAB PO SCH (09:06)
[2017-01-18] MEDS: CLOPIDOGREL 75 MG TAB PO SCH (09:07)
[2017-01-18] MEDS: ISOSORBIDE MONONITRATE 30 MG TAB PO SCH ×2 (09:07→21:41)
[2017-01-18] MEDS: levETIRAcetam 500 MG TAB PO SCH ×2 (09:07→21:41)
[2017-01-18] MEDS: QUEtiapine FUMARATE 25 MG TAB PO SCH ×3 (09:13→21:41)
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
[2017-01-18 15:31] VITALS: BP 149/62; PULSE 79
[2017-01-18] MEDS: amLODIPine BESYLATE 5 MG TAB PO SCH (15:59)
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
[2017-01-18] MEDS ORDERED: FLUTICASONE PROPIONATE 50 MCG/ACT 16 GM NASAL SPRAY EACH NARE SCH (17:00)
[2017-01-18 18:00] VITALS: BP 149/67; PULSE 79; RESP 17; TEMP 97.4; O2SAT 98
[2017-01-18] MEDS: REMOVE OLD NICOTINE PATCH T-DERMAL SCH (21:00)
[2017-01-18] MEDS: INSULIN DETEMIR 100 UNITS/ML VIAL SQ SCH (21:40)
[2017-01-18] MEDS: ATORVASTATIN 20 MG TAB PO SCH (21:40)
[2017-01-18] MEDS: PANTOPRAZOLE SOD 40 MG DELAYED RELEASE TAB PO SCH (21:41)
[2017-01-18] MEDS: FLUTICASONE PROPIONATE 50 MCG/ACT 16 GM NASAL SPRAY EACH NARE SCH (21:41)
[2017-01-19] MEDS: LEVOTHYROXINE SODIUM 88 MCG TAB PO SCH (06:26)
[2017-01-19 06:42] VITALS: BP 122/61; PULSE 85; RESP 16; TEMP 98.5; O2SAT 100
[2017-01-19] MEDS: INSULIN ASPART SUPPLEMENTAL SCALE SQ SCH ×4 (08:00→21:00)
--- NOTE | 2017-01-19 08:47 | PD.TTN ---
Patient Problems 1. Discharge planning 2. Medication compliance 3. Knowledge deficit 4. Lack of coping skills Progress Toward Goals Provider Present: Dr. Karissa Castillo Provider Input: Patient has returned to [place] after recently being discharged to SNF. Patient will be on medication regiment and will continued to be monitored for progress. 01/19 remains paranoid, no insight , continue treatment Nurse(s) Input: Patient is paranoid and somewhat isolative to the room. patient shows no behavioral issues on the unit. Patient is compliant with medications. 01/19 Katie : patient is med compliant more paranoid at night, pleasant refuses her CPap Psychiatric Counselors Present: Ronel Pretty LCSW, Michelle Barros, [facility] Psych Therapist Input: Patient is paranoid and endorses feelings of anger and depression. patient states that she wants to reside with her whom is ill. Counselor has spoken with daughter in regards to patients care. Will continue to look for placement for patient. 118 is a placement issue and wants to be with her if not with disruptive to placement beneficial if she goes with into a placement if possible Group Spec/RT/OT/ANDERSON Present: MONICA Perkins, Mauri Solorzano, OT Group Spec/RT/OT/ANDERSON Input: Patient is selective with groups. 11/8 attends most groups appropriately, becomes tearful when discussing discharge , intrusive to other patients, comes to exercise and Ronel Jennings LCSW Jan 19, 2017 08:47
[2017-01-19] MEDS: QUEtiapine FUMARATE 25 MG TAB PO SCH ×3 (09:00→21:07)
[2017-01-19] MEDS: NICOTINE 21 MG/24 HR PATCH T-DERMAL SCH (09:00)
[2017-01-19] MEDS: ISOSORBIDE MONONITRATE 30 MG TAB PO SCH ×2 (09:44→21:07)
[2017-01-19] MEDS: CLOPIDOGREL 75 MG TAB PO SCH (09:44)
[2017-01-19] MEDS: DIGOXIN 0.125 MG TAB PO SCH (09:44)
[2017-01-19] MEDS: levETIRAcetam 500 MG TAB PO SCH ×2 (09:44→21:07)
[2017-01-19] MEDS: amLODIPine BESYLATE 5 MG TAB PO SCH (09:44)
[2017-01-19] MEDS: ASPIRIN 81 MG CHEW TAB CHEW SCH (09:44)
[2017-01-19] MEDS: FLUTICASONE PROPIONATE 50 MCG/ACT 16 GM NASAL SPRAY EACH NARE SCH (09:55)
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
--- NOTE | 2017-01-19 17:10 | HHI.PYPN ---
Subjective Remarks Patient seen for follow-up, chart reviewed. Patient is find a room but was able to engage in interview today. Patient states that she is having some slight cough and sore throat but no other complaints. Patient denies any dangerous of breath, chest pain or sweating. Patient reports her mood as "good ", patient denies any perceptual disturbances or paranoid ideations today. Patient states that she spoke with her daughter and which went fine. Patient states her daughter may attended a health court tomorrow and continues to request to be discharged back home. Patient states she does not understand why she is unable to return: States that she loves her and would like to be there to take care of him. Review of Systems Except as stated in HPI: all other systems reviewed are Neg Mental Status Examination Appearance: Appropriate Consciousness: Alert Orientation: Person, Place, Date/Time Motor Activity: Normal gait Speech: Unremarkable Language: Adequate Fund of Knowledge: Adequate Attention and Concentration: Adequate Memory: Impaired Mood: Other Affect: Other (restricted) Thought Process & Associations: Goal directed (why he to be discharged home), Linear Thought Content: Delusional Hallucination Type: None Delusion Type: Paranoid, Other (persecutory and of people trying to poision her but denies today) Suicidal Ideation: No Suicidal Plan: No Suicidal Intention: No Homicidal Ideation: No Homicidal Plan: No Homicidal Intention: No Insight: Poor Judgment: Poor Results Vitals/IOs Vital Signs Date Time Temp Pulse Resp B/P (MAP) Pulse Ox O2 Delivery O2 Flow Rate FiO2 01/19/17 06:42 98.5 85 16 122/61 (81) 100 Assessment & Plan Problem List: (1) DEMENTIA IN OTH DISEASES CLASSD ELSWHR W BEHAVIORAL DISTURB ICD Codes: F02.81 - DEMENTIA IN OTH DISEASES CLASSD ELSWHR W BEHAVIORAL DISTURB Assessment & Plan Patient at this time continues to have poor insight into her cognitive deficits , continued to believe that she is able to care for herself and for her at home. Patient denies any perceptual disturbances or paranoid ideations at this time, compliant with medications. Continue current treatment. Patient will present to mental health court tomorrow for petition for involuntary hospitalization. Discharge planning in progress Justification for Cont. Inpt. At risk for further decompensation event lower level of care Discharge Planning Unclear where patient will be discharged to as other nursing facilities are currently being explored as possible options. Ramana Castillo MD Jan 19, 2017 17:10
[2017-01-19 18:22] VITALS: BP 158/74; PULSE 91; RESP 18; TEMP 96.1; O2SAT 100
[2017-01-19] MEDS: REMOVE OLD NICOTINE PATCH T-DERMAL SCH (21:00)
[2017-01-19] MEDS: ATORVASTATIN 20 MG TAB PO SCH (21:07)
[2017-01-19] MEDS: PANTOPRAZOLE SOD 40 MG DELAYED RELEASE TAB PO SCH (21:07)
[2017-01-19] MEDS: INSULIN DETEMIR 100 UNITS/ML VIAL SQ SCH (21:08)
[2017-01-20] MEDS: LEVOTHYROXINE SODIUM 88 MCG TAB PO SCH (06:19)
[2017-01-20 06:37] VITALS: BP 169/76; PULSE 98; RESP 15; TEMP 97.7; O2SAT 99
[2017-01-20] MEDS: INSULIN ASPART SUPPLEMENTAL SCALE SQ SCH ×4 (07:40→21:36)
[2017-01-20] MEDS: ASPIRIN 81 MG CHEW TAB CHEW SCH (08:12)
[2017-01-20] MEDS: levETIRAcetam 500 MG TAB PO SCH ×2 (08:12→21:34)
[2017-01-20] MEDS: FLUTICASONE PROPIONATE 50 MCG/ACT 16 GM NASAL SPRAY EACH NARE SCH (08:13)
[2017-01-20] MEDS: CLOPIDOGREL 75 MG TAB PO SCH (08:13)
[2017-01-20] MEDS: DIGOXIN 0.125 MG TAB PO SCH (08:13)
[2017-01-20] MEDS: cloNIDine HCL 0.1 MG TAB PO PRN (08:13)
[2017-01-20] MEDS: ISOSORBIDE MONONITRATE 30 MG TAB PO SCH ×2 (08:13→21:35)
[2017-01-20] MEDS: amLODIPine BESYLATE 5 MG TAB PO SCH (08:13)
[2017-01-20] MEDS: QUEtiapine FUMARATE 25 MG TAB PO SCH ×3 (08:20→21:35)
[2017-01-20] MEDS: NICOTINE 21 MG/24 HR PATCH T-DERMAL SCH (08:21)
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
[2017-01-20 16:56] VITALS: BP 127/66; PULSE 66; RESP 16; TEMP 97.1; O2SAT 98
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
[2017-01-20] MEDS: REMOVE OLD NICOTINE PATCH T-DERMAL SCH (21:00)
[2017-01-20] MEDS: diphenhydrAMINE HCL 50 MG CAP PO PRN (21:34)
[2017-01-20] MEDS: PANTOPRAZOLE SOD 40 MG DELAYED RELEASE TAB PO SCH (21:35)
[2017-01-20] MEDS: ATORVASTATIN 20 MG TAB PO SCH (21:35)
[2017-01-20] MEDS: INSULIN DETEMIR 100 UNITS/ML VIAL SQ SCH (21:37)
[2017-01-21 05:51] VITALS: BP 150/65; PULSE 75; RESP 17; TEMP 97.8; O2SAT 95
[2017-01-21] MEDS: LEVOTHYROXINE SODIUM 88 MCG TAB PO SCH (06:12)
[2017-01-21] MEDS: INSULIN ASPART SUPPLEMENTAL SCALE SQ SCH ×4 (08:00→21:00)
[2017-01-21] MEDS: FLUTICASONE PROPIONATE 50 MCG/ACT 16 GM NASAL SPRAY EACH NARE SCH (08:21)
[2017-01-21] MEDS: CLOPIDOGREL 75 MG TAB PO SCH (08:21)
[2017-01-21] MEDS: levETIRAcetam 500 MG TAB PO SCH ×2 (08:21→21:00)
[2017-01-21] MEDS: ISOSORBIDE MONONITRATE 30 MG TAB PO SCH ×2 (08:21→21:00)
[2017-01-21] MEDS: QUEtiapine FUMARATE 25 MG TAB PO SCH ×3 (08:21→21:00)
[2017-01-21] MEDS: DIGOXIN 0.125 MG TAB PO SCH (08:22)
[2017-01-21] MEDS: amLODIPine BESYLATE 5 MG TAB PO SCH (08:22)
[2017-01-21] MEDS: NICOTINE 21 MG/24 HR PATCH T-DERMAL SCH (08:25)
[2017-01-21] MEDS: ASPIRIN 81 MG CHEW TAB CHEW SCH (08:25)
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
--- NOTE | 2017-01-21 15:16 | HHI.PYPN ---
Subjective Remarks Patient seen for follow-up, chart reviewed. Patient found participating in group activity, calm and cooperative with interview. She states having felt alone at night and that he does not like feeling alone. She reports attending groups and interacting with staff. Mood has been "realizing that the help I'm getting is helping me feel more secure". She states having spoken to her yesterday which went well. Denies SI, HI, AVH or delusions. Review of Systems Except as stated in HPI: all other systems reviewed are Neg Mental Status Examination Appearance: Appropriate Consciousness: Alert Orientation: Person, Place, Date/Time Motor Activity: Normal gait Speech: Unremarkable Language: Adequate Fund of Knowledge: Adequate Attention and Concentration: Adequate Memory: Impaired Mood: Appropriate Affect: Appropriate Thought Process & Associations: Goal directed (why he to be discharged home), Linear Thought Content: Delusional Hallucination Type: None Delusion Type: Paranoid (less today), Other (persecutory and of people trying to poision her but denies today) Suicidal Ideation: No Suicidal Plan: No Suicidal Intention: No Homicidal Ideation: No Homicidal Plan: No Homicidal Intention: No Insight: Poor Judgment: Impulsive Results Vitals/IOs Vital Signs Date Time Temp Pulse Resp B/P (MAP) Pulse Ox O2 Delivery O2 Flow Rate FiO2 01/21/17 05:51 97.8 75 17 150/65 (93) 95 Intake and Output 01/21/17 01/21/17 01/22/17 08:00 16:00 00:00 Intake Total 720 ml 240 ml Balance 720 ml 240 ml Assessment & Plan Problem List: (1) DEMENTIA IN OTH DISEASES CLASSD ELSWHR W BEHAVIORAL DISTURB ICD Codes: F02.81 - DEMENTIA IN OTH DISEASES CLASSD ELSWHR W BEHAVIORAL DISTURB Assessment & Plan Patient with no behavioral dyscontrol since admission; compliant with treatment , not endorsing paranoid delusions. Continue treatment. Discharge planning in progress. Justification for Cont. Inpt. At risk for further decompensation if at lower level of care. Discharge Planning Pending acquisition of nursing facility Ramana Castillo MD Jan 21, 2017 15:16
[2017-01-21 17:58] VITALS: BP 151/72; PULSE 85; RESP 16; TEMP 97.7; O2SAT 96
[2017-01-21] MEDS: INSULIN DETEMIR 100 UNITS/ML VIAL SQ SCH ×2 (21:00→21:45)
[2017-01-21] MEDS: REMOVE OLD NICOTINE PATCH T-DERMAL SCH (21:00)
[2017-01-21] MEDS: ATORVASTATIN 20 MG TAB PO SCH (21:00)
[2017-01-21] MEDS: PANTOPRAZOLE SOD 40 MG DELAYED RELEASE TAB PO SCH (21:00)
[2017-01-22 05:46] VITALS: BP 161/74; PULSE 90; RESP 17; TEMP 98.4; O2SAT 99
[2017-01-22] MEDS: LEVOTHYROXINE SODIUM 88 MCG TAB PO SCH (06:15)
[2017-01-22] MEDS: INSULIN ASPART SUPPLEMENTAL SCALE SQ SCH ×4 (08:00→21:00)
[2017-01-22] MEDS: ISOSORBIDE MONONITRATE 30 MG TAB PO SCH ×2 (08:57→21:20)
[2017-01-22] MEDS: ASPIRIN 81 MG CHEW TAB CHEW SCH (08:57)
[2017-01-22] MEDS: amLODIPine BESYLATE 5 MG TAB PO SCH (08:57)
[2017-01-22] MEDS: CLOPIDOGREL 75 MG TAB PO SCH (08:58)
[2017-01-22] MEDS: DIGOXIN 0.125 MG TAB PO SCH (08:58)
[2017-01-22] MEDS: levETIRAcetam 500 MG TAB PO SCH ×2 (08:58→21:20)
[2017-01-22] MEDS: NICOTINE 21 MG/24 HR PATCH T-DERMAL SCH (09:00)
[2017-01-22] MEDS: QUEtiapine FUMARATE 25 MG TAB PO SCH ×3 (09:00→21:20)
[2017-01-22] MEDS: FLUTICASONE PROPIONATE 50 MCG/ACT 16 GM NASAL SPRAY EACH NARE SCH (09:00)
--- NOTE | 2017-01-22 11:46 | HHI.PYPN ---
Subjective Remarks Patient was seen and case discussed with nursing. Patient is alert and oriented 3. Per nursing, she feels that the staff is trying to kill her and that her food is being poisoned. When patient when asked about this she denied these allegations and became irritable. She remains perseverative on discharge to her home instead of nursing facility. Insight remains poor. Behaving well on the unit Mental Status Examination Appearance: Appropriate Consciousness: Alert Orientation: Person, Place, Date/Time Motor Activity: Normal gait Speech: Unremarkable Language: Adequate Fund of Knowledge: Adequate Attention and Concentration: Adequate Memory: Impaired Mood: Appropriate Affect: Appropriate Thought Process & Associations: Goal directed (why he to be discharged home), Linear Thought Content: Delusional Hallucination Type: None Delusion Type: Paranoid (about staff), Other (persecutory and of people trying to poision her but denies today) Suicidal Ideation: No Suicidal Plan: No Suicidal Intention: No Homicidal Ideation: No Homicidal Plan: No Homicidal Intention: No Insight: Poor Judgment: Impulsive Results Vitals/IOs Vital Signs Date Time Temp Pulse Resp B/P (MAP) Pulse Ox O2 Delivery O2 Flow Rate FiO2 01/22/17 05:46 98.4 90 17 161/74 (103) 99 Assessment & Plan Problem List: (1) DEMENTIA IN OTH DISEASES CLASSD ELSWHR W BEHAVIORAL DISTURB ICD Codes: F02.81 - DEMENTIA IN OTH DISEASES CLASSD ELSWHR W BEHAVIORAL DISTURB Assessment & Plan Continue current treatment plan Justification for Cont. Inpt. Patient will decompensate in a less restrictive setting Sin Childers DO Jan 22, 2017 11:46
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
[2017-01-22 18:21] VITALS: BP 141/60; PULSE 88; RESP 18; TEMP 97; O2SAT 100
[2017-01-22] MEDS: INSULIN DETEMIR 100 UNITS/ML VIAL SQ SCH (21:00)
[2017-01-22] MEDS: REMOVE OLD NICOTINE PATCH T-DERMAL SCH (21:00)
[2017-01-22] MEDS: PANTOPRAZOLE SOD 40 MG DELAYED RELEASE TAB PO SCH (21:20)
[2017-01-22] MEDS: ATORVASTATIN 20 MG TAB PO SCH (21:20)
[2017-01-23] MEDS: LEVOTHYROXINE SODIUM 88 MCG TAB PO SCH ×2 (06:00→06:02)
[2017-01-23 06:27] VITALS: BP 116/60; PULSE 69; RESP 16; TEMP 97.7; O2SAT 100
[2017-01-23] MEDS: INSULIN ASPART SUPPLEMENTAL SCALE SQ SCH ×4 (07:36→21:00)
[2017-01-23] MEDS: CLOPIDOGREL 75 MG TAB PO SCH (09:00)
[2017-01-23] MEDS: ISOSORBIDE MONONITRATE 30 MG TAB PO SCH ×2 (09:00→21:51)
[2017-01-23] MEDS: NICOTINE 21 MG/24 HR PATCH T-DERMAL SCH (09:00)
[2017-01-23] MEDS: FLUTICASONE PROPIONATE 50 MCG/ACT 16 GM NASAL SPRAY EACH NARE SCH (09:00)
[2017-01-23] MEDS: ASPIRIN 81 MG CHEW TAB CHEW SCH (09:00)
[2017-01-23] MEDS: ENALAPRIL MALEATE 5 MG TAB PO SCH (09:00)
[2017-01-23] MEDS: levETIRAcetam 500 MG TAB PO SCH ×2 (09:00→21:51)
[2017-01-23] MEDS: DIGOXIN 0.125 MG TAB PO SCH (09:00)
[2017-01-23] MEDS: QUEtiapine FUMARATE 25 MG TAB PO SCH ×3 (09:00→21:51)
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
[2017-01-23] MEDS: REMOVE OLD NICOTINE PATCH T-DERMAL SCH (21:00)
[2017-01-23 21:20] VITALS: BP 144/63; PULSE 73
[2017-01-23] MEDS: INSULIN DETEMIR 100 UNITS/ML VIAL SQ SCH (21:50)
[2017-01-23] MEDS: PANTOPRAZOLE SOD 40 MG DELAYED RELEASE TAB PO SCH (21:51)
[2017-01-23] MEDS: ATORVASTATIN 20 MG TAB PO SCH (21:51)
[2017-01-24 05:42] VITALS: BP 114/56; PULSE 66; RESP 17; TEMP 98.1
[2017-01-24] MEDS: LEVOTHYROXINE SODIUM 88 MCG TAB PO SCH (06:20)
[2017-01-24] MEDS: INSULIN ASPART SUPPLEMENTAL SCALE SQ SCH ×4 (08:00→21:35)
[2017-01-24] MEDS: NICOTINE 21 MG/24 HR PATCH T-DERMAL SCH (09:00)
[2017-01-24] MEDS: FLUTICASONE PROPIONATE 50 MCG/ACT 16 GM NASAL SPRAY EACH NARE SCH (09:00)
[2017-01-24] MEDS: QUEtiapine FUMARATE 25 MG TAB PO SCH ×3 (09:00→21:34)
[2017-01-24] MEDS: levETIRAcetam 500 MG TAB PO SCH ×2 (09:10→21:34)
[2017-01-24] MEDS: ASPIRIN 81 MG CHEW TAB CHEW SCH (09:10)
[2017-01-24] MEDS: ISOSORBIDE MONONITRATE 30 MG TAB PO SCH ×2 (09:10→21:34)
[2017-01-24] MEDS: DIGOXIN 0.125 MG TAB PO SCH (09:11)
[2017-01-24] MEDS: CLOPIDOGREL 75 MG TAB PO SCH (09:11)
[2017-01-24] MEDS: ENALAPRIL MALEATE 5 MG TAB PO SCH (09:12)
--- NOTE | 2017-01-24 16:53 | HHI.PYPN ---
Subjective Remarks Patient seen follow, chart review. Discussed with nursing staff stated that patient has not had a behavioral issues at a, cooperative staff and compliant with medications. Patient found sitting in day room interacting with other peers. Patient states that she has a feeling "good", due to the weekend went "fine", attending groups and activities, eating and drinking well no physical complaints at this time. Patient denies any perceptual disturbances or delusions. Patient states that she was visited by her on Tuesday which she was happy about. Patient continues to request discharge back to her home she states she would like to be with her dying . Review of Systems Except as stated in HPI: all other systems reviewed are Neg Mental Status Examination Appearance: Appropriate Consciousness: Alert Orientation: Person, Place, Date/Time Motor Activity: Normal gait Speech: Unremarkable Language: Adequate Fund of Knowledge: Adequate Attention and Concentration: Adequate Memory: Impaired Mood: Appropriate Affect: Appropriate Thought Process & Associations: Goal directed (why he to be discharged home), Linear Thought Content: Preoccupations (wanting to be with her ) Hallucination Type: None Delusion Type: None, Other (persecutory and of people trying to poision her but denies today) Suicidal Ideation: No Suicidal Plan: No Suicidal Intention: No Homicidal Ideation: No Homicidal Plan: No Homicidal Intention: No Insight: Poor Judgment: Impulsive Results Vitals/IOs Vital Signs Date Time Temp Pulse Resp B/P (MAP) Pulse Ox O2 Delivery O2 Flow Rate FiO2 01/24/17 05:42 98.1 66 17 114/56 (75) 01/23/17 06:27 100 Assessment & Plan Problem List: (1) DEMENTIA IN OTH DISEASES CLASSD ELSWHR W BEHAVIORAL DISTURB ICD Codes: F02.81 - DEMENTIA IN OTH DISEASES CLASSD ELSWHR W BEHAVIORAL DISTURB Assessment & Plan Patient has not had any behavioral dyscontrol, asthma, cooperative with staff. Patient has been compliant with treatment. Patient denies any mood or psychotic symptoms at this time although upset that she is unable to go home and be with her . Patient will have visited by possible delusional facility strategic partnership representative that is close to her home where she can visit with her a daily basis. Continue to monitor mood and behavior, pay current treatment. Discharge planning in progress Justification for Cont. Inpt. At risk for further decompensation if at lower level of care Discharge Planning Patient to be discharged to a nursing facility once one is acquired. Ramana Castillo MD Jan 24, 2017 16:53
[2017-01-24 17:13] VITALS: BP 151/66; PULSE 72; RESP 16; TEMP 97.5; O2SAT 96
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
[2017-01-24 20:20] VITALS: BP 179/70; PULSE 85; RESP 17
[2017-01-24] MEDS: REMOVE OLD NICOTINE PATCH T-DERMAL SCH (21:00)
[2017-01-24] MEDS: ATORVASTATIN 20 MG TAB PO SCH (21:34)
[2017-01-24] MEDS: PANTOPRAZOLE SOD 40 MG DELAYED RELEASE TAB PO SCH (21:34)
[2017-01-24] MEDS: INSULIN DETEMIR 100 UNITS/ML VIAL SQ SCH (21:35)
[2017-01-24 22:37] VITALS: BP 166/69; PULSE 98
[2017-01-24] MEDS: cloNIDine HCL 0.1 MG TAB PO PRN (22:41)
[2017-01-25 06:08] VITALS: BP 152/70; PULSE 94; RESP 16; TEMP 97.8; O2SAT 98
[2017-01-25] MEDS: LEVOTHYROXINE SODIUM 88 MCG TAB PO SCH (06:32)
[2017-01-25] MEDS: INSULIN ASPART SUPPLEMENTAL SCALE SQ SCH ×4 (08:00→21:00)
[2017-01-25] MEDS: CLOPIDOGREL 75 MG TAB PO SCH (08:09)
[2017-01-25] MEDS: ASPIRIN 81 MG CHEW TAB CHEW SCH (08:09)
[2017-01-25] MEDS: ISOSORBIDE MONONITRATE 30 MG TAB PO SCH ×2 (08:09→21:35)
[2017-01-25] MEDS: levETIRAcetam 500 MG TAB PO SCH ×2 (08:09→21:35)
[2017-01-25] MEDS: DIGOXIN 0.125 MG TAB PO SCH (08:09)
[2017-01-25] MEDS: ENALAPRIL MALEATE 5 MG TAB PO SCH (08:09)
[2017-01-25] MEDS: FLUTICASONE PROPIONATE 50 MCG/ACT 16 GM NASAL SPRAY EACH NARE SCH (08:10)
[2017-01-25] MEDS: QUEtiapine FUMARATE 25 MG TAB PO SCH ×3 (08:11→21:35)
[2017-01-25] MEDS: NICOTINE 21 MG/24 HR PATCH T-DERMAL SCH (08:11)
--- NOTE | 2017-01-25 10:10 | HHI.PR ---
Subjective Remarks Patient seen and examined No complaints States she has good night sleep Objective Vitals Vital Signs Date Time Temp Pulse Resp B/P (MAP) Pulse Ox O2 Delivery O2 Flow Rate FiO2 01/25/17 06:08 97.8 94 16 152/70 (97) 98 01/24/17 22:37 98 166/69 (101) 01/24/17 20:20 85 17 179/70 (106) 01/24/17 17:13 97.5 72 16 151/66 (94) 96 I/O 01/24/17 01/24/17 01/24/17 01/25/17 01/25/17 01/25/17 07:00 15:00 23:00 07:00 15:00 23:00 Intake Total 240 ml 240 ml Balance 240 ml 240 ml Intake Oral 240 ml 240 ml Objective Remarks GENERAL: NAD SKIN: Warm and dry. HEAD: Normocephalic. EYES: No scleral icterus. No injection or drainage. NECK: Supple, trachea midline. No JVD or lymphadenopathy. CARDIOVASCULAR: Regular rate and rhythm without murmurs, gallops, or rubs. RESPIRATORY: Breath sounds equal bilaterally. No accessory muscle use. GASTROINTESTINAL: Abdomen soft, non-tender, nondistended. MUSCULOSKELETAL: No cyanosis, or edema. BACK: Nontender without obvious deformity. No CVA tenderness. A/P Assessment and Plan 76-year-old female with Adjustment disorder, psychosis Dementia - Managed by psychiatry team HTN, chronic- some elevated readings CAD, history of CABG/AICD placement HLD, chronic - Continue home medications atorvastatin 20 mg daily at bedtime, Plavix, isosorbide 30 mg twice a day, aspirin 81 mg daily, digoxin - Monitor BP trend -Increase Enalapril to 10 mg daily - Will give additional 5mg PO X 1 now -Clonidine when necessary DM 2, - Continue Levemir 16 units hs insulin sliding scale - Monitor Accu-Cheks- Seizure disorder, chronic- neuro stable - Continue Keppra - Seizure precaution - no evidence of seizure episode Hypothyroidism -Continue levothyroxine 88 g by mouth daily. Nasal Congestion- improved - Continue Flonase. DVT prop patient is ambulatory [facility] will sign off and reconsult Ramana Carvalho MD Jan 25, 2017 10:10
[2017-01-25] MEDS ORDERED: ENALAPRIL MALEATE 5 MG TAB PO ONE (10:15)
[2017-01-25] MEDS ORDERED: cloNIDine HCL 0.1 MG TAB PO PRN (10:15)
--- NOTE | 2017-01-25 13:06 | HHI.PYPN ---
Subjective Remarks Patient seen for follow, chart review. Patient found the day room participating in activities was able to engage in interview today. Discussion with nursing staff reported no changes patient no behavioral issues compliant with medications. Patient states that she is feeling fine, denies any physical complaints, continues to comply with treatment denying any adverse drug reactions. Patient states that her mood has been "fine" denies any depressive or manic symptoms, patient denies any perceptual disturbances or delusions at this time. Patient is aware that she'll be visited by a [facility] facility employment representative which she is happy about and that this facility as near to where her is in [place]. Review of Systems Except as stated in HPI: all other systems reviewed are Neg Mental Status Examination Appearance: Appropriate Consciousness: Alert Orientation: Person, Place, Date/Time Motor Activity: Normal gait Speech: Unremarkable Language: Adequate Fund of Knowledge: Adequate Attention and Concentration: Adequate Memory: Impaired Mood: Appropriate Affect: Appropriate Thought Process & Associations: Goal directed (why he to be discharged home), Linear Thought Content: Preoccupations (wanting to be with her ) Hallucination Type: None Delusion Type: None Suicidal Ideation: No Suicidal Plan: No Suicidal Intention: No Homicidal Ideation: No Homicidal Plan: No Homicidal Intention: No Insight: Poor Judgment: Impulsive Results Vitals/IOs Vital Signs Date Time Temp Pulse Resp B/P (MAP) Pulse Ox O2 Delivery O2 Flow Rate FiO2 01/25/17 06:08 97.8 94 16 152/70 (97) 98 Intake and Output 01/25/17 01/25/17 01/26/17 08:00 16:00 00:00 Intake Total 240 ml Balance 240 ml Assessment & Plan Problem List: (1) DEMENTIA IN OTH DISEASES CLASSD ELSWHR W BEHAVIORAL DISTURB ICD Codes: F02.81 - DEMENTIA IN OTH DISEASES CLASSD ELSWHR W BEHAVIORAL DISTURB Assessment & Plan Patient with no behavioral dyscontrol, compliant with treatment, noted to be participatory in groups and activities on the unit, calm and cooperative with staff. Continue current treatment. Patient to meet with a employment representative from nursing facility today. Discharge planning in progress Justification for Cont. Inpt. At risk for further decompensation if at lower level of care Discharge Planning Patient possibly to be discharged to nursing facility in [place]. Ramana Castillo MD Jan 25, 2017 13:06
[2017-01-25 18:00] VITALS: BP 120/54; PULSE 71; RESP 16; TEMP 97.4; O2SAT 100
[2017-01-25] MEDS: REMOVE OLD NICOTINE PATCH T-DERMAL SCH (21:00)
[2017-01-25 21:09] VITALS: BP 165/69; PULSE 70
[2017-01-25] MEDS: ATORVASTATIN 20 MG TAB PO SCH (21:35)
[2017-01-25] MEDS: PANTOPRAZOLE SOD 40 MG DELAYED RELEASE TAB PO SCH (21:35)
[2017-01-25] MEDS: INSULIN DETEMIR 100 UNITS/ML VIAL SQ SCH (21:37)
[2017-01-26 05:48] VITALS: BP 152/65; PULSE 62; RESP 18; TEMP 97.4; O2SAT 100
[2017-01-26] MEDS: LEVOTHYROXINE SODIUM 88 MCG TAB PO SCH (06:12)
[2017-01-26] MEDS: INSULIN ASPART SUPPLEMENTAL SCALE SQ SCH ×4 (07:46→21:00)
[2017-01-26] MEDS: diphenhydrAMINE HCL 50 MG CAP PO PRN (08:16)
[2017-01-26] MEDS: FLUTICASONE PROPIONATE 50 MCG/ACT 16 GM NASAL SPRAY EACH NARE SCH (08:16)
[2017-01-26] MEDS: CLOPIDOGREL 75 MG TAB PO SCH (08:17)
[2017-01-26] MEDS: ASPIRIN 81 MG CHEW TAB CHEW SCH (08:17)
[2017-01-26] MEDS: ENALAPRIL MALEATE 10 MG TAB PO SCH (08:17)
[2017-01-26] MEDS: NICOTINE 21 MG/24 HR PATCH T-DERMAL SCH (08:17)
[2017-01-26] MEDS: DIGOXIN 0.125 MG TAB PO SCH (08:23)
[2017-01-26] MEDS: QUEtiapine FUMARATE 25 MG TAB PO SCH ×3 (08:25→21:34)
[2017-01-26] MEDS: levETIRAcetam 500 MG TAB PO SCH ×2 (08:25→21:33)
[2017-01-26] MEDS: ISOSORBIDE MONONITRATE 30 MG TAB PO SCH ×2 (09:00→21:33)
--- NOTE | 2017-01-26 10:58 | PD.TTN ---
Patient Problems 1. Discharge planning 2. Medication compliance 3. Knowledge deficit 4. Lack of coping skills Progress Toward Goals Provider Present: Dr. Karissa Castillo Provider Input: Patient has returned to [place] after recently being discharged to SNF. Patient will be on medication regiment and will continued to be monitored for progress. 01/19 remains paranoid, no insight , continue treatment 01/26 Patient remains to be at baseline, but continues to be paranoid and limited insight. Nurse(s) Input: Patient is paranoid and somewhat isolative to the room. patient shows no behavioral issues on the unit. Patient is compliant with medications. 01/19 Katie : patient is med compliant more paranoid at night, pleasant refuses her CPap 01/26 patient is medication compliant and is somewhat isolative to room. Patient is pleasant and cooperative. Psychiatric Counselors Present: Ronel Pretty LCSW, Michelle Barros, [facility] Psych Therapist Input: Patient is paranoid and endorses feelings of anger and depression. patient states that she wants to reside with her whom is ill. Counselor has spoken with daughter in regards to patients care. Will continue to look for placement for patient. 01/19 is a placement issue and wants to be with her if not with disruptive to placement beneficial if she goes with into a placement if possible 01/26: patient continues to be discharged focus, but is open to going to senior living, located close to family in [place]. Patient is tearful and is discharged focus. Group Spec/RT/OT/ANDERSON Present: MONICA Perkins, Mauri Solorzano, OT Group Spec/RT/OT/ANDERSON Input: Patient is selective with groups. 01/19 attends most groups appropriately, becomes tearful when discussing discharge , intrusive to other patients, comes to exercise and bingo 01/26: Patient attends most groups and is appropriate, patient is discharged focused, tearful and active in participation. Michelle Barros [facility] Jan 26, 2017 10:58
--- NOTE | 2017-01-26 14:38 | HHI.PYPN ---
Subjective Remarks Patient is seen for follow-up, chart review. Patient found, cooperative today with interview today. Patient seen with a electronics parts sales representative from [facility] in [place] along with therapist which patient seemed to be open to the idea of living at this facility. Patient states that she is happy that this is a facilities close to her home where she is able to visit with her a daily basis. She is aware that she continues to require approval from the facility but this feeling comfortable with going to this facility. Patient during interview began expressing some paranoia concerning her daughter and her daughter is trying to take over her home. Patient denies any perceptual disturbances, SI or HI but continues with some paranoia concerning her family. Patient has not had any behavioral dyscontrol since admission has been cooperative with staff. Review of Systems Except as stated in HPI: all other systems reviewed are Neg Mental Status Examination Appearance: Appropriate Consciousness: Alert Orientation: Person, Place, Date/Time Motor Activity: Normal gait Speech: Unremarkable Language: Adequate Fund of Knowledge: Adequate Attention and Concentration: Adequate Memory: Impaired Mood: Appropriate Affect: Appropriate Thought Process & Associations: Intact, Linear Thought Content: Preoccupations (wanting to be with her ) Hallucination Type: None Delusion Type: None Suicidal Ideation: No Suicidal Plan: No Suicidal Intention: No Homicidal Ideation: No Homicidal Plan: No Homicidal Intention: No Insight: Poor Judgment: Impulsive Results Vitals/IOs Vital Signs Date Time Temp Pulse Resp B/P (MAP) Pulse Ox O2 Delivery O2 Flow Rate FiO2 01/26/17 05:48 97.4 62 18 152/65 (94) 100 Intake and Output 01/26/17 01/26/17 01/27/17 08:00 16:00 00:00 Intake Total 0 ml 600 ml Balance 0 ml 600 ml Assessment & Plan Problem List: (1) DEMENTIA IN OTH DISEASES CLASSD ELSWHR W BEHAVIORAL DISTURB ICD Codes: F02.81 - DEMENTIA IN OTH DISEASES CLASSD ELSWHR W BEHAVIORAL DISTURB Assessment & Plan Patient at this time has not had any behavioral dyscontrol, compliant with treatment, but continues to have paranoid ideations pertaining to her family. Continue current treatment. Approval pending acceptance to nursing facility. Discharge planning in progress. Justification for Cont. Inpt. At risk for further decompensation if at lower level of care Discharge Planning Patient pending acceptance to nursing facility. Ramana Castillo MD Jan 26, 2017 14:38
[2017-01-26 17:03] VITALS: BP 167/70; PULSE 81; RESP 17; TEMP 97.7; O2SAT 98
[2017-01-26] MEDS: INSULIN DETEMIR 100 UNITS/ML VIAL SQ SCH (21:00)
[2017-01-26] MEDS: PANTOPRAZOLE SOD 40 MG DELAYED RELEASE TAB PO SCH (21:33)
[2017-01-26] MEDS: ATORVASTATIN 20 MG TAB PO SCH (21:34)
[2017-01-27 05:59] VITALS: BP 103/50; PULSE 72; RESP 16; TEMP 97.9; O2SAT 98
[2017-01-27] MEDS: LEVOTHYROXINE SODIUM 88 MCG TAB PO SCH (06:00)
[2017-01-27] MEDS: INSULIN ASPART SUPPLEMENTAL SCALE SQ SCH ×4 (07:50→21:00)
[2017-01-27] MEDS: CLOPIDOGREL 75 MG TAB PO SCH (08:30)
[2017-01-27] MEDS: ISOSORBIDE MONONITRATE 30 MG TAB PO SCH ×2 (08:30→21:00)
[2017-01-27] MEDS: DIGOXIN 0.125 MG TAB PO SCH (08:30)
[2017-01-27] MEDS: ASPIRIN 81 MG CHEW TAB CHEW SCH (08:30)
[2017-01-27] MEDS: levETIRAcetam 500 MG TAB PO SCH ×2 (08:30→20:59)
[2017-01-27] MEDS: FLUTICASONE PROPIONATE 50 MCG/ACT 16 GM NASAL SPRAY EACH NARE SCH (08:31)
[2017-01-27] MEDS: ENALAPRIL MALEATE 10 MG TAB PO SCH (08:31)
[2017-01-27] MEDS: QUEtiapine FUMARATE 25 MG TAB PO SCH ×3 (08:31→21:00)
--- NOTE | 2017-01-27 10:50 | HHI.PYPN ---
Subjective Remarks Patient seen for follow-up, chart reviewed. Patient found sitting in day room, cooperative. Patient states that she was excited that she was seen by this ambulatory service representative from nursing facility which is fine" her home. Patient states that this is much better than being in the hospital as well as acknowledging that she is happy that she will be able to see her more frequently. Patient denies any physical complete at this time reports tolerating medications well. Although patient sometimes has moments of forgetfulness which required re-orientation but is aware of her current diagnoses of dementia. Patient continues to have paranoid ideations concerning her daughter and that her daughter wants to take over her home and is against her. She denies any other perceptual disturbances or delusions. Collateral information obtained from daughter which proposal manager writer and therapist contacted pertaining to discharge to this potential nursing facility. It was explained to patient's daughter that the nursing facility which she has been except that requires monetary fees to maintain her living at this residence but daughter is resistant to the idea of having to pay the money to have patient live there. Daughter states that her father's income is about $3000 and that she is unwilling to give up $2000 to pay for the patient's living expenses there at the custodial. The other option last was to have patient return back to her home with home health services to provide supervision and support with the recommendation that the patient's live with the daughter to minimize risk of behavioral disturbances that may occur with dementia. Daughter was willing to have the patient return back home with services for supervision. Review of Systems Except as stated in HPI: all other systems reviewed are Neg Mental Status Examination Appearance: Appropriate Consciousness: Alert Orientation: Person, Place, Date/Time Motor Activity: Normal gait Speech: Unremarkable Language: Adequate Fund of Knowledge: Adequate Attention and Concentration: Adequate Memory: Impaired Mood: Appropriate Affect: Appropriate Thought Process & Associations: Intact, Linear Thought Content: Preoccupations (wanting to be with her ) Hallucination Type: None Delusion Type: Paranoid Suicidal Ideation: No Suicidal Plan: No Suicidal Intention: No Homicidal Ideation: No Homicidal Plan: No Homicidal Intention: No Insight: Poor Judgment: Impulsive Results Vitals/IOs Vital Signs Date Time Temp Pulse Resp B/P (MAP) Pulse Ox O2 Delivery O2 Flow Rate FiO2 01/27/17 05:59 97.9 72 16 103/50 (67) 98 Intake and Output 01/27/17 01/27/17 01/28/17 08:00 16:00 00:00 Intake Total 220 ml Balance 220 ml Assessment & Plan Problem List: (1) DEMENTIA IN OTH DISEASES CLASSD ELSWHR W BEHAVIORAL DISTURB ICD Codes: F02.81 - DEMENTIA IN OTH DISEASES CLASSD ELSWHR W BEHAVIORAL DISTURB Assessment & Plan Patient continues to be compliant with treatment, cooperative with staff with no behavioral disturbances, but continues to have paranoid delusions of her daughter wanting to take over her home. Patient to continue current treatment. Patient to be discharged back to residence tomorrow with services in place for supervision and medical needs. Justification for Cont. Inpt. At risk for further decompensation if at lower level of care Discharge Planning Patient to be discharged back to her home with services put in place for supervision and medical needs. Ramana Castillo MD Jan 27, 2017 10:50
[2017-01-27 16:41] VITALS: BP 158/79; PULSE 81; RESP 17; TEMP 97; O2SAT 99
[2017-01-27] MEDS: INSULIN DETEMIR 100 UNITS/ML VIAL SQ SCH (21:00)
[2017-01-27] MEDS: PANTOPRAZOLE SOD 40 MG DELAYED RELEASE TAB PO SCH (21:00)
[2017-01-27] MEDS: ATORVASTATIN 20 MG TAB PO SCH (21:00)
[2017-01-28] MEDS: LEVOTHYROXINE SODIUM 88 MCG TAB PO SCH (05:07)
[2017-01-28 05:31] VITALS: BP 159/75; PULSE 80; RESP 16; TEMP 96.7; O2SAT 98
[2017-01-28] MEDS: INSULIN ASPART SUPPLEMENTAL SCALE SQ SCH ×2 (08:00→12:00)
[2017-01-28] MEDS: DIGOXIN 0.125 MG TAB PO SCH (08:31)
[2017-01-28] MEDS: ISOSORBIDE MONONITRATE 30 MG TAB PO SCH (08:31)
[2017-01-28] MEDS: levETIRAcetam 500 MG TAB PO SCH (08:32)
[2017-01-28] MEDS: ASPIRIN 81 MG CHEW TAB CHEW SCH (08:32)
[2017-01-28] MEDS: ENALAPRIL MALEATE 10 MG TAB PO SCH (08:32)
[2017-01-28] MEDS: CLOPIDOGREL 75 MG TAB PO SCH (08:32)
[2017-01-28] MEDS: FLUTICASONE PROPIONATE 50 MCG/ACT 16 GM NASAL SPRAY EACH NARE SCH (08:32)
[2017-01-28] MEDS: QUEtiapine FUMARATE 25 MG TAB PO SCH (09:00)
[2017-01-28] MEDS ORDERED: ENAL10TA PO (10:18)
[2017-01-28] MEDS ORDERED: SERO25TA PO ×2 (10:18)
[2017-01-28] MEDS ORDERED: LEVEMIR SQ (10:18)
[2017-01-28] MEDS ORDERED: PLAV75TA29 PO (10:18)
[2017-01-28] MEDS ORDERED: PANT40TA3 PO (10:18)
[2017-01-28] MEDS ORDERED: FLUT50SP EACH NARE (10:18)
[2017-01-28] MEDS ORDERED: ASPI81 CHEW (10:18)
[2017-01-28] MEDS ORDERED: ATOR20TA15 PO (10:18)
[2017-01-28] MEDS ORDERED: SYNT88TA PO (10:18)
[2017-01-28] MEDS ORDERED: LEVE10003 PO (10:18)
[2017-01-28] MEDS ORDERED: DIGO0.12 PO (10:18)
[2017-01-28] MEDS ORDERED: ISOS30TA3 PO (10:18)
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
== END 2017-01-28 12:00 | disposition home or self-care (01) | DRG 884 ==
LOC: NEPJ 19:52 → NEDA 22:53 → H260 23:05
PROVIDERS: ADMIT Student in an Organized Health Care Education/Training Program; ATTEND Student in an Organized Health Care Education/Training Program
DX: F03.91 Unspecified dementia, unspecified severity, with behavioral disturbance (principal); E11.65 Type 2 diabetes mellitus with hyperglycemia; I50.9 Heart failure, unspecified; I11.0 Hypertensive heart disease with heart failure; G40.909 Epilepsy, unspecified, not intractable, without status epilepticus; F22 Delusional disorders; K21.9 Gastro-esophageal reflux disease without esophagitis; F41.9 Anxiety disorder, unspecified; H91.90 Unspecified hearing loss, unspecified ear; E89.0 Postprocedural hypothyroidism; Z96.652 Presence of left artificial knee joint; E78.5 Hyperlipidemia, unspecified; F31.9 Bipolar disorder, unspecified; I25.10 Atherosclerotic heart disease of native coronary artery without angina pectoris; Z95.810 Presence of automatic (implantable) cardiac defibrillator; Z95.1 Presence of aortocoronary bypass graft; I25.2 Old myocardial infarction; Z86.73 Personal history of transient ischemic attack (TIA), and cerebral infarction without residual deficits; Z79.4 Long term (current) use of insulin
CPT/HCPCS: 80048; 80053; 80061; 80307; 81001; 82948; 83036; 85025; 96372; J1815; Q0163